=== PATIENT | male | born 1950 | race Caucasian/White ===

== ENCOUNTER 2024-03-09 16:54 | Emergency (ER) | payer MEDICARE, SELFPAY ==
[2024-03-09 17:02] VITALS: BP 141/79; PULSE 74; TEMP 36.6; O2SAT 100; BMI 23.6
--- NOTE | 2024-03-09 17:46 | CT_ITS ---
The [address] [address] Patient Name: MIMI MCBRIDE MRN: [id number] date: 1950 Sex: M Assigned Patient Location: ER Current Patient Location: Accession/Order Number: [id number] Exam Date: 03/09/2024 18:06 Report Date: 03/09/2024 20:15 At the request of: HORTENCIA RODRÍGUEZ Procedure: CT abdomen pelvis wo con EXAM: CT abdomen pelvis wo con , 03/09/2024 HISTORY: right flank pain, r/o stone COMPARISON: None. TECHNIQUE: CT scan of the abdomen and pelvis was performed without contrast, using kidney stone protocol. Coronal and sagittal reconstructions were performed. Dose reduction techniques were achieved by using automated exposure control and/or adjustment of mA and/or kV according to patient size and/or use of iterative reconstruction technique. FINDINGS: An obstructing calculus is seen in the distal right ureter measuring 9 mm, at the uretero-vesicle junction, with mild hydronephrosis and hydroureter. Mild right sided perinephric stranding. Punctate intrarenal calculi are seen in the right kidney measuring 1-2 mm. Probable subcentimeter cortical cyst mid right kidney. The left kidney shows subcentimeter hyperdense cyst. No stone or dilatation in the left kidney and ureter. Urinary bladder is partially filled. Moderate prostatic enlargement. The liver demonstrates a subcentimeter round hypodensity in the left lobe, likely representing a cyst or hemangioma. The spleen, pancreas, gallbladder, bile ducts and both adrenal glands are unremarkable. Moderate atherosclerotic calcification of the abdominal aorta. Unremarkable IVC. No enlarged lymph node in the abdomen, retroperitoneum or the pelvis. Colonic diverticulosis predominantly involving the sigmoid and left-sided colon. No bowel loop dilatation or bowel wall thickening. The appendix is unremarkable. No free fluid in the peritoneal cavity. The bone windows demonstrate mild degenerative changes lower thoracic and lumbar spine. Moderate disc disease at L5-S1 level. Scans through the lung bases are clear. CT/CT abdomen pelvis wo con IMPRESSION: 1. Obstructing calculus in the distal right ureter measuring 9 mm, with mild hydronephrosis and hydroureter. 2. Punctate right nephrolithiasis. 3. Colonic diverticulosis without diverticulitis. 4. Moderate prostatic enlargement. Electronically authenticated by: VANE PUENTES Date: 03/09/2024 20:15
--- NOTE | 2024-03-09 17:47 | ED_ITS ---
Documented by User: Domenic Mitchell MD 03/09/24 17:48 HPI HPI - General Adult General Chief complaint: Urogenital-Male Stated complaint: BACK PAIN Time Seen by Provider: 03/09/24 17:44 Source: patient Mode of arrival: walk-in Limitations: no limitations History of Present Illness HPI narrative: 73-year-old male presents for right flank pain. It started 3 days ago and was not precipitated by any injury. It feels like when he has had a kidney stone in the past. The pain seemed to get better but then came back again this afternoon. No dysuria or hematuria. No fever or vomiting or left-sided pain. The pain is moderate to severe. Related Data Home Medications ?Medication ?Instructions ?Recorded ?Confirmed gabapentin 100 mg capsule mg 03/09/24 glyburide 5 mg tablet mg 03/09/24 insulin glargine 100 unit/mL (3 unit subcut 03/09/24 mL) subcutaneous pen (Lantus Solostar U-100 Insulin) lisinopril 20 tab 03/09/24 mg-hydrochlorothiazide 25 mg tablet simvastatin 40 mg tablet mg 03/09/24 Allergies Allergy/AdvReac Type Severity Reaction Status Date / Time No Known Drug Allergies Allergy Verified 03/09/24 17:01 Opioid HPI Opioid Management Most Recent Opioid Data: Last JUN Pain Assessment 03/09/24 18:03 Review of Systems ROS Narrative A ten point review of systems is negative except as noted above. PFSH PFSH Social History Little interest or pleasure in doing things: not at all Feeling down, depressed, or hopeless: not at all Exam Narrative Exam Narrative: Nurses note and vital signs reviewed and patient is not hypoxic. General: The patient appears well and in no apparent distress. Patient is resting comfortably on cart. Skin: Warm, dry, no pallor noted. There is no rash noted. Head: Normocephalic, atraumatic Eye: Normal conjunctiva, no drainage Ears, Nose, Mouth, and Throat: oral mucosa is moist. Nares patent. Cardiovascular: Regular Rate and Rhythm Respiratory: Patient is in no distress, no accessory muscle use, lungs are clear to auscultation, no wheezing, rales or rhonchi Back: non-tender, no CVA tenderness bilaterally to percussion. GI: Soft and nontender Musculoskeletal: The patient has no evidence of calf tenderness, no pitting edema, symmetrical pulses noted bilaterally Neurological: A&O, normal speech Psychiatric: Cooperative Constitutional Vital Signs, click to edit/add: Last Vital Signs Temp 97.8 F 03/09/24 17:02 Pulse 74 03/09/24 17:02 Resp 16 03/09/24 17:02 BP 141/79 03/09/24 17:02 Pulse Ox 100 03/09/24 17:02 O2 Del Method Room Air 03/09/24 17:02 Course Vital Signs Vital signs: Vital Signs Temperature 97.8 F 03/09/24 17:02 Pulse Rate 74 03/09/24 17:02 Respiratory Rate 16 03/09/24 17:02 Blood Pressure 141/79 03/09/24 17:02 Pulse Oximetry 100 03/09/24 17:02 Oxygen Delivery Method Room Air 03/09/24 17:02 Temperature 97.8 F 03/09/24 17:02 Pulse Rate 74 03/09/24 17:02 Respiratory Rate 16 03/09/24 17:02 Blood Pressure 141/79 03/09/24 17:02 Pulse Oximetry 100 03/09/24 17:02 Oxygen Delivery Method Room Air 03/09/24 17:02 Medical Decision Making Lab Data Labs: Lab Results 03/09/24 03/09/24 Range/Units 17:50 17:55 WBC 11.9 H (4.0-11.0) 10^3/uL RBC 5.09 (4.70-6.10) 10^6/uL Hgb 15.2 (14.0-18.0) g/dL Hct 44.4 (42.0-54.0) % MCV 87.2 (80.0-94.0) fL MCH 29.9 (25.9-34.0) pg MCHC 34.2 (29.9-35.2) g/dL RDW 12.5 (11.0-15.0) % Plt Count 175 (150-450) 10^3/uL MPV 12.1 (9.5-13.5) fL Neut % (Auto) 75.5 H (43.0-75.0) % Lymph % (Auto) 11.1 L (20.5-60.0) % [place] % (Auto) 8.7 (1.7-12.0) % Eos % (Auto) 3.6 (0.9-7.0) % Baso % (Auto) 0.8 (0.2-2.0) % Neut # (Auto) 9.0 H (1.4-6.5) 10^3/uL Lymph # (Auto) 1.3 (1.2-3.8) 10^3/uL [place] # (Auto) 1.0 H (0.3-0.8) 10^3/uL Eos # (Auto) 0.4 (0.0-0.7) 10^3/uL Baso # (Auto) 0.1 (0.0-0.1) 10^3/uL Abs Immat Gran (auto) 0.03 (0.00-0.03) 10^3/uL Imm/Tot Granulo (auto) 0.3 (0.0-0.5) % Sodium 139 (136-145) mmol/L Potassium 4.2 (3.5-5.1) mmol/L Chloride 103 (98-107) mmol/L Carbon Dioxide 28.8 (21.0-32.0) mmol/L Anion Gap 11.4 BUN 27.0 H (7.0-18.0) mg/dL Creatinine 1.59 H (0.70-1.30) mg/dL Est GFR ( Amer) 52 L (>=60 mL/min/1.73m^2) Est GFR (Non-Af Amer) 43 L (>=60 mL/min/1.73m^2) BUN/Creatinine Ratio 17.0 Glucose 180 H (74-106) mg/dL Calcium 9.8 (8.5-10.1) mg/dL Urine Color Lt. yellow (YELLOW) Urine Clarity Clear (CLEAR) Urine pH 5.5 (5.0-9.0) Ur Specific [place] 1.025 (1.005-1.025) Urine Protein Negative (NEG/TRACE) mg/dL Urine Glucose (UA) Negative (NEGATIVE) mg/dL Urine Ketones Negative (NEGATIVE) mg/dL Urine Occult Blood Moderate A (NEGATIVE) Urine Nitrite Negative (NEGATIVE) Urine Bilirubin Negative (NEGATIVE) Urine Urobilinogen 0.2 (0.2-1.0) EU/dL Ur Leukocyte Esterase Negative (NEGATIVE) Urine RBC 5-10 A (0-2) #/HPF Urine WBC 0-2 A (NONE SEEN) #/HPF Ur Squamous Epith Cells None seen (NONE/RARE) #/LPF Urine Crystals None seen (None Seen) #/HPF Urine Bacteria Trace A (NONE SEEN) #/HPF Urine Casts None seen (NONE SEEN) #/LPF Urine Mucus None seen (NONE SEEN) Ur Culture Indicated? No Imaging Data CT scan - abdomen: Radiologist's impression: ITS Impressions Abdomen/Pelvis CT 03/09/24 17:46 IMPRESSION: 1. Obstructing calculus in the distal right ureter measuring 9 mm, with mild hydronephrosis and hydroureter. 2. Punctate right nephrolithiasis. 3. Colonic diverticulosis without diverticulitis. 4. Moderate prostatic enlargement. Electronically authenticated by: VANE PUENTES Date: 03/09/2024 20:15 Discharge Plan Discharge Chief Complaint: Urogenital-Male Clinical Impression: Kidney stone on right side Patient Disposition: Home, Self-Care Prescriptions / Home Meds: No Action gabapentin 100 mg capsule glyburide 5 mg tablet simvastatin 40 mg tablet lisinopril-hydrochlorothiazide 20-25 mg tablet insulin glargine [Lantus Solostar U-100 Insulin] 100 unit/mL (3 mL) insulin pen SUBCUT Print Language: Congolese Instructions: Kidney Stones (ED), Hydronephrosis (ED) Additional Instructions: Please do not hesitate to return for intractable pain, nausea, vomiting, muscle aches, back pain, fever, chills, or new or worsening symptoms. You will want to make certain that you follow-up with a urologist to soon as possible. Please let them know that you were seen in the emergency department and you have a 9 mm ureteral stone on the right side. All of the documentation is in order and they may call the hospital to get records to facilitate continuity of care. Referrals: Physician,Non-Staff, [Physician] - 1 week Kian Dan MD [Physician] - 1 week (9 mm right ureteral stone) Documented by User: Katlyn Busby, 03/09/24 20:40 HPI HPI - General Adult General Chief complaint: Urogenital-Male Stated complaint: BACK PAIN Time Seen by Provider: 03/09/24 17:44 Related Data Home Medications ?Medication ?Instructions ?Recorded ?Confirmed gabapentin 100 mg capsule mg 03/09/24 glyburide 5 mg tablet mg 03/09/24 insulin glargine 100 unit/mL (3 unit subcut 03/09/24 mL) subcutaneous pen (Lantus Solostar U-100 Insulin) lisinopril 20 tab 03/09/24 mg-hydrochlorothiazide 25 mg tablet simvastatin 40 mg tablet mg 03/09/24 Allergies Allergy/AdvReac Type Severity Reaction Status Date / Time No Known Drug Allergies Allergy Verified 03/09/24 17:01 Opioid HPI Opioid Management Most Recent Opioid Data: Last MAR Pain Assessment 03/09/24 18:03 PFSH PFSH Social History Little interest or pleasure in doing things: not at all Feeling down, depressed, or hopeless: not at all Exam Constitutional Vital Signs, click to edit/add: Last Vital Signs Temp 97.8 F 03/09/24 17:02 Pulse 74 03/09/24 17:02 Resp 16 03/09/24 17:02 BP 141/79 03/09/24 17:02 Pulse Ox 100 03/09/24 17:02 O2 Del Method Room Air 03/09/24 17:02 Course Vital Signs Vital signs: Vital Signs Temperature 97.8 F 03/09/24 17:02 Pulse Rate 74 03/09/24 17:02 Respiratory Rate 16 03/09/24 17:02 Blood Pressure 141/79 03/09/24 17:02 Pulse Oximetry 100 03/09/24 17:02 Oxygen Delivery Method Room Air 03/09/24 17:02 Temperature 97.8 F 03/09/24 17:02 Pulse Rate 74 03/09/24 17:02 Respiratory Rate 16 03/09/24 17:02 Blood Pressure 141/79 03/09/24 17:02 Pulse Oximetry 100 03/09/24 17:02 Oxygen Delivery Method Room Air 03/09/24 17:02 Medical Decision Making MDM Narrative Medical decision making narrative: 19:00 I assumed care from the patient from my colleague at 7 PM when I assumed care of the department. I was informed that this gentleman has a history of renal calculi and was presenting with: signs and symptoms of his stone. Preliminary assessment revealed that there was a stone on the right side and we wanted to have an official report returned before ultimate disposition of the patient. 20:32 CT scan returned. He had an opportunity to review the report and discussed the results with the patient and clarify a few more details. First of all, I explained to the patient that he had a 9 mm stone in his right UVJ. It explained to him that a stone of this size typically is going to require some surgical intervention. The patient does not know how big of stone he has passed in the past by himself. The patient does not currently have a urologist. He had a urologist but they had . The patient is familiar with Dr. Dan as his daughter does see that physician as well. Dr. Dan happens to also be on-call today. The pain is currently a 0 out of 10. In the past he has used Flomax, [place], and Zofran and has had good results. I did review the patient's blood work. He has a white blood cell count of 11.9. He did have some vomiting 3 days ago. And he is in pain so I think he has some stress demargination. His BUN is creatinine are 27/1.59. I did query his medical record documentation I do not see an old BUN or creatinine to compare it to. This should also be followed. The patient has mild hydronephrosis and hydroureter at this time and is no evidence of sepsis nor does he have evidence of an infection. Therefore, I think the patient is safe to be dispositioned home with expectant outpatient management and therapy. I specifically spoke to the patient and his about reasons to return to the emergency department. These included: Fever, chills, rigors, intractable nausea, vomiting, or pain. Patient should return if there is myalgias or inability to urinate. Patient expresses verbal understanding. Patient's is at bedside and they do ask about diabetes. The patient apparently was recently started on Lantus insulin and they are not sure how the current medications I am prescribing will affect his diabetes medications so I explained that to them that it will not affect the diabetic medications however his blood sugar can be an indicator of his illness as his blood sugar can go up with infections etc. All questions were answered to the patient and his satisfaction. I did review all of the scan with them as well. Medical Records Medical records reviewed: Yes I reviewed the patient's medical records (Patient has no laboratories for comparison.) Lab Data Lab results reviewed: Yes I reviewed the patient's lab results Labs: Lab Results 03/09/24 03/09/24 Range/Units 17:50 17:55 WBC 11.9 H (4.0-11.0) 10^3/uL RBC 5.09 (4.70-6.10) 10^6/uL Hgb 15.2 (14.0-18.0) g/dL Hct 44.4 (42.0-54.0) % MCV 87.2 (80.0-94.0) fL MCH 29.9 (25.9-34.0) pg MCHC 34.2 (29.9-35.2) g/dL RDW 12.5 (11.0-15.0) % Plt Count 175 (150-450) 10^3/uL MPV 12.1 (9.5-13.5) fL Neut % (Auto) 75.5 H (43.0-75.0) % Lymph % (Auto) 11.1 L (20.5-60.0) % [place] % (Auto) 8.7 (1.7-12.0) % Eos % (Auto) 3.6 (0.9-7.0) % Baso % (Auto) 0.8 (0.2-2.0) % Neut # (Auto) 9.0 H (1.4-6.5) 10^3/uL Lymph # (Auto) 1.3 (1.2-3.8) 10^3/uL [place] # (Auto) 1.0 H (0.3-0.8) 10^3/uL Eos # (Auto) 0.4 (0.0-0.7) 10^3/uL Baso # (Auto) 0.1 (0.0-0.1) 10^3/uL Abs Immat Gran (auto) 0.03 (0.00-0.03) 10^3/uL Imm/Tot Granulo (auto) 0.3 (0.0-0.5) % Sodium 139 (136-145) mmol/L Potassium 4.2 (3.5-5.1) mmol/L Chloride 103 (98-107) mmol/L Carbon Dioxide 28.8 (21.0-32.0) mmol/L Anion Gap 11.4 BUN 27.0 H (7.0-18.0) mg/dL Creatinine 1.59 H (0.70-1.30) mg/dL Est GFR ( Amer) 52 L (>=60 mL/min/1.73m^2) Est GFR (Non-Af Amer) 43 L (>=60 mL/min/1.73m^2) BUN/Creatinine Ratio 17.0 Glucose 180 H (74-106) mg/dL Calcium 9.8 (8.5-10.1) mg/dL Urine Color Lt. yellow (YELLOW) Urine Clarity Clear (CLEAR) Urine pH 5.5 (5.0-9.0) Ur Specific [place] 1.025 (1.005-1.025) Urine Protein Negative (NEG/TRACE) mg/dL Urine Glucose (UA) Negative (NEGATIVE) mg/dL Urine Ketones Negative (NEGATIVE) mg/dL Urine Occult Blood Moderate A (NEGATIVE) Urine Nitrite Negative (NEGATIVE) Urine Bilirubin Negative (NEGATIVE) Urine Urobilinogen 0.2 (0.2-1.0) EU/dL Ur Leukocyte Esterase Negative (NEGATIVE) Urine RBC 5-10 A (0-2) #/HPF Urine WBC 0-2 A (NONE SEEN) #/HPF Ur Squamous Epith Cells None seen (NONE/RARE) #/LPF Urine Crystals None seen (None Seen) #/HPF Urine Bacteria Trace A (NONE SEEN) #/HPF Urine Casts None seen (NONE SEEN) #/LPF Urine Mucus None seen (NONE SEEN) Ur Culture Indicated? No Imaging Data CT scan - abdomen: Radiologist's impression: ITS Impressions Abdomen/Pelvis CT 03/09/24 17:46
[2024-03-09] MEDS: MORPHINE SULFATE 4 MG/ML VIAL IV (18:03)
[2024-03-09] MEDS: ONDANSETRON PF 4 MG/2 ML VIAL IV (18:03)
[2024-03-09 18:07] LABS: Basophils Absolute Auto 0.1 10^3/uL (0.0-0.1); Basophils Percent Auto 0.8 % (0.2-2.0); Eosinophils Absolute Auto 0.4 10^3/uL (0.0-0.7); Eosinophils Percent Auto 3.6 % (0.9-7.0); Hematocrit 44.4 % (42.0-54.0); Hemoglobin 15.2 g/dL (14.0-18.0); Immature Granulocytes Abs Auto 0.03 10^3/uL (0.00-0.03); Immature Granulocytes Pct Auto 0.3 % (0.0-0.5); Lymphocytes Absolute Auto 1.3 10^3/uL (1.2-3.8); Lymphocytes Percent Auto 11.1 % (20.5-60.0); Mean Corpuscular HGB Conc 34.2 g/dL (29.9-35.2); Mean Corpuscular Hemoglobin 29.9 pg (25.9-34.0); Mean Corpuscular Volume 87.2 fL (80.0-94.0); Mean Platelet Volume 12.1 fL (9.5-13.5); Monocytes Percent Auto 8.7 % (1.7-12.0); Neutrophils Percent Auto 75.5 % (43.0-75.0); Platelet Count 175 10^3/uL (150-450); Red Blood Count 5.09 10^6/uL (4.70-6.10); Red Cell Distribution Width 12.5 % (11.0-15.0); White Blood Count 11.9 10^3/uL (4.0-11.0)
[2024-03-09 18:17] LABS: Bilirubin Urine NEGATIVE (NEGATIVE); Blood Urine MODERATE (NEGATIVE); Clarity Urine CLEAR (CLEAR); Color Urine LT. YELLOW (YELLOW); Glucose Urine UA NEGATIVE (NEGATIVE); Ketones Urine NEGATIVE (NEGATIVE); Leukocyte Esterase Urine NEGATIVE (NEGATIVE); Nitrite Urine NEGATIVE (NEGATIVE); Protein Urine NEGATIVE (NEG/TRACE); Specific Gravity Urine 1.025 (1.005-1.025); Urobilinogen Urine 0.2 EU/dL (0.2-1.0); pH Urine 5.5 (5.0-9.0)
[2024-03-09 18:19] LABS: Anion Gap 11.4; Calcium 9.8 mg/dL (8.5-10.1); Carbon Dioxide 28.8 mmol/L (21.0-32.0); Chloride 103 mmol/L (98-107); Estimated GFR (African America 52 (>=60 mL/min/1.73m^2); Estimated GFR (Non-African Ame 43 (>=60 mL/min/1.73m^2); Glucose 180 mg/dL (74-106); Potassium 4.2 mmol/L (3.5-5.1); Sodium 139 mmol/L (136-145)
[2024-03-09 18:25] LABS: Bacteria Urine TRACE #/HPF (NONE SEEN); Cast Seen? NONE SEEN #/LPF (NONE SEEN); Crystals Seen? None Seen #/HPF (None Seen); Mucus Urine NONE SEEN (NONE SEEN); Squamous Epithelial Cell Urine NONE SEEN #/LPF (NONE/RARE); Urine Culture Indicated NO; WBC Urine 0-2 #/HPF (NONE SEEN)
[2024-03-09] MEDS: HYDROCODONE/ACET 5-325 MG TABLET 2 TAB PO (21:07)
[2024-03-09 21:15] VITALS: BP 132/86; PULSE 66; O2SAT 100
== END 2024-03-09 21:16 | disposition home or self-care (01) ==
PROVIDERS: Emergency Provider Emergency Medicine; Family Provider Family Medicine; PCP Family Medicine
DX: N13.2 Hydronephrosis with renal and ureteral calculous obstruction (principal); Z87.442 Personal history of urinary calculi; K57.30 Diverticulosis of large intestine without perforation or abscess without bleeding
CPT/HCPCS: 36415; 74176; 80048; 81001; 85025; 96374; 96375; 99285; J2270; J2405

== ENCOUNTER 2024-03-11 21:40 | Emergency (ER) | payer MEDICARE, SELFPAY ==
[2024-03-11 21:45] VITALS: BP 153/92; PULSE 79; TEMP 36.4; O2SAT 100; BMI 23.6
--- NOTE | 2024-03-11 21:51 | ED_ITS ---
HPI - Abdominal Pain General Chief Complaint: Abdominal Pain Stated Complaint: BACK PAIN Time Seen by Provider: 03/11/24 21:46 Source: patient Mode of arrival: walk-in Limitations: no limitations History of Present Illness HPI narrative: This 73-year-old male with a history of kidney stones who was seen in this emergency department on 03 09, last Tuesday and found to have a 9 mm kidney stone at the right distal ureter at the UVJ junction with mild hydronephrosis and hydroureter with some mild right sided perinephric stranding presents for evaluation of right sided flank pain. The patient was discharged home with a prescription for Ringgold and Flomax. He has not had any pain until today. He states he took a Ringgold around 6 PM but it did not help his pain. He is not having any nausea or vomiting. He denies any dysuria or hematuria. He has not had a fever. Patient states he is calling Dr. Dan in the morning for a follow-up appointment from the ED visit. Related Data Home Medications ?Medication ?Instructions ?Recorded ?Confirmed gabapentin 100 mg capsule mg 03/09/24 glyburide 5 mg tablet mg 03/09/24 insulin glargine 100 unit/mL (3 unit subcut 03/09/24 mL) subcutaneous pen (Lantus Solostar U-100 Insulin) lisinopril 20 tab 03/09/24 mg-hydrochlorothiazide 25 mg tablet simvastatin 40 mg tablet mg 03/09/24 Previous Rx's ?Medication ?Instructions ?Recorded hydrocodone 5 mg-acetaminophen 325 1 tab PO Q4H PRN pain #14 tabs 03/09/24 mg tablet ondansetron 4 mg disintegrating 4 mg PO Q6H PRN nausea and 03/09/24 tablet vomiting 4 days #14 tabs tamsulosin 0.4 mg capsule (Flomax) 0.4 mg PO DAILY #14 caps 03/09/24 Allergies Allergy/AdvReac Type Severity Reaction Status Date / Time No Known Drug Allergies Allergy Verified 03/11/24 21:49 Review of Systems ROS0 Status of ROS 10 or more systems reviewed and unremark able except as noted in history and below PFSH PFSH Social History Little interest or pleasure in doing things: not at all Feeling down, depressed, or hopeless: not at all Exam Narrative Exam Narrative: Vital signs and Nursing Notes reviewed: Patient is afebrile with a normal pulse, blood pressure is elevated at 153/92, he is not hypoxic with pulse ox of 100% on room air General: Awake, alert, oriented, mildly uncomfortable appearing male, no respiratory distress, no active vomiting HEENT: Normocephalic atraumatic, mucous membranes are moist and pink, eyes are clear, normal conjunctiva, vision is grossly intact Chest: Lungs are clear to auscultation with good air entry, there is no wheezing rhonchi or rales appreciated no accessory muscle use, patient is speaking in complete sentences-no chest wall tenderness to palpation CVS: Regular rate and rhythm S1-S2, no murmurs rubs or gallops, pulses are brisk and equal bilaterally ABD: Soft, nondistended, mild right mid to low flank tenderness to palpation and tenderness along the distribution of the right ureter and right lower quadrant with no rebound guarding or rigidity Extremities: Moving all extremities, no lower extremity tenderness or swelling noted, negative Homans' sign, pulses are brisk and equal bilaterally Skin: Normal in appearance without rash,pallor, petechiae or purpura Neuro: No focal deficits Constitutional Vital Signs, click to edit/add: Last Vital Signs Temp 97.6 F 03/11/24 21:45 Pulse 79 03/11/24 21:45 Resp 18 03/11/24 21:45 BP 153/92 H 03/11/24 21:45 Pulse Ox 100 03/11/24 21:45 O2 Del Method Room Air 03/11/24 21:45 Course Vital Signs Vital signs: Vital Signs Temperature 97.6 F 03/11/24 21:45 Pulse Rate 79 03/11/24 21:45 Respiratory Rate 18 03/11/24 21:45 Blood Pressure 153/92 H 03/11/24 21:45 Pulse Oximetry 100 03/11/24 21:45 Oxygen Delivery Method Room Air 03/11/24 21:45 Temperature 97.6 F 03/11/24 21:45 Pulse Rate 79 03/11/24 21:45 Respiratory Rate 18 03/11/24 21:45 Blood Pressure 153/92 H 03/11/24 21:45 Pulse Oximetry 100 03/11/24 21:45 Oxygen Delivery Method Room Air 03/11/24 21:45 MDM - Abdominal Pain MDM Narrative Medical decision making narrative: This 73-year-old male who was diagnosed with a 9 mm kidney stone on Tuesday with mild hydronephrosis presents for reevaluation of pain in the right flank and right lower quadrant. He is not having any nausea or vomiting. He is also been constipated for the past several days. He has been taking his 's stool softeners but still having episodes of constipation. He is not having any nausea or vomiting. He does not typically take any narcotic analgesics. He was discharged home with a prescription for Ringgold and has only taken 1 since being discharged home. He has not had any fever. Due to the obstructive nature of the stone repeat labs were ordered and an x-ray was ordered of the abdomen. He has a normal white count and hemoglobin. His BUN and creatinine are stable. Urinalysis was ordered and is negative for infection. He was medicated with a liter of normal saline, Zofran and 1 mg of IV Dilaudid as he stated that the Ringgold he took earlier in the night did not help him. On reevaluation his pain is under control. Abdominal series x-ray shows a large amount of stool in the right side of the colon. This was discussed with the patient and his . He was given a dose of milk of magnesia in the emergency department and will be discharged home. He states that his pain is starting to come back. Will be given another 0.5 mg of IV Dilaudid prior to discharge home and was encouraged to use Metamucil after getting home and return to the emergency department for worsening symptoms, nausea, intractable vomiting or any concerns. Lab Data Labs: Lab Results 03/11/24 03/11/24 Range/Units 22:07 23:27 WBC 10.3 (4.0-11.0) 10^3/uL RBC 4.69 L (4.70-6.10) 10^6/uL Hgb 14.2 (14.0-18.0) g/dL Hct 40.8 L (42.0-54.0) % MCV 87.0 (80.0-94.0) fL MCH 30.3 (25.9-34.0) pg MCHC 34.8 (29.9-35.2) g/dL RDW 12.3 (11.0-15.0) % Plt Count 167 (150-450) 10^3/uL MPV 12.2 (9.5-13.5) fL Neut % (Auto) 75.3 H (43.0-75.0) % Lymph % (Auto) 12.6 L (20.5-60.0) % [place] % (Auto) 7.2 (1.7-12.0) % Eos % (Auto) 3.9 (0.9-7.0) % Baso % (Auto) 0.6 (0.2-2.0) % Neut # (Auto) 7.7 H (1.4-6.5) 10^3/uL Lymph # (Auto) 1.3 (1.2-3.8) 10^3/uL [place] # (Auto) 0.7 (0.3-0.8) 10^3/uL Eos # (Auto) 0.4 (0.0-0.7) 10^3/uL Baso # (Auto) 0.1 (0.0-0.1) 10^3/uL Abs Immat Gran (auto) 0.04 H (0.00-0.03) 10^3/uL Imm/Tot Granulo (auto) 0.4 (0.0-0.5) % Sodium 140 (136-145) mmol/L Potassium 3.7 (3.5-5.1) mmol/L Chloride 101 (98-107) mmol/L Carbon Dioxide 27.0 (21.0-32.0) mmol/L Anion Gap 15.7 BUN 34.0 H (7.0-18.0) mg/dL Creatinine 1.36 H (0.70-1.30) mg/dL Est GFR ( Amer) >60 (>=60 mL/min/1.73m^2) Est GFR (Non-Af Amer) 52 L (>=60 mL/min/1.73m^2) BUN/Creatinine Ratio 25.0 Glucose 237 H (74-106) mg/dL Calcium 9.1 (8.5-10.1) mg/dL Urine Color Lt. yellow (YELLOW) Urine Clarity Clear (CLEAR) Urine pH 5.5 (5.0-9.0) Ur Specific [place] >=1.030 A (1.005-1.025) Urine Protein Negative (NEG/TRACE) mg/dL Urine Glucose (UA) Negative (NEGATIVE) mg/dL Urine Ketones Negative (NEGATIVE) mg/dL Urine Occult Blood Negative (NEGATIVE) Urine Nitrite Negative (NEGATIVE) Urine Bilirubin Negative (NEGATIVE) Urine Urobilinogen 0.2 (0.2-1.0) EU/dL Ur Leukocyte Esterase Negative (NEGATIVE) Urine RBC 0-2 (0-2) #/HPF Urine WBC None seen (NONE SEEN) #/HPF Ur Squamous Epith Cells Rare (NONE/RARE) #/LPF Urine Crystals None seen (None Seen) #/HPF Urine Bacteria None seen (NONE SEEN) #/HPF Urine Casts Seen A (NONE SEEN) #/LPF Hyaline Casts Rare Urine Mucus Trace A (NONE SEEN) Ur Culture Indicated? No Discharge Plan Discharge Chief Complaint: Abdominal Pain Clinical Impression: Calculus of kidney, Constipation Patient Disposition: Home, Self-Care Time of Disposition Decision: 00:05 Condition: Good Prescriptions / Home Meds: No Action gabapentin 100 mg capsule glyburide 5 mg tablet simvastatin 40 mg tablet lisinopril-hydrochlorothiazide 20-25 mg tablet insulin glargine [Lantus Solostar U-100 Insulin] 100 unit/mL (3 mL) insulin pen SUBCUT hydrocodone-acetaminophen 5-325 mg tablet 1 tab PO Q4H MDD 6 tabs PRN (Reason: pain) Qty: 14 0RF ondansetron 4 mg tablet,disintegrating 4 mg PO Q6H PRN (Reason: nausea and vomiting) 4 Days Qty: 14 0RF tamsulosin [Flomax] 0.4 mg capsule 0.4 mg PO DAILY Qty: 14 0RF Print Language: Macedonian Instructions: Constipation (ED), Kidney Stones (ED), High Fiber Diet (ED) Referrals: SHANTAL RILEY [Primary Care Provider] - 1 week
--- NOTE | 2024-03-11 22:05 | XR_ITS ---
The [address] [address] Patient Name: MIMI MCBRIDE MRN: [id number] date: 1950 Sex: M Assigned Patient Location: ER Current Patient Location: ER Accession/Order Number: [id number] Exam Date: 03/11/2024 22:10 Report Date: 03/11/2024 23:32 At the request of: FEDE MARKER Procedure: XR abdomen min 2V EXAM: XR abdomen min 2V HISTORY: right sided kidney stone on CT 03/09 COMPARISON: CT abdomen pelvis wo con Date 03/09/2024 TECHNIQUE: Supine and upright views of the abdomen FINDINGS: Nonspecific bowel gas pattern is seen. No air-filled distended loops of bowel is seen to suggest bowel obstruction. Large volume of stool is seen in the colon. No gross pneumoperitoneum is seen. Approximately 6 mm calcific density is seen projecting over the right pelvic region, which may represent the right posterior urinary bladder is seen on recent prior CT examination. No obvious acute osseous abnormality is seen. XR/XR abdomen min 2V IMPRESSION: Approximately 6 mm calcific density is seen projecting over the right pelvic region, which may represent the right posterior urinary bladder is seen on recent prior CT examination. Electronically authenticated by: SIMONE TREVINO Date: 03/11/2024 23:32
[2024-03-11 22:25] LABS: Basophils Absolute Auto 0.1 10^3/uL (0.0-0.1); Basophils Percent Auto 0.6 % (0.2-2.0); Eosinophils Absolute Auto 0.4 10^3/uL (0.0-0.7); Eosinophils Percent Auto 3.9 % (0.9-7.0); Hematocrit 40.8 % (42.0-54.0); Hemoglobin 14.2 g/dL (14.0-18.0); Immature Granulocytes Abs Auto 0.04 10^3/uL (0.00-0.03); Immature Granulocytes Pct Auto 0.4 % (0.0-0.5); Lymphocytes Absolute Auto 1.3 10^3/uL (1.2-3.8); Lymphocytes Percent Auto 12.6 % (20.5-60.0); Mean Corpuscular HGB Conc 34.8 g/dL (29.9-35.2); Mean Corpuscular Hemoglobin 30.3 pg (25.9-34.0); Mean Platelet Volume 12.2 fL (9.5-13.5); Monocytes Absolute Auto 0.7 10^3/uL (0.3-0.8); Monocytes Percent Auto 7.2 % (1.7-12.0); Neutrophils Absolute Auto 7.7 10^3/uL (1.4-6.5); Neutrophils Percent Auto 75.3 % (43.0-75.0); Platelet Count 167 10^3/uL (150-450); Red Blood Count 4.69 10^6/uL (4.70-6.10); Red Cell Distribution Width 12.3 % (11.0-15.0); White Blood Count 10.3 10^3/uL (4.0-11.0)
[2024-03-11] MEDS: ONDANSETRON PF 4 MG/2 ML VIAL IV (22:30)
[2024-03-11] MEDS: HYDROMORPHONE HCL 1 MG/ML CARTRIDGE IV (22:30)
[2024-03-11 22:34] LABS: Anion Gap 15.7; Calcium 9.1 mg/dL (8.5-10.1); Chloride 101 mmol/L (98-107); Estimated GFR (African America >60 (>=60 mL/min/1.73m^2); Estimated GFR (Non-African Ame 52 (>=60 mL/min/1.73m^2); Glucose 237 mg/dL (74-106); Potassium 3.7 mmol/L (3.5-5.1); Sodium 140 mmol/L (136-145)
[2024-03-11] MEDS: 0.9 % SODIUM CHLORIDE 1,000 ML 1000 ML IV (23:01)
[2024-03-11 23:40] LABS: Bilirubin Urine NEGATIVE (NEGATIVE); Blood Urine NEGATIVE (NEGATIVE); Clarity Urine CLEAR (CLEAR); Color Urine LT. YELLOW (YELLOW); Glucose Urine UA NEGATIVE (NEGATIVE); Ketones Urine NEGATIVE (NEGATIVE); Leukocyte Esterase Urine NEGATIVE (NEGATIVE); Nitrite Urine NEGATIVE (NEGATIVE); Protein Urine NEGATIVE (NEG/TRACE); Specific Gravity Urine >=1.030 (1.005-1.025); Urobilinogen Urine 0.2 EU/dL (0.2-1.0); pH Urine 5.5 (5.0-9.0)
[2024-03-11 23:52] LABS: Bacteria Urine NONE SEEN #/HPF (NONE SEEN); Cast Seen? SEEN #/LPF (NONE SEEN); Crystals Seen? None Seen #/HPF (None Seen); Hyaline Casts Urine RARE; Mucus Urine TRACE (NONE SEEN); RBC Urine 0-2 #/HPF (0-2); Squamous Epithelial Cell Urine RARE #/LPF (NONE/RARE); WBC Urine NONE SEEN #/HPF (NONE SEEN)
[2024-03-11 23:53] LABS: Urine Culture Indicated NO
[2024-03-12] MEDS: MORPHINE SULFATE 4 MG/ML VIAL IV (00:39)
[2024-03-12] MEDS: MAGNESIUM CITRATE 296 ML SOLUTION PO (00:40)
== END 2024-03-12 00:56 | disposition home or self-care (01) ==
PROVIDERS: Emergency Provider Emergency Medicine; Family Provider Family Medicine; PCP Family Medicine
DX: K59.00 Constipation, unspecified (principal); N20.0 Calculus of kidney
CPT/HCPCS: 36415; 74019; 80048; 81001; 85025; 96374; 96375; 99285; J1171; J2270; J2405

== ENCOUNTER 2024-03-22 07:40 | Day surgery (SDC) | payer MEDICARE, SELFPAY ==
[2024-03-22] VITALS (10 sets, daily range): BP systolic 138–154; BP diastolic 63–90; PULSE 64–94; TEMP 36.6–36.7; O2SAT 96–99; BMI 23.3; BMI 26.2
--- NOTE | 2024-03-22 | FL_ITS ---
The [address] [address] Patient Name: MIMI MCBRIDE MRN: [id number] date: 1950 Sex: M Assigned Patient Location: [facility] Current Patient Location: Accession/Order Number: [id number] Exam Date: 03/22/2024 10:00 Report Date: 03/23/2024 07:46 At the request of: ANIKET DEMARCO Procedure: FL fluoroscopy <1hr NON-READ EXAM: FL fluoroscopy <1hr NON-READ HISTORY: TECHNIQUE: FINDINGS: Please see Operative Report. Electronically authenticated by: RADIOLOGIST NO Date: 03/23/2024 07:46
--- OUTSIDE RECORDS SUMMARY | 2024-03-22 07:44 | XMS_ITS | CCD ---
Author Organization [facility] Care Team Providers Care 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 Name Role Phone CRICKET GERMAIN Admitting Unavailable CRICKET GERMAIN Attending Unavailable CRICKET GERMAIN Consulting Unavailable SHANTAL KIM Consulting Unavailable MD Shantal Kim Primary Care Provider MD Shantal Kim Attending Provider [phone] Shantal Kim MD Unavailable MD Shantal Kim Primary Care Provider MD Shantal Kim Attending Provider SHANTAL KIM Referring UnavailNOÉ Vasques Attending Unavailable PARVEZ MARTÍNEZ Attending Unavailable SHANTAL KIM Referring UnavailCORIE Mast Attending Unavailable SHANTAL KIM Referring UnavailMD Shantal Cox Primary Care Provider MD Shantal Kim Attending Provider [phone] Unavailable Primary Care Provider UnavailShantal Cox Attending Unavailable Shantal Kim Admitting Unavailable Shantal Kim Primary Care Unavailable Dayo Olvera Admitting Unavailable Dayo Olvera Attending Unavailable Shantal Kim Primary Care Unavailable LEANDRA CASTRO Referring Unavailable PROVIDER, UNKNOWN Attending Unavailable MIKEL GUAJARDO Admitting Unavailable GABRIELE MORIN Attending Unavailable CONSULT, IP SURGERY UROLOGY Consulting Unav ailable MIKEL GUAJARDO Admitting Unavailable LEANDRA CASTRO Referring Unavailable Kian DAN Attending Unavailable Kian DAN Attending Unavailable Kian DAN Admitting Unavailable Kian DAN Attending Unavailable Medications Current Medications Medication Drug Class(es) Dates Sig (Normalized) Sig (Original) acetaminophen 325 mg / HYDROcodone bitartrate 5 mg oral tablet (3 sources) Opioid Agonist Start: 03-09-2020 take 1 tablet by mouth every four to six hours Hydrocodone-Acetam inophen ([place]) 5-325 mg tablet Active 1 TAB PO EVERY 4-6 HOURS 12 March 09, 2020 acetaminophen 325 mg / oxyCODONE hydrochloride 5 mg oral tablet (3 sources) Opioid Agonist Start: 11-26-2019 take 1 tablet by mouth every six hours Oxycodone-Acetamin ophen (Percocet) 5-325 mg tablet Active 1 - 2 TAB PO Q6H 20 November 26, 2019 cephalexin 500 mg oral capsule (3 sources) Cephalosporin Antibacterial Start: 11-26-2019 take 2 capsules by mouth twice daily Cephalexin (Keflex) 500 mg capsule Active 1000 MG PO Twice daily 29 10November 26, 2019 12:00am dextrose 10 % iv infusion (1 source) Start: 03-15-2024 dextrose 10 % iv infusion docusate sodium 50 mg / sennosides, fdc 8.6 mg oral tablet (3 sources) Start: 11-26-2019 take 2 tablets by mouth once daily at bedtime Sennosides-Docusat e Sodium (Senna Plus) 8.6-50 mg tablet Active 2 TAB PO Daily at bedtime November 26, 2019 12:00am ibuprofen 600 mg oral tablet (3 sources) Nonsteroidal Anti-inflammatory Drug Start: 11-26-2019 take 600 mg by mouth every eight hours Ibuprofen Active 600 MG PO Q8H November 26, 2019 12:00am insulin, regular, human 100 unt/ml injectable solution (1 source) Insulin Start: 03-15-2024 inject 2-12 [IU] by subcutaneous injection every six hours 2-12 Units, Subcutaneous, EVERY 6 HOURS, First dose on Tue03/15/24 at 0200, Until Discontinued Start: 03-15-2024 inject 2-12 [IU] by subcutaneous injection every six hours 2-12 Units, Subcutaneous, EVERY 6 HOURS, First dose on Tue03/15/24 at 0200, Until Discontinued ondansetron 4 mg oral tablet (6 sources) Serotonin-3 Receptor Antagonist Start: 03-09-2020 take 1 tablet by mouth every eight hours Ondansetron Hcl (Zofran) 4 mg tablet Active 4 MG PO Q8H 15 March 09, 2020 1:00am Start: 11-26-2019 take 4 mg by mouth e very eight hours Ondansetron Active 4 MG PO Q8H November 26, 2019 12:00am oxyCODONE hydrochloride 5 mg oral tablet (1 source) Opioid Agonist Start: 03-15-2024 End: 03-18-2024 take 1 tablet by mouth every six hours as needed for pain oxyCODONE 5 MG immediate release tablet Indications: Nephrolithiasis Take 1 Tablet by mouth every 6 hours as needed for Pain for up to 3 days. 12 Tablet 03/15/2024 10:13 AM EST 03/15/2024 03/18/2024 Active tamsulosin hydrochloride 0.4 mg oral capsule (8 sources) alpha-Adrenerg ic Cruz Start: 03-15-2024 take 1 capsule by mouth once daily tamsulosin (FLOMAX) 0.4 MG capsule Take 1 Capsule by mouth daily. 60 Capsule 03/15/2024 Active Start: 03-15-2024 take 0.4 mg by mouth once [place] y 0.4 mg, Oral, DAILY, First dose on Tue03/15/24 at 0900, Until Discontinued Start: 11-26-2019 take 1 capsule by mo [facility] once daily at bedtime Tamsulosin (Flomax) 0.4 mg capsule Active 0.4 MG PO Daily at bedtime 3 March 09, 2020 1:00am Completed/Discontinued Medications Medication Drug Class(es) Dates Sig (Normalized) Sig (Original) acetaminophen 325 mg oral tablet (1 source) Start: 03-14-2024 650 mg, Oral, EVERY 4 HOURS PRN, Starting on Tue03/14/24 at 2339, Until Discontinued, Moderate Pain (pain score 4,5,6), Mild Pain (pain score 1,2,3) 0.5 ml heparin sodium, porcine 33991 unt/ml cartridge (1 source) Unfractionated Heparin, Anti-coagulant Start: 03-15-2024 inject 5000 [IU] by subcutaneous injection twice daily 5,000 Units, Subcutaneous, 2 TIMES DAILY, First dose on Tue03/15/24 at 0000, Until Discontinued 100 ml magnesium sulfate 40 mg/ml injection (1 source) Start: 03-15-2024 End: 03-15-2024 4,000 mg, Intravenous, ONCE, 1 dose, On Tue03/15/24 at 0600 Problems Active Problems Problem Classification Problem Date Documented Date Episodic/Chronic Acute and unspecified renal failure (1 source) Acute kidney failure, unspecified; Translations: [Acute kidney failure, unspecified] Onset: 03-12-2024 Episodic Calculus of urinary tract (8 sources) Ureteric stone; Translations: [Calculus of ureter] Onset: 03-12-2024 03-09-2020 Episodic Diabetes mellitus without complication (3 sources) Type 2 diabetes mellitus without complications; Translations: [Type 2 diabetes mellitus without complication] Onset: 10-31-2018 03-15-2024 Chronic Disorders of lipid metabolism (1 source) Pure hypercholesterolemia , unspecified; Translations: [Pure hypercholesterolemia , unspecified] Onset: 01-18-2024 Chronic External cause codes: Cut/lopes (1 source) Other foreign body or object entering through skin, initial encounter; Translations: [OTH FB/OBJ ENTERING THRU SKIN INIT] Onset: 10-31-2018 Fluid and electrolyte disorders (3 sources) Hypokalemia; Translations: [Hypokalemia] 03-09-2020 Episodic Immunizations and screening for infectious disease (1 source) Encounter for immunization; Translations: [ENCOUNTER FOR IMMUNIZATION] Onset: 10-31-2018 Episodic Nausea and vomiting (1 source) Nausea with vomiting, unspecified; Translations: [Nausea with vomiting, unspecified] Onset: 03-12-2024 Episodic Open wounds of extremities (4 sources) Laceration without foreign body of right hand, initial encounter; Translations: [LACERATION W/O FB RT HAND INITIAL] Onset: 10-27-2018 Episodic Other aftercare (1 source) 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 care administrator (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) use of oral hypoglycemic drugs; Translations: [DISTANCE EDUCATION FACULTY LIAISON USE ORAL HYPOGLYCEMIC DX] Onset: 10-31-2018 Other ear and sense organ disorders (1 source) Hearing loss; Translations: [Other specified hearing loss, unspecified ear] 12-17-2022 Chronic Other ear and sense organ disorders (3 sources) Sensorineural hearing loss, bilateral; Translations: [Sensorineural hearing loss, bilateral] Onset: 02-21-2023 02-21-2023 Chronic Past or Other Problems Problem Classification Problem Date Documented Da te Episodic/Chronic Other ear and sense organ disorders (3 sources) Bilateral tinnitus; Translations: [Tinnitus, bilateral] Onset: 02-21-2023 02-21-2023 Episodic Results Test Name Value Interpretation Reference Range Facility Ambulatory Visit Summaryon 1 05-22-2023 Ambulatory Visit Summary Ambulatory Visit Summary MIMI MCBRIDE :1950 Visit Date:03/21/2024 Ambulatory Visit Instructions Your Diagnosis Ureteral stone with hydronephrosis History of kidney stones Your Care Team Attending Physician - Kian DAN MD Primary Care Physician - SHANTAL KIM MD This Is Your Medications List Contact prescribing physician if questions or concerns gabapentin (gabapentin 100 mg Cap) glyBURIDE (GlyBURIDE (Eqv-Micronase) 5 mg oral tablet) hydrochlorothiazide-l isinopril (hydrochlorothiazide- lisinopril 25 mg-20 mg Tab) insulin glargine (Lantus Solostar Pen 100 units/mL subcutaneous solution) oxycodone (oxyCODONE 5 mg Tab) sildenafil (sildenafil 50 mg Tab) simvastatin (simvastatin 40 mg Tab) tamsulosin (tamsulosin 0.4 mg Cap) Procedures Performed Colonoscopy, History of hernia repair. Discharge Vitals Temperature (Temporal Artery) 37 ???C Heart Rate (Peripheral) 89 Respiratory Rate 19 Blood Pressure 135/85 Height 175 cm Height 69 in Weight 73 kg Weight 160.937 lb BMI 23.84 What to do next You Need to Schedule the Following Appointments Follow Up with NILAM VÁSQUEZ, Kian Rai, URHerrera When: Where: [facility] [address] , [place] [address]- Medications What How Much When Instructions Unchanged gabapentin (gabapentin 100 mg Cap) 1 Capsules Contact prescribing physician if questions or concerns Unchanged glyBURIDE (GlyBURIDE (Eqv-Micronase) 5 mg oral tablet) 1 Tablets Contact prescribing physician if questions or concerns Unchanged hydrochlorothiazide-l isinopril (hydrochlorothiazide- lisinopril 25 mg-20 mg Tab) 1 Tablets Contact prescribing physician if questions or concerns Unchanged insulin glargine (Lantus Solostar Pen 100 units/ mL subcutaneous solution) 5 Units Contact prescribing physician if questions or concerns Unchanged oxycodone (oxyCODONE 5 mg Tab) 1 Tablets Contact prescribing physician if questions or concerns Unchanged sildenafil (sildenafil 50 mg Tab) 1 Tablets Contact prescribing physician if questions or concerns Unchanged simvastatin (simvastatin 40 mg Tab) 1 Tablets Contact prescribing physician if questions or concerns Unchanged tamsulosin (tamsulosin 0.4 mg Cap) 1 Capsules Contact prescribing physician if questions or concerns Allergies No Known Allergies Problems Ongoing - Any problem that you are currently receiving treatment for. Asymptomatic microscopic hematuria Bilateral renal cysts BPH without urinary obstruction Epididymo-orchitis Family history of kidney stones History of kidney stones LLQ pain Pain in left testicle Ureteral stone with hydronephrosis Urinary urgency Historical - Any problem that you are no longer receiving treatment for. Asthma Depression DM - Diabetes mellitus Hyperlipidemia Hypertension Kidney stone Patient Survey You may receive a survey via text or e-mail asking about your office visit. Please share your experience with us by completing your survey. We appreciate your feedback and thank you for choosing us for your care. Education Materials Laser Therapy for Kidney Stones, Care After After laser therapy for kidney stones, it is common to have: ??? Pain. ??? A burning feeling when you pee (urinate). ??? Small amounts of blood in your pee (urine). ??? A need to pee a lot. ??? Parts of the kidney stone in your pee. ??? Mild discomfort in your back when you pee. You may have this if you had a small mesh tube (stent) placed during the procedure. Follow these instructions at home: Medicines ??? Take qnme-huf-mojauht and prescription medicines only as told by your health care provider. ??? If you were prescribed antibiotics, take them as told by your provider. Do not stop using the antibiotic even if you start to feel better. ??? Ask your provider if the medicine prescribed to you: ? Requires you to avoid driving or using machinery. ? Can cause constipation. You may need to take these actions to prevent or treat constipation: ? Drink enough fluid to keep your pee pale yellow. ? Take lzhb-def-qqguriw or prescription medicines. ? Eat foods that are high in fiber, such as beans, whole grains, and fresh fruits and vegetables. ? Limit foods that are high in fat and processed sugars, such as fried or sweet foods. Activity ??? If you were given a sedative during the procedure, it can affect you for several hours. Do not drive or operate machinery until your provider says that it is safe. ??? Return to your normal activities as told by your provider. Ask your provider what activities are safe for you. General instructions ??? Your provider may recommend that you drink a lot of water for a few hours after your procedure. If you have heart or kidney disease, ask your provider how much you should drink. ??? You may be asked to strain your pee to collect any (more content not included)... Normal [facility] Urology Office/Clinic Noteon 03-21-2024 Urology Office/Clinic Note Urology Office/Clinic Note Chief Complaint 8mm UVJ calculus HPI Staff New pt f/u from [facility] ED visit 03/12/24 for right flank pain. Ct done at that time showed an 8mm stone at the right UVJ and right hydroureter. Pt was transferred from [facility] to [facility] where urology was consulted. Last seen in our office by MINE 02/15/20. Dx: bilateral renal cysts, BPH without urinary obstruction, asymptomatic microhematuria and hx of kidney stones Dysuria: denies Incomplete bladder emptying: denies Hematuria: possible small blood in strainer Frequency: almost always Urgency: almost always Nocturia: 2x Stream: good steady Leaking: denies Post void dripping: denies Wearing pads/ Depends: denies Urge incontinence: denies Stress incontinence: denies Incontinence without Sensory Awareness: denies Abdominal pain: left sided Flank pain: denies Sexual complaints: denies History of Present Illness Tests reviewed: UA, ER records, CT, KUB I have reviewed the previous health record information and history for this patient from [facility]. I have reviewed and verified the staff HPI to be accurate for this encounter. Review of Systems PHQ Score Initial Depression Screen Score: 0 SCORE ROS - Provider Constitutional: denies weight loss, denies hot flashes. Eyes: denies eye problems. Gastrointestinal: denies nausea, denies vomiting. Cardiovascular: denies chest pain or angina. Integumentary: no dryness Musculoskeletal: denies musculoskeletal symptoms. ENMT: denies otolaryngeal symptoms. Respiratory: no shortness of breath. Heme/Lymph: denies easy bleeding tendency, denies easy bruising tendency. Psychiatric: no confusion, no anxiety. Genitourinary: See HPI. Physical Exam Vitals & Measurements T: 37 ???C(Temporal Artery) HR: 89(Peripheral) RR: 19 BP: 135/85 HT: 69 in HT: 175 cm WT: 73 kg WT: 160.937 lb BMI: 23.84 General Appearance: alert, no distress, well nourished, well developed male. Assessment/Plan Mimi Moe is a 73 yo male new pt following up to [facility] ER visit on 03/12/24 due to R flank pain. Pt was transferred from [facility] to [facility] where urology was consulted (no uro urgent care nurse practitioner at [facility]). Pt is diabetic. No BTs. IPSS 12. 1. Ureteral stone with hydronephrosis (N13.2: Hydronephrosis with renal and ureteral calculous obstruction) CT AP wo con 03/12/24 [facility] - Interval resolution of L sided distal ureteral stone with L hydroureter. Interval development of R sided hydroureter with an 8 mm stone now at the R UVJ. KUB 03/20/24 [facility] [place] Neg. UA neg. Reviewed imaging with pt. Tenderness on exam, evidence that pt has not passed stone. Explained since pt is diabetic, he is at increased risk with obstructing stone. No fever at time of [facility] visit per ER note. Last had pain 3 days ago. Took oxycodone, had some pain during the night. No pain since. Has been voiding through strainer. Has not noticed any stone passage. Offered to add on to surgery schedule tomorrow for cysto, URS, laser litho, basket, stent placement. Pt agreeable. Will schedule cysto, R URS, laser litho, basket, stent placement. The procedural risks, benefits, details, and treatment alternatives have been discussed with the patient. These include bleeding, infection, inability to break or retrieve all of the stone, injury to the ureter (the tube which connects the kidney to the bladder), injury to the kidney scarring of the ureter, and need for repeat procedures, among others. Full informed consent has been obtained. Will order General anesthesia. 2. History of kidney stones (Z87.442: Personal history of urinary calculi) Typically passes stones quickly on his own. Discussed metabolic workup including 24 hour urine and blood work for stone prevention. Pt interested. Remote association with stone formation with Lantus. Has only been on Lantus for 2 wks. Suspected metabolic disorder and not medication issue. Do not stop Lantus. -Complete metabolic workup once #1 resolved. Follow-up With When Contact Information NILAM VÁSQUEZ, Kian Rai, URL [facility] [address], [place] [address]- Additional Instructions: schedule cysto, R URS, laser litho, basket, stent placement Patient Education Laser Therapy for Kidney Stones, Care After Laser Therapy for Kidney Stones I, Mariah Osei, personally scribed for Dr. Dan on 03/21/2024 15:05:47. . Documentation recorded by the scribe, Mariah Osei, accurately reflects the services(s) I performed and decisions made by me. Authenticated by Dr. Dan on 03/21/2024 15:08:13. Problem List/Past Medical History Ongoing Asymptomatic microscopic hematuria Bilateral renal cysts BPH without urinary obstruction Epididymo-orchitis Family history of kidney stones History of kidney stones LLQ pain Pain in left testicle Ureteral stone with hydronephrosis Urinary urgency Historical Asthma Depression DM - Diabetes (more content not included)... Normal [facility] Comment on above: Result Comment: Elec tronically Signed By: Kian DAN MD R\.br\Date and Time Signed: 03/21/24 15:08 EST\.br\Electronically Co-Signed By: Mariah Osei P\.br\Date and Time Co-Signed: 03/21/24 15:06 EST XR Abdomen 1 Viewon 03-21-20 XR Abdomen 1 View Exam Date/Time: 03/20/2024 14:36 EST Reason for Exam: N20.0 Report IMPRESSION: NONSPECIFIC ABDOMEN. CLINICAL HISTORY: N20.0 COMPARISON: NONE. FINDINGS: Gas and stool in colon. No focal or diffuse small bowel dilatation. No mass effect. Phleboliths identified in right paramedian pelvic inlet. Osseous structures intact. Ordering Provider: Kian DAN FINAL REPORT Dictated: 03/21/2024 12:25 pm Leon Claros MD Signed (Electronic Signature): 03/21/2024 12:25 pm Signed by: Leon Claros MD Transcribed by: TRVAIS Technologist: SRF Technical Comments Radiation Dose: Ka,r in mGy = na DAP = na Normal [facility] Assessment AND Plan Noteon 1 05-16-2023 [employer] Authentication Interface Message Text Mar 2024 A1C 8.5 Metformin at home 24h gluc range 132-199 - Normal [facility] [employer] Authentication Interface Message Text 8-9 mm R renal stone per [facility] notes - history of kidney stones, he has always successfully passed them without intervention - no hydronephrosis or obstruction - getting images uploaded from count [email or web address] with [address] - no concern for uti at this time Plan: - urology consulted, fu recs - Pain control: tylenol - flomax 04mg daily Normal [facility] BASIC METABOLIC PANELon 12-1 Anion gap [Moles/Vol] 11 mmol/L Normal 10-20 [facility] Comment on above: Performed By: #### C H8, MG #### [facility] [address] [place] [address], Calcium [Mass/Vol] 8.9 mg/dL Normal 8.6-10.3 [facility] Comment on above: Performed By: #### C H8, MG #### [facility] [address] [place] [address], Chloride [Moles/Vol] 107 mmol/L Normal 98-107 [facility] Comment on above: Performed By: #### C H8, MG #### [facility] [address] [place] [address], CO2 [Moles/Vol] 27 mmol/L Normal 21-31 [facility] Comment on above: Performed By: #### C H8, MG #### [facility] [address] [place] [address], Creatinine [Mass/Vol] 0.86 mg/dL Normal 0.70-1.30 [facility] Comment on above: Performed By: #### C H8, MG #### [facility] [address] [place] [address], ESTIMATED GFR (CKD-EPI) 93 mL/min/1.73sqm Normal >=60 [facility] Comment on above: Result Comment: 2020 CKD EPI Equation using Creatinine without Race Comment: Estimated glomerular filtration rate (eGFR) is calculated without a race coefficient. Values should be interpreted in the context of the patient's full clinical presentation. Reference: 1. William Mccall, Valeriano M, Elina DC, et al.. A Unifying Approach for GFR Estimation: Recommendations of the NKF-ASN Task Force on Reassessing the Inclusion of Race in Diagnosing Kidney Disease. [place] Journal of Kidney Diseases 2021;79(2):268-88.e1. 2. N Engl J Med 2020 Vol. 385 Issue 19 Pages 7899-2952 Performed By: #### C H8, MG #### [facility] [address], [place], Glucose [Mass/Vol] 137 mg/dL High 74-109 [facility] Comment on above: Performed By: #### Cal H8, MG #### [facility] [address], [place], Potassium [Moles/Vol] 3.9 mmol/L Normal 3.5-5.0 [facility] Comment on above: Performed By: #### Cal H8, MG #### [facility] [address], [place], Sodium [Moles/Vol] 141 mmol/L Normal 136-145 [facility] Comment on above: Performed By: #### Cal H8, MG #### [facility] [address], [place], Urea nitrogen [Mass/Vol] 17 mg/dL Normal 7-25 [facility] Comment on above: Performed By: #### C H8, MG #### [facility] [address], [place], Basic metabolic 2000 panelon 03-15-2024 Anion gap [Moles/Vol] 11 mmol/L 10 - 20 [facility] Calcium [Mass/Vol] 8.9 mg/dL 8.6 - 10. 3 mg/dL [facility] Chloride [Moles/Vol] 107 mmol/L 98 - 10 7 mmol/L [facility] CO2 [Moles/Vol] 27 mmol/L 21 - 31 mmol/L [facility] Creatinine [Mass/Vol] 0.86 mg/dL 0.70 - 1.30 mg/dL [facility] GFR/1.73 sq M.predicted CKD-EPI (S/P/Bld) [Vol rate/Area] 93 - PINF [facility] Comment on above: 2020 CKD EPI Equatio n using Creatinine without Race Comment: Estimated glomerular filtration rate (eGFR) is calculated without a race coefficient. Values should be interpreted in the context of the patient's full clinical presentation. Reference: 1. William C, Valeriano M, Elina DC, et al.. A Unifying Approach for GFR Estimation: Recommendations of the NKF-ASN Task Force on Reassessing the Inclusion of Race in Diagnosing Kidney Disease. [place] Journal of Kidney Diseases 2021;79(2):268-88.e1. 2. N Engl J Med 1 Vol. 385 Issue 19 Pages 5560-4488 Glucose [Mass/Vol] 137 mg/dL High 74 - 109 mg/dL [facility] Potassium [Moles/Vol] 3.9 mmol/L 3.5 - 5.0 mmol/L [facility] Sodium [Moles/Vol] 141 mmol/L 136 - 145 mmol/L [facility] Urea nitrogen [Mass/Vol] 17 mg/dL 7 - 25 mg/dL [facility] CBC WITH DIFFERENTIALon 03-04 Basophils (Bld) [#/Vol] 0.07 10*3/uL 0.00 - 0.20 K/uL [facility] Basophils/100 WBC (Bld) 1.2 % NINF - 1.9 % [facility] Eosinophils (Bld) [#/Vol] 0.24 10*3/uL 0.00 - 0.70 K/uL [facility] Eosinophils/100 WBC (Bld) 4.3 % High 0.1 - 4.0 % [facility] Erythrocyte distribution width (RBC) [Ratio] 13.3 % 11.5 - 14.5 % [facility] Hematocrit (Bld) [Volume fraction] 35.9 % Low 41.0 - 53.0 % [facility] Hemoglobin (Bld) [Mass/Vol] 12.3 g/dL Low 13.9 - 16.3 g/dL [facility] Interpretation and review of laboratory results Abnormal [facility] Lymphocytes (Bld) [#/Vol] 1.43 10*3/uL 1.00 - 4.80 K/uL [facility] Lymphocytes/100 WBC (Bld) 25 % 24.0 - 44.0 % [facility] MCH (RBC) [Entitic mass] 29.6 pg 26.0 - 34.0 pg [facility] MCHC (RBC) [Mass/Vol] 34.3 g/dL 32.0 - 35.9 g/dL [facility] MCV (RBC) [Entitic vol] 86 fL 80 - 100 fL [facility] Monocytes (Bld) [#/Vol] 0.46 10*3/uL 0.20 - 1.00 K/uL [facility] Monocytes/100 WBC (Bld) 8.1 % 2.0 - 11.0 % [facility] Neutrophils (Bld) [#/Vol] 3.5 10*3/uL 1.50 - 8.00 K/uL [facility] Neutrophils/100 WBC (Bld) 61.4 % 31.0 - 76.0 % [facility] Platelet mean volume (Bld) [Entitic vol] 9.8 fL 7.5 - 11.2 fL [facility] Platelets (Bld) [#/Vol] 144 10*3/uL Low 150 - 400 K/uL [facility] RBC (Bld) [#/Vol] 4.17 10*6/uL Low [facility] WBC (Bld) [#/Vol] 5.7 10*3/uL 4.5 - 11.5 K/uL [facility] Basophils (Bld) [#/Vol] 0.07 10*3/uL Normal 0.00-0.20 [facility] Comment on above: Performed By: #### C BCDSAT ####[facility] PATHOLOGY [id number] [place] [address], Basophils/100 WBC (Bld) 1.2 % Normal <=1.9 T [facility] Comment on above: Performed By: #### C BCDSAT ####S PATHOLOGY [id number] [place], [place], Eosinophils (Bld) [#/Vol] 0.24 10*3/uL Normal 0.00-0.70 [facility] Comment on above: Performed By: #### C BCDSAT ####S PATHOLOGY [id number] [place] [address], Eosinophils/100 WBC (Bld) 4.3 % High 0.1-4.[address] Comment on above: Performed By: #### C BCDSAT ####S PATHOLOGY [id number] [place] [address], Erythrocyte distribution width (RBC) [Ratio] 13.3 % Normal 11.5-14.5 [facility] Comment on above: Performed By: #### C BRIDSAT ####[facility] PATHOLOGY [id number] [place], [place], Hematocrit (Bld) [Volume fraction] 35.9 % Low 41.0-53.0 [facility] Comment on above: Performed By: #### C TISHAT ####[facility] PATHOLOGY [id number] [place] [address], Hemoglobin (Bld) [Mass/Vol] 12.3 g/dL Low 13.9-16.3 [facility] Comment on above: Performed By: #### C TISHAT ####[facility] PATHOLOGY [id number] [place] [address], Lymphocytes (Bld) [#/Vol] 1.43 10*3/uL Normal 1.00-4.[address] [facility] Comment on above: Performed By: #### C TISHAT ####[facility] PATHOLOGY [id number] [place] [address], Lymphocytes/100 WBC (Bld) 25.0 % Normal 24.0-44.0 [facility] Comment on above: Performed By: #### C TISHAT ####[facility] PATHOLOGY [id number] [place], [place], MCH (RBC) [Entitic mass] 29.6 pg Normal 26.0-34.[address] [facility] Comment on above: Performed By: #### C BCHERMILOAT ####[facility] PATHOLOGY [id number] [place] [address], MCHC (RBC) [Mass/Vol] 34.3 g/dL Normal 32.0-35.[address] [facility] Comment on above: Performed By: #### C BCDSAT ####[facility] PATHOLOGY [id number] [place], [place], MCV (RBC) [Entitic vol] 86 fL Normal 80-100 T [facility] Comment on above: Performed By: #### C BRIDSAT ####S PATHOLOGY [id number] [place], [place], Monocytes (Bld) [#/Vol] 0.46 10*3/uL Normal 0.20-1.00 [facility] Comment on above: Performed By: #### C BCDSAT ####[facility] PATHOLOGY [id number] [place], [place], Monocytes/100 WBC (Bld) 8.1 % Normal 2.0-11.0 [facility] Comment on above: Performed By: #### C BCDSAT ####[facility] PATHOLOGY [id number] [place], [place], Neutrophils (Bld) [#/Vol] 3.50 10*3/uL Normal 1.50-8.[address] [facility] Comment on above: Performed By: #### C BCDSAT ####[facility] PATHOLOGY [id number] [place], [place], Neutrophils/100 WBC (Bld) 61.4 % Normal 31.0-76.[address] [facility] Comment on above: Performed By: #### C BCDSAT ####[facility] PATHOLOGY [id number] [place], [place], Platelet mean volume (Bld) [Entitic vol] 9.8 fL Normal 7.5-11.[address] [facility] Comment on above: Performed By: #### C BCDSAT ####[facility] PATHOLOGY [id number] [place], [place], Platelets (Bld) [#/Vol] 144 10*3/uL Low 150-400 The [facility] Comment on above: Performed By: #### C BCDSAT ####[facility] PATHOLOGY [id number] [place], [place], RBC (Bld) [#/Vol] 4.17 10*6/uL Low 4.50-5.[address] [facility] Comment on above: Performed By: #### C BCDSAT ####[facility] PATHOLOGY [id number] [place], [place], WBC (Bld) [#/Vol] 5.7 10*3/uL Normal 4.5-11.5 [facility] Comment on above: Performed By: #### C BCDSAT ####[facility] [id number] [place], [id number] [employer] 03-15-2024 [employer] Authentication Interface Message Text Department of Urology CONSULT NOTE Referring Physician: Gabriele Morin MD Chief Complaint/Reason for Consultation R distal ureteral stone HPI Mimi Mcbride is a 73 year old male with history of nephrolithiasis, DM, HTN, presenting as a transfer from [facility] with R distal ureteral stone. Patient states that he has had intermittent R flank pain since Tuesday. Seen at [facility], discharged with pain medications. On my review, CT shows a 8-9 mm stone at the R UVJ with mild upstream hydronephrosis. Denies hematuria, urgency, frequency. Urinating without issue. Afebrile and HDS. No leukocytosis and no DARREN (WBC 5.6, Cr 0.86). UA at [facility] negative for infection. The patient currently feels well. Denies N/V. He is not in any pain. The patient states that he passed a 7 mm stone on the LEFT 3-4 years ago. Has never had to have a stone treated. Admits that he does not typically drink much water. No past medical history on file. No past surgical history on file. Social History Socioeconomic History Marital status: Social Drivers of Health Food Insecurity: Unknown (03/14/2024) Hunger Vital Sign Worried About Running Out of Food in the Last Year: Never true Transportation Needs: Unknown (03/14/2024) PRAPARE - Transportation Lack of Transportation (Medical): No Intimate Partner Violence: Unknown (03/14/2024) Humiliation, Afraid, Rape, and Kick questionnaire Emotionally Abused: No No family history on file. Allergies: Patient has no known allergies. Review of Systems: Denies N/V, fever, chills Denies hematuria, dysuria, urgency, frequency Denies abdominal pain PHYSICAL EXAMINATION BP 167/90 (BP Location: right arm) Pulse 61 Temp 97.3 ???F (36.3 ???C) (Temporal) Resp 18 Ht 5' 9 (1.753 m) Wt 162 lb 4.8 oz (73.6 kg) SpO2 98% BMI 23.97 kg/m??? Vital sign ranges over the past 24 hours (retrieved 03/15/2024 at 9:15 AM): Tmax (24 hours): 97.7 ???F (36.5 ???C) Pulse Av.8 Min: 61 Max: 73 Systolic (24hrs), Av , Min:143 , Max:170 Diastolic (24hrs), Av, Min:75, Max:93 MAP (mmHg) Av.3 mmHg Min: 91 mmHg Max: 113 mmHg Resp Av Min: 18 Max: 18 SpO2 Av.5 % Min: 97 % Max: 100 % General Appearance: Alert, NAD, well developed Skin: No rashes, warm and dry HEENT: Atraumatic, EOMI, no oral lesions, MM moist Neck: No lesions, supple Cardiovascular: RRR Lungs: nonlabored, no audible wheezing Breast/Chest: No chest wall deformities or tenderness Abdomen: Soft, nondistended, no guarding, nontender. No CVA tenderness. Genitourinary: Voids spontaneously MSK: Normal tone, moves all extremities Neurologic: Ox3, appropriate, follows commands Labs CBC (last 3 years, up to 8 values) 03/15/2024 3:22 AM WBC 5.7 RBC 4.17 Hgb 12.3 Hct 35.9 MCV 86 RDW 13.3 Plt 144 BMP (last 3 years, up to 8 values) 03/15/2024 3:22 AM Na 141 K 3.9 Cl 107 CO2 27 Gap 11 Glu 137 BUN 17 Cr 0.86 Ca 8.9 eGFR 93 Imaging CTAP from [facility] 03/12/24 (read only) IMPRESSION: There has been interval development of right-sided hydroureter with an 8 mm stone now at the right ureterovesical junction. There is interval resolution of the left-sided distal ureteral stone with left-sided hydroureter. Impression: Mimi Mcbride is a 73 year old male with history of nephrolithiasis, DM, HTN, presenting as a transfer from [facility] with 8 mm R distal ureteral stone. Afebrile and HDS. No leukocytosis and no DARREN (WBC 5.6, Cr 0.86). UA negative for infection. The patient currently feels well, pain is well controlled. Denies N/V. He is not in any pain. Recommendations: - No acute urologic intervention - ok for diet - Patient can be discharged if pain is controlled - We will arrange follow up here at [facility] to discuss stone treatment. Alternatively, the patient can elect to follow up in [place], in which case, he should call to cancel the appointment at [facility]. Please page if the patient's clinical status changes. If the patient's pain cannot be adequately controlled with medications, he may require interval stent placement. Coretta Marcos MD PhD Urologic Surgery PGY-5 Service Pager: [phone] Normal [facility] GLUCOSE, FINGERSTICK-IN OFFI CEon 03-15-2024 Glucose [Mass/Vol] 199 mg/dL High 74 - 109 mg/dL [facility] Comment on above: Notified CORINA KATHLEEN MD Interpretation and review of laboratory results Abnormal [facility] Glucose [Mass/Vol] 132 mg/dL High 74 - 109 mg/dL [facility] Interpretation and review of laboratory results Abnormal [facility] Glucose [Mass/Vol] 132 mg/dL High 74-109 [facility] Comment on above: Performed By: #### 8 [id number] ####[facility] GLUCOSE [id number] [place], [address] H AND [facility] 03-15-2024 [employer] Authentication Interface Message Text Attestation signed by Gabriele Morin MD at 03/15/2024 12:28 PM Teaching Physician Note: I saw and evaluated the patient. I personally obtained the jacinto and critical portions of the history and physical exam. I reviewed the resident's documentation and discussed the patient with the resident. I agree with the resident's medical decision making as documented in the resident's note. Patient admitted from [facility] for nephrolithiasis and urology consult. He has hx of kidney stones in the past but has been able to pass them. This time he was admitted with 9mm stone and was treated for UTI with 5 days of ceftriaxone. He has no renal dysfunction Hospital Problems as of 03/15/2024 * (Principal) Nephrolithiasis Type 2 diabetes mellitus without complication, without long-term current use of insulin (HCC) Sensorineural hearing loss, bilateral Additional Impression, Assessment and Plan Patient evaluated at bedside. Doing well Seen by Urology who recommended OP follow up as they think stone passed to bladder due to resolution of pain Patient's family frustrated as they had to drive all the way from [place] Patient will be discharged with flomax and as needed pain control He is to follow up with Urology here Rest of the plan per residents note I spent greater than 75 minutes with more than 50% of time in direct patient care. Gabriele Story MD [facility] Internal Medicine: H AND P Note Patient: Mimi Mcbride : 1950 Sex: male Room: [place] [id number] Admit Date: 03/14/2024 Today's Date: 03/15/2024 Length of stay: 1 day(s) HISTORY OF PRESENT ILLNESS: CHIEF COMPLAINT: No chief complaint on file. Mimi Mcbride is a 73 year old male admitted on 03/14/2024 with a PMH of diabetes, HTN, HLD, hx of kidney stones presenting with concern of nephrolithiasis. At bedside, he says since last Tuesday he has had intermittent right flank pain. First went to [facility] for this pain, informed he had 9mm kidney stone got discharged with meds but was tolerating pain ok and then a few days later the right sided flank pain worsened. Represented to [facility] for this pain. Urinating fine. No hematuria. Tolerating PO fine. No nausea, vomiting. No fevers, chills. Active at home, runs 1 mile everyday when not sick. Has had kidney stones before but always able to pass them in 1 day or so. Transferred from [facility] after starting on ceftriaxone to see urology. Per paper chart, patient was actively vomiting during exam. No alcohol, tobacco or other drug use. - VS: Vitals: 03/14/24 2256 BP: 170/78 Pulse: 64 Resp: 18 Temp: 97.6 ???F (36.4 ???C) SpO2: 100% - Labs: *pending* - Imaging: no access [facility] paper chart: Right sided hydroureter with 8mm stone at right ureterovercal junction - Interventions: keflex, flomax, percocet, zofran, transferred here for urology, started on ceftriaxone ROS: As noted in HPI MEDICAL HISTORY: PMH: see hpi PSH: non contributory Outpatient meds: insulin, glyburide, statin, lisinopril-hydrochlor othiazide Social: see above Objective OBJECTIVE: Temperature: [97.6 ???F (36.4 ???C)-97.7 ???F (36.5 ???C)] 97.6 ???F (36.4 ???C) Heart Rate: [64-73] 64 Respiratory Rate: [18] 18 BP: (163-170)/(78-93) 170/78 I/Os: No intake or output data in the 24 hours ending 03/15/24 0207 LABS: CBC: (None found w/in last 24 hrs) WBC N/A Hgb N/A / Plt N/A / Hct N/A BMP: (None found w/in last 24 hrs) N/A N/A N/A Gluc N/A N/A N/A N/A Mg PO4 Ca N/A N/A N/A (1.6-2.8) (2.5-4.8) (8.4-10) PHYSICAL EXAM: General: NAD. Comfortable appearing in bed. Hard of hearing. Appears younger than stated age. Heart: RRR. No murmurs or rub. Lungs: CTAB. Abdomen: Soft. Non-tender. Slightly distended. No CVA tenderness on either side. Extremities: No LE edema. Neuro: No focal deficits. A AND Ox3 Skin: Warm AND dry. Active Meds: tamsulosin 0.4 mg Daily insulin regular 2-12 Units Every 6 hours Heparin Sodium (Porcine) PF 5,000 Units 2x Daily --- IMAGING ---- No Chest x-ray found Echocardiogram date: Not Found CONSULTS: None ASSESSMENT AND PLAN: SUMMARY: Mimi Mcbride is a 73 year old male presenting with concern of nephrolithiasis. PROBLEM LIST: #Nephrolithiasis - 8-9 mm R renal stone per [facility] notes - history of kidney stones, he has always successfully passed them without intervention - no hydronephrosis - getting images uploaded from [facility] with Pro[facility] - no concern for uti at this time, will stop antibiotics and await urology input Plan - urology consulted, fu recs. They need images - Pain control: tylenol for now - NPO for now (more content not included)... Normal [facility] MAGNESIUMon 03-15-2024 Magnesium [Mass/Vol] 1.6 mg/dL Low 1.9 - 2 .7 mg/dL [facility] Magnesium [Mass/Vol] 1.6 mg/dL Low 1.9-2.7 [facility] Comment on above: Performed By: #### C H8, MG #### [facility] [address] [place] [address], [id number] No Panel Informationon 03-15 Interpretation and review of laboratory results [facility]normal [facility] Noteson 03-15-2024 [employer] Authentication Interface Message Text SW/CM has reviewed patient's chart and assessed that there are no discharge planning needs at this time. The following was reviewed to determine no SW/CM needs warranted. 1). PT/OT evaluations indicate pt can DC home with no needs or PT/OT evaluations are not warranted. 2). No wound care or IV Antibiotics indicated at this time. 3). No SW/CM consults placed through nursing admission screen 4). Pt does not meet the criteria of being a Medicare recipient that has a high or rising readmission rate. Patient will continue to be discussed in multi-disciplinary rounds and monitored daily. If any of the the above changes, SW/CM will complete appropriate assessments and interventions. Delfin JASSO, RN, CM Care Coordination department secure epic chat Normal [facility] Basic Metabolic Panelon 12- Anion gap [Moles/Vol] 8.7 mmol/L Normal 6.0-15.0 The [facility] Comment on above: Performed By: #### A DDONUAPLUS #### [place] [address] [place] Calcium [Mass/Vol] 8.5 mg/dL Low 8.6-10.3 The [facility] Comment on above: Performed By: #### A DDONUAPLUS #### [place] [address] [place] Chloride [Moles/Vol] 108 mmol/L High 98-107 The [facility] Comment on above: Performed By: #### A DDONUAPLUS #### [place] [address] [place] CO2 [Moles/Vol] 27.1 mmol/L Normal 21.0-31.0 The [facility] Comment on above: Performed By: #### A DDONUAPLUS #### [place] [address] [place] Creatinine [Mass/Vol] 0.83 mg/dL Normal 0.70-1.30 The [facility] Comment on above: Performed By: #### A DDONUAPLUS #### [place] [address] [place] Creatinine Clr Calc Pharmacy 81.63 Normal The [facility] Comment on above: Result Comment: PERF ORMED BY: [place] [address] PATHOLOGIST COLORER MACHINE MELISSA NUGENT M.D. Performed By: #### A DDONUAPLUS #### [place] [address] [place] GFR/1.73 sq M.predicted MDRD (S/P/Bld) [Vol rate/Area] mL/min/{1.73_m2} Normal The [facility] Comment on above: Performed By: #### A DDONUAPLUS #### [address] Glucose [Mass/Vol] 139 mg/dL High 70-100 The [facility] Comment on above: Result Comment: [facility] Glucose Reference Range is dependent on time and content of last meal. Glucose of more than 200 mg/dL in a nonstressed, ambulatory subject supports the diagnosis of Diabetes Mellitus. ADA recommended reference range Performed By: #### A DDONUAPLUS #### [address] Potassium [Moles/Vol] 3.8 mmol/L Normal 3.5-5.1 The [facility] Comment on above: Performed By: #### A DDONUAPLUS #### [address] Sodium [Moles/Vol] 140 mmol/L Normal 136-145 The [facility] Comment on above: Performed By: #### A DDONUAPLUS #### [address] Urea nitrogen [Mass/Vol] 16 mg/dL Normal 7-25 The [facility] Comment on above: Performed By: #### A DDONUAPLUS #### [address] Care Plan Noteon 03-14-2024 [employer] Authentication Interface Message Text [facility] Internal Medicine: Intermediate Plan Note Patient: Mimi Mcbride : 1950 Sex: male Admit Date: 03/14/2024 Length of stay: 1 day(s) No chief complaint on file. SUBJECTIVE: Mimi Mcbride is a 73 year old male admitted on 03/14/2024 for non-obstructing kidney stone with a PMH of HTN, HLD. Patient notes has history of kidney stones. Seen at hospital for pain related to kidney stone, however pain resolved and did not take medication he was prescribed out on. Pain began sudden and intense, re-presented to another outside hospital. OBJECTIVE: BP 170/78 (BP Location: right arm) Pulse 64 Temp 97.6 ???F (36.4 ???C) (Temporal) Resp 18 Ht 5' 9 (1.753 m) Wt 162 lb 4.8 oz (73.6 kg) SpO2 100% BMI 23.97 kg/m??? Pertinent Physical Exam Findings: Gen: Alert and oriented, in no apparent distress HEENT: Conjunctivae noninjected, neck supple, head NCAT Lungs: Comfortably oxygenating on RA Abd: Soft, NT, ND Ext: warm, no edema Skin: No rashes, no lesions Neuro: A/OX3, no focal deficits Pertinent Lab Findings: Cr 0.86 ASSESSMENT AND PLAN: #Nephrolithiasis - 9 mm stone, transferred from OSH for urology -pain managed with morphine at outside hospital -patient without pain on exam, producing urine Plan: -urology consult -monitor urine output -NPO -start pain management with oxy and tylenol, advance as needed Code Status: Full Code Remainder of plan per medical intern note. Hollie Dyer, DO Internal Medicine PGY-2 Normal [facility] GLUCOSE, FINGERSTICK-IN OFFI CEon 03-14-2024 Glucose [Mass/Vol] 199 mg/dL High 74-109 [facility] Comment on above: Result Comment: Alan frost RN, APN, MD Performed By: #### 8 2948 #### NURSING GLUCOSE PROGRAM [address] [place] [address], [id number] Glucose Poct Glucometerson 1 05-15-2023 Commemt1 Glu2: Cleaned Meter Normal The [facility] Comment on above: Result Comment: PERF ORMED BY: [place] [address] PATHOLOGIST COLORER MACHINE MELISSA NUGENT M.D. Performed By: #### B MP, CBC, LIPASE, HEPATIC #### [address] Glucose [Mass/Vol] 184 mg/dL Normal The [facility] Comment on above: Result Comment: [place] Glucose Reference Range is dependent on time and content of last meal. Glucose of more than 200 mg/dL in a nonstressed, ambulatory subject supports the diagnosis of Diabetes Mellitus. Performed By: #### B MP, CBC, LIPASE, HEPATIC #### [facility] [address] Commemt1 Glu2: Cleaned Meter Normal [facility] Comment on above: Result Comment: PERF ORMED BY: [place] [address] PATHOLOGIST COLORER MACHINE MELISSA NUGENT M.D. Performed By: #### B MP, CBC, LIPASE, HEPATIC #### [facility] [address] Glucose [Mass/Vol] 175 mg/dL Normal The [facility] Comment on above: Result Comment: [place] om Glucose Reference Range is dependent on time and content of last meal. Glucose of more than 200 mg/dL in a nonstressed, ambulatory subject supports the diagnosis of Diabetes Mellitus. Performed By: #### B MP, CBC, LIPASE, HEPATIC #### [address] Glucose [Mass/Vol] 131 mg/dL Normal The [facility] Comment on above: Result Comment: [place] [facility] Glucose Reference Range is dependent on time and content of last meal. Glucose of more than 200 mg/dL in a nonstressed, ambulatory subject supports the diagnosis of Diabetes Mellitus. PERFORMED BY: [place] [address] PATHOLOGIST COLORER MACHINE MELISSA NUGENT M.D. Performed By: #### B MP, CBC, LIPASE, HEPATIC #### [place] [id number] [facility] Basic Metabolic Panelon 12-1 0-2023 Anion gap [Moles/Vol] 8.5 mmol/L Normal 6.0-15.0 The [facility] Comment on above: Performed By: #### B MP, CBC, LIPASE, HEPATIC #### [facility] [address] [place] [id number] [facility] Calcium [Mass/Vol] 8.4 mg/dL Low 8.6-10.3 The [facility] Comment on above: Performed By: #### B MP, CBC, LIPASE, HEPATIC #### [facility] [address] Chloride [Moles/Vol] 110 mmol/L High 98-107 The [facility] Comment on above: Performed By: #### B MP, CBC, LIPASE, HEPATIC #### [facility] [address] CO2 [Moles/Vol] 27.4 mmol/L Normal 21.0-31.0 The [facility] Comment on above: Performed By: #### B MP, CBC, LIPASE, HEPATIC #### [facility] [address] Creatinine [Mass/Vol] 0.92 mg/dL Significan t change down 0.70-1.30 The [facility] Comment on above: Performed By: #### B MP, CBC, LIPASE, HEPATIC #### [facility] [address] Creatinine Clr Calc Pharmacy 73.65 Normal The [facility] Comment on above: Result Comment: PERF ORMED BY: [place] [address] PATHOLOGIST COLORER MACHINE MELISSA NUGENT M.D. Performed By: #### B MP, CBC, LIPASE, HEPATIC #### [facility] [address] GFR/1.73 sq M.predicted MDRD (S/P/Bld) [Vol rate/Area] mL/min/{1.73_m2} Normal The [facility] Comment on above: Performed By: #### B MP, CBC, LIPASE, HEPATIC #### [facility] [address] Glucose [Mass/Vol] 155 mg/dL High 70-100 The [facility] Comment on above: Result Comment: [place] Glucose Reference Range is dependent on time and content of last meal. Glucose of more than 200 mg/dL in a nonstressed, ambulatory subject supports the diagnosis of Diabetes Mellitus. ADA recommended reference range Performed By: #### B MP, CBC, LIPASE, HEPATIC #### [address] Potassium [Moles/Vol] 3.9 mmol/L Normal 3.5-5.1 [facility] Comment on above: Performed By: #### B MP, CBC, LIPASE, HEPATIC #### [address] Sodium [Moles/Vol] 142 mmol/L Normal 136-145 The [facility] Comment on above: Performed By: #### B MP, CBC, LIPASE, HEPATIC #### [address] Urea nitrogen [Mass/Vol] 18 mg/dL Normal 7-25 [facility] Comment on above: Performed By: #### B MP, CBC, LIPASE, HEPATIC #### [address] Complete Blood Count Auto Di ffon 03-13-2024 Basophils (Bld) [#/Vol] 0.1 10*3/uL Normal 0.0-0.2 The [facility] Comment on above: Result Comment: PERF ORMED BY: [place] [address] PATHOLOGIST COLORER MACHINE MELISSA NUGENT M.D. Performed By: #### B MP, CBC, LIPASE, HEPATIC #### [address] Basophils/100 WBC (Bld) 0.8 % Normal . T eileen [facility] Comment on above: Performed By: #### B MP, CBC, LIPASE, HEPATIC #### [address] Eosinophils (Bld) [#/Vol] 0.2 10*3/uL Normal 0.0-0.45 The [facility] Comment on above: Performed By: #### B MP, CBC, LIPASE, HEPATIC #### [address] Eosinophils/100 WBC (Bld) 2.9 % Normal . [facility] Comment on above: Performed By: #### B MP, CBC, LIPASE, HEPATIC #### [address] Erythrocyte distribution width (RBC) [Ratio] 13.4 % Normal 12.0-14.8 The [facility] Comment on above: Performed By: #### B MP, CBC, LIPASE, HEPATIC #### [address] Hematocrit (Bld) [Volume fraction] 35.2 % Low 38.8-50.0 The [facility] Comment on above: Performed By: #### B MP, CBC, LIPASE, HEPATIC #### [address] Hemoglobin (Bld) [Mass/Vol] 12.1 g/dL Low 13.0-17.0 The [facility] Comment on above: Performed By: #### B MP, CBC, LIPASE, HEPATIC #### [address] Lymphocytes (Bld) [#/Vol] 1.1 10*3/uL Normal 1.00-4.8 The [facility] Comment on above: Performed By: #### B MP, CBC, LIPASE, HEPATIC #### [address] Lymphocytes/100 WBC (Bld) 15.0 % Normal . [facility] Comment on above: Performed By: #### B MP, CBC, LIPASE, HEPATIC #### [address] MCH (RBC) [Entitic mass] 29.5 pg Normal 27.5-35.2 The [facility] Comment on above: Performed By: #### B MP, CBC, LIPASE, HEPATIC #### [address] MCV (RBC) [Entitic vol] 86.1 fL Normal 83.5-101 T he [facility] Comment on above: Performed By: #### B MP, CBC, LIPASE, HEPATIC #### [address] Mean Corpuscular HGB Conc 34.3 g/dL Normal 32.5-35.6 The [facility] Comment on above: Performed By: #### B MP, CBC, LIPASE, HEPATIC #### [address] Monocytes (Bld) [#/Vol] 0.5 10*3/uL Normal 0.0-0.8 The [facility] Comment on above: Performed By: #### B MP, CBC, LIPASE, HEPATIC #### [address] Monocytes/100 WBC (Bld) 7.5 % Normal . T he [facility] Comment on above: Performed By: #### B MP, CBC, LIPASE, HEPATIC #### [address] Neutrophils (Bld) [#/Vol] 5.2 10*3/uL Normal 1.8-7.7 The [facility] Comment on above: Performed By: #### B MP, CBC, LIPASE, HEPATIC #### [address] Neutrophils/100 WBC (Bld) 73.8 % Normal . The [facility] Comment on above: Performed By: #### B MP, CBC, LIPASE, HEPATIC #### [address] NRBC% 0.2 /100{WBC} Normal 0-0.5 The [facility] Comment on above: Performed By: #### B MP, CBC, LIPASE, HEPATIC #### [address] Platelet mean volume (Bld) [Entitic vol] 10.7 fL High 6.6-10.1 The [facility] Comment on above: Performed By: #### B MP, CBC, LIPASE, HEPATIC #### [address] Platelets (Bld) [#/Vol] 125 10*3/uL Signific ant change down 150-450 The [facility] Comment on above: Performed By: #### B MP, CBC, LIPASE, HEPATIC #### [facility] [address] RBC (Bld) [#/Vol] 4.09 10*6/uL Normal 3.90-5.60 The [facility] Comment on above: Performed By: #### B MP, CBC, LIPASE, HEPATIC #### [facility] [address] WBC (Bld) [#/Vol] 7.0 10*3/uL Normal 4.1-10.5 The [facility] Comment on above: Performed By: #### B MP, CBC, LIPASE, HEPATIC #### [address] Glucose Poct Glucometerson 1 05-14-2023 Glucose [Mass/Vol] 155 mg/dL Normal The [facility] Comment on above: Result Comment: [place] Glucose Reference Range is dependent on time and content of last meal. Glucose of more than 200 mg/dL in a nonstressed, ambulatory subject supports the diagnosis of Diabetes Mellitus. PERFORMED BY: [place] [address] PATHOLOGIST COLORER MACHINE MELISSA NUGENT M.D. Performed By: #### A DDONUAPLUS #### [address] Commemt1 Glu2: Cleaned Meter Normal The [facility] Comment on above: Result Comment: PERF ORMED BY: [place] [address] PATHOLOGIST COLORER MACHINE MELISSA NUGENT M.D. Performed By: #### B MP, CBC, LIPASE, HEPATIC #### [address] Glucose [Mass/Vol] 110 mg/dL Normal The [facility] Comment on above: Result Comment: [place] [facility] Glucose Reference Range is dependent on time and content of last meal. Glucose of more than 200 mg/dL in a nonstressed, ambulatory subject supports the diagnosis of Diabetes Mellitus. Performed By: #### B MP, CBC, LIPASE, HEPATIC #### [address] Glucose [Mass/Vol] 130 mg/dL Normal The [facility] Comment on above: Result Comment: [place] [facility] Glucose Reference Range is dependent on time and content of last meal. Glucose of more than 200 mg/dL in a nonstressed, ambulatory subject supports the diagnosis of Diabetes Mellitus. PERFORMED BY: [place] [address] PATHOLOGIST COLORER MACHINE MELISSA NUGENT M.D. Performed By: #### B MP, CBC, LIPASE, HEPATIC #### [address] Glucose [Mass/Vol] 169 mg/dL Normal The [facility] Comment on above: Result Comment: [place] [facility] Glucose Reference Range is dependent on time and content of last meal. Glucose of more than 200 mg/dL in a nonstressed, ambulatory subject supports the diagnosis of Diabetes Mellitus. PERFORMED BY: [place] [address] PATHOLOGIST COLORER MACHINE MELISSA NUGENT M.D. Performed By: #### B MP, CBC, LIPASE, HEPATIC #### [address] Commemt1 Glu2: Cleaned Meter Normal The [facility] Comment on above: Result Comment: PERF ORMED BY: [place] [address] PATHOLOGIST COLORER MACHINE MELISSA NUGENT M.D. Performed By: #### B MP, CBC, LIPASE, HEPATIC #### [address] Glucose [Mass/Vol] 238 mg/dL Normal The [facility] Comment on above: Result Comment: [place] [facility] Glucose Reference Range is dependent on time and content of last meal. Glucose of more than 200 mg/dL in a nonstressed, ambulatory subject supports the diagnosis of Diabetes Mellitus. Performed By: #### B MP, CBC, LIPASE, HEPATIC #### [address] Commemt1 Glu2: Cleaned Meter Normal The [facility] Comment on above: Result Comment: PERF ORMED BY: [place] [address] PATHOLOGIST COLORER MACHINE MELISSA NUGENT M.D. Performed By: #### B MP, CBC, LIPASE, HEPATIC #### [address] Glucose [Mass/Vol] 154 mg/dL Normal [facility] Comment on above: Result Comment: [facility] Glucose Reference Range is dependent on time and content of last meal. Glucose of more than 200 mg/dL in a nonstressed, ambulatory subject supports the diagnosis of Diabetes Mellitus. Performed By: #### B MP, CBC, LIPASE, HEPATIC #### [address] Basic Metabolic Panelon 12-0 Anion gap [Moles/Vol] 14.6 mmol/L Normal 6.0-15.0 [facility] Comment on above: Performed By: #### B MP, CBC, LIPASE, HEPATIC #### [address] Calcium [Mass/Vol] 9.7 mg/dL Normal 8.6-10.3 The [facility] Comment on above: Performed By: #### B MP, CBC, LIPASE, HEPATIC #### [address] Chloride [Moles/Vol] 102 mmol/L Normal 98-107 The [facility] Comment on above: Performed By: #### B MP, CBC, LIPASE, HEPATIC #### [address] CO2 [Moles/Vol] 26.0 mmol/L Normal 21.0-31.0 The [facility] Comment on above: Performed By: #### B MP, CBC, LIPASE, HEPATIC #### [address] Creatinine [Mass/Vol] 1.62 mg/dL High 0.70-1.30 The [facility] Comment on above: Performed By: #### B MP, CBC, LIPASE, HEPATIC #### [address] Creatinine Clr Calc Pharmacy 41.82 Normal The [facility] Comment on above: Performed By: #### B MP, CBC, LIPASE, HEPATIC #### [address] Estimated GFR 45.102 mL/Min Normal The [facility] Comment on above: Performed By: #### B MP, CBC, LIPASE, HEPATIC #### [address] Glucose [Mass/Vol] 246 mg/dL High 70-100 The [facility] Comment on above: Result Comment: [facility] Glucose Reference Range is dependent on time and content of last meal. Glucose of more than 200 mg/dL in a nonstressed, ambulatory subject supports the diagnosis of Diabetes Mellitus. ADA recommended reference range Performed By: #### B MP, CBC, LIPASE, HEPATIC #### [address] Potassium [Moles/Vol] 3.6 mmol/L Normal 3.5-5.1 The [facility] Comment on above: Performed By: #### B MP, CBC, LIPASE, HEPATIC #### [address] Sodium [Moles/Vol] 139 mmol/L Normal 136-145 The [facility] Comment on above: Performed By: #### B MP, CBC, LIPASE, HEPATIC #### [address] Urea nitrogen [Mass/Vol] 32 mg/dL High 7-25 [facility] Comment on above: Performed By: #### B MP, CBC, LIPASE, HEPATIC #### [address] Blood Cultureon 03-12-2024 Bacteria identified Cx Nom (Bld) NO GROWTH 5 DAYS PERFORMED BY: [place] [address] PATHOLOGIST COLORER MACHINE MELISSA NUGENT M.D. Normal The [facility] Comment on above: Performed By: #### A DDONUAPLUS #### [address] Bacteria identified Cx Nom (Bld) NO GROWTH 5 DAYS PERFORMED BY: [place] [address] PATHOLOGIST COLORER MACHINE MELISSA NUGENT M.D. Normal The [facility] Comment on above: Performed By: #### A DDONUAPLUS #### [address] abdomen pelvis w conon CT abdomen pelvis w con [facility] [place] [address] [place] [address] CT Scan Report Signed Patient: Mimi Mcbride JR MR#: [id number] : 1950 Acct:[id number] Age/Sex: 73 / M ADM Date: 03/12/24 Loc: ER Room: Type: [facility] ER Attending Dr: Copies to: Leandra Castro MD Ordering Provider: Leandra Castro MD Date of Service: 03/12/24 CT/CT abdomen pelvis w con: constipated, r/o sbo, hx recent stone 9mm on R CT abdomen pelvis w con 03/12/2024 9:18 AM SIGNS AND SYMPTOMS: Worsening right flank pain, renal stones TECHNIQUE: Multidetector ct axial images of the abdomen and pelvis were obtained with IV contrast. Multiplanar reformats were performed and reviewed to further define anatomy and possible pathology. CT was performed with one or more of the following dose reduction techniques: Automated exposure control, adjustment of the mA and/or kV according to patient size, or use of iterative reconstruction technique. COMPARISON: 03/09/2020 FINDINGS: Lower Chest: Atherosclerotic changes are noted in the thoracic aorta and coronary arteries. Dependent atelectasis is noted in the lung bases. ABDOMEN: Liver: There is a 1.9 cm hypoattenuating focus in the right hepatic lobe. Additional smaller foci of hypoattenuation are noted in the right and left hepatic lobes. These are unchanged when compared to the prior exam and may represent small cysts or hemangiomas. Bile Ducts: Normal caliber. Gallbladder: No calcified gallstones. Normal caliber wall. Pancreas: Within normal limits. Spleen: Within normal limits. Adrenals: Within normal limits. Kidneys: There is right-sided hydronephrosis. There is right-sided perinephric fat stranding. There has been interval resolution of the larger stone at the inferior pole of the right renal collecting system. Simple cysts are noted in the left renal cortex requiring no further follow-up. Pelvis: Reproductive Organs: No pelvic masses. Ureters: There is interval resolution of the left-sided distal ureteral stone with left-sided hydroureter. There has been interval development of right-sided hydroureter with an 8 mm stone now at the right ureterovesical junction. Bladder: Within normal limits. Bowel: Normal caliber. There are uncomplicated colonic diverticula. Mesenteric Lymph Nodes: No enlarged mesenteric lymph nodes. Peritoneum: There is a small amount of free fluid pelvis which reactive. Vessels: Atherosclerotic changes are noted in the abdominal aorta and its branches. Retroperitoneum: Within normal limits. Abdominal Wall: Within normal limits. Bones: Degenerative changes are noted in the thoracolumbar spine and sacroiliac joints. CT/CT abdomen pelvis w con IMPRESSION: There has been interval development of right-sided hydroureter with an 8 mm stone now at the right ureterovesical junction. There is interval resolution of the left-sided distal ureteral stone with left-sided hydroureter. Additional chronic findings are noted as above. Impression dictated by: Cricket Gallardo M.D.03/12/2024 9:39 AM Dictation Location: [place] [address] Transcribed By: [facility] 03/12/24938 Dictated By: Cricket Gallardo II, MD 03/12/24926 Signed By: 03/12/24938 Normal [facility] Complete Blood Count Auto Di ffon 03-12-2024 Basophils (Bld) [#/Vol] 0.0 10*3/uL Normal 0.0-0.2 The [facility] Comment on above: Result Comment: PERF ORMED BY: [address] [place] [address] PATHOLOGIST COLORER MACHINE MELISSA NUGENT M.D. Performed By: #### B MP, CBC, LIPASE, HEPATIC #### [address] Basophils/100 WBC (Bld) 0.3 % Normal . T he [facility] Comment on above: Performed By: #### B MP, CBC, LIPASE, HEPATIC #### [address] Eosinophils (Bld) [#/Vol] 0.1 10*3/uL Normal 0.0-0.45 The [facility] Comment on above: Performed By: #### B MP, CBC, LIPASE, HEPATIC #### [address] Eosinophils/100 WBC (Bld) 0.9 % Normal . [facility] Comment on above: Performed By: #### B MP, CBC, LIPASE, HEPATIC #### [address] Erythrocyte distribution width (RBC) [Ratio] 13.7 % Normal 12.0-14.8 The [facility] Comment on above: Performed By: #### B MP, CBC, LIPASE, HEPATIC #### [address] Hematocrit (Bld) [Volume fraction] 41.4 % Normal 38.8-50.0 [facility] Comment on above: Performed By: #### B MP, CBC, LIPASE, HEPATIC #### [address] Hemoglobin (Bld) [Mass/Vol] 14.3 g/dL Normal 13.0-17.0 [facility] Comment on above: Performed By: #### B MP, CBC, LIPASE, HEPATIC #### [address] Lymphocytes (Bld) [#/Vol] 0.8 10*3/uL Low 1.00-4.8 [facility] Comment on above: Performed By: #### B MP, CBC, LIPASE, HEPATIC #### [address] Lymphocytes/100 WBC (Bld) 6.7 % Normal . [facility] Comment on above: Performed By: #### B MP, CBC, LIPASE, HEPATIC #### [address] MCH (RBC) [Entitic mass] 29.5 pg Normal 27.5-35.2 [facility] Comment on above: Performed By: #### B MP, CBC, LIPASE, HEPATIC #### [address] MCV (RBC) [Entitic vol] 85.1 fL Normal 83.5-101 [facility] Comment on above: Performed By: #### B MP, CBC, LIPASE, HEPATIC #### [address] Mean Corpuscular HGB Conc 34.6 g/dL Normal 32.5-35.6 [facility] Comment on above: Performed By: #### B MP, CBC, LIPASE, HEPATIC #### [address] Monocytes (Bld) [#/Vol] 1.1 10*3/uL High 0.0-0.8 [facility] Comment on above: Performed By: #### B MP, CBC, LIPASE, HEPATIC #### [address] Monocytes/100 WBC (Bld) 18.53 % Normal 0.00-20.00 [facility] Comment on above: Performed By: #### B MP, CBC, LIPASE, HEPATIC #### [address] Monocytes/100 WBC (Bld) 8.6 % Normal . [facility] Comment on above: Performed By: #### B MP, CBC, LIPASE, HEPATIC #### [address] Neutrophils (Bld) [#/Vol] 10.4 10*3/uL High 1.8-7.7 [facility] Comment on above: Performed By: #### B MP, CBC, LIPASE, HEPATIC #### [address] Neutrophils/100 WBC (Bld) 83.5 % Normal . [facility] Comment on above: Performed By: #### B MP, CBC, LIPASE, HEPATIC #### [address] NRBC% 0.1 /100{WBC} Normal 0-0.5 The [facility] Comment on above: Performed By: #### B MP, CBC, LIPASE, HEPATIC #### [address] Platelet mean volume (Bld) [Entitic vol] 10.8 fL High 6.6-10.1 The [facility] Comment on above: Performed By: #### B MP, CBC, LIPASE, HEPATIC #### [address] Platelets (Bld) [#/Vol] 170 10*3/uL Normal 150-450 [facility] Comment on above: Performed By: #### B MP, CBC, LIPASE, HEPATIC #### [address] RBC (Bld) [#/Vol] 4.87 10*6/uL Normal 3.90-5.60 The [facility] Comment on above: Performed By: #### B MP, CBC, LIPASE, HEPATIC #### [address] WBC (Bld) [#/Vol] 12.4 10*3/uL High 4.1-10.5 The [facility] Comment on above: Performed By: #### B MP, CBC, LIPASE, HEPATIC #### [address] Dipstick and Microscopicon 1 05-13-2023 Appearance (U) Clear Normal Clear The [facility] Comment on above: Order Comment: Name Collection Type:: Voided Performed By: #### A DDONUAPLUS #### [place] [address] [place] Bacteria,Urine None Seen Normal None Seen [facility] Comment on above: Order Comment: Name Collection Type:: Voided Result Comment: PERF ORMED BY: [place] [address] PATHOLOGIST COLORER MACHINE MELISSA NUGENT M.D. Performed By: #### A DDONUAPLUS #### [place] [address] [place] Bilirubin,Urine Negative Normal Negative The [facility] Comment on above: Order Comment: Name Collection Type:: Voided Performed By: #### A DDONUAPLUS #### [place] [address] [place] Color (U) Yellow Normal Yellow [facility] Comment on above: Order Comment: Name Collection Type:: Voided Performed By: #### A DDONUAPLUS #### [place] [address] [place] Glucose Ql (U) 500 mg/dL High Normal [facility] Comment on above: Order Comment: Name Collection Type:: Voided Performed By: #### A DDONUAPLUS #### [place] [address] [place] Ketones Ql (U) 1+ High Negative [facility] Comment on above: Order Comment: Name Collection Type:: Voided Performed By: #### A DDONUAPLUS #### [place] [address] [place] Leukocyte esterase Test strip Ql (U) Negative Normal Negative [facility] Comment on above: Order Comment: Name Collection Type:: Voided Performed By: #### A DDONUAPLUS #### [place] [address] [place] Nitrite,Urine Negative Normal Negative The [facility] Comment on above: Order Comment: Name Collection Type:: Voided Performed By: #### A DDONUAPLUS #### [place] [address] [place] Occult Blood,Urine 2+ High Negative [facility] Comment on above: Order Comment: Name Collection Type:: Voided Result Comment: PERF ORMED BY: [place] [address] PATHOLOGIST COLORER MACHINE MELISSA NUGENT M.D. Performed By: #### A DDONUAPLUS #### [address] pH (U) 5.0 [pH] Normal 5.0-9.0 [facility] Comment on above: Order Comment: Name Collection Type:: Voided Performed By: #### A DDONUAPLUS #### [address] Protein,Urine Negative Normal Negative The [facility] Comment on above: Order Comment: Name Collection Type:: Voided Performed By: #### A DDONUAPLUS #### [address] RBC,Urine 3 [HPF] Normal 0-4 [facility] Comment on above: Order Comment: Name Collection Type:: Voided Performed By: #### A DDONUAPLUS #### [address] Specificy [place],Urine >1.050 High 1.001-1.030 [facility] Comment on above: Order Comment: Name Collection Type:: Voided Performed By: #### A DDONUAPLUS #### [place] [address] [place] Squamous Epithelial Cell,Urine 0 [HPF] Normal 0-2 [facility] Comment on above: Order Comment: Name Collection Type:: Voided Performed By: #### A DDONUAPLUS #### [address] Urobilinogen,Urine Normal Normal Normal The [facility] Comment on above: Order Comment: Name Collection Type:: Voided Performed By: #### A DDONUAPLUS #### [place] [address] [place] WBC,Urine 5 [HPF] High 0-4 [facility] Comment on above: Order Comment: Name Collection Type:: Voided Performed By: #### A DDONUAPLUS #### [facility] [address] [place] [address] ECG 12 lead ECGon 03-12-2024 ECG 12 lead ECG [facility] [place] [address] [place] [address] Electrocardiograph Report Signed Patient: Mimi Mcbride JR MR#: [id number] : 1950 Acct:[id number] Age/Sex: 73 / M ADM Date: 03/12/24 Loc: Room: [address] [place] [address] Type: ADM IN Attending Dr: Dayo Olvera MD Ordering Provider: Leandra Castro MD Date of Service: 03/12/2412/26/756 ECG/ECG 12 lead ECG: n/v Copies to: Test Reason : Blood Pressure : 181/94 mmHG Vent. Rate : 74 BPM Atrial Rate : 74 BPM P-R Int : 140 ms QRS Dur : 76 ms QT Int : 380 ms P-R-T Axes : 69 9 62 degrees QTcB Int : 421 ms Normal sinus rhythm When compared with ECG of 15-Feb-2007 06:30, No significant change was found Confirmed by Leandra Castro MD ([id number]) on 03/13/2024 2:11:36 PM Referred By: Electronically Signed By: Leandra Castro MD Transcribed By: MUS Signed By Leandra Castro MD 03/04 1411 Normal [facility] Glucose Poct Glucometerson 1 05-13-2023 Commemt1 Glu2: Cleaned Meter Normal [facility] Comment on above: Result Comment: PERF ORMED BY: [place] [address] PATHOLOGIST COLORER MACHINE MELISSA NUGENT M.D. Performed By: #### B MP, CBC, LIPASE, HEPATIC #### [address] Glucose [Mass/Vol] 172 mg/dL Normal [facility] Comment on above: Result Comment: [place] Glucose Reference Range is dependent on time and content of last meal. Glucose of more than 200 mg/dL in a nonstressed, ambulatory subject supports the diagnosis of Diabetes Mellitus. Performed By: #### B MP, CBC, LIPASE, HEPATIC #### [address] Glucose [Mass/Vol] 157 mg/dL Normal [facility] Comment on above: Result Comment: [place] Glucose Reference Range is dependent on time and content of last meal. Glucose of more than 200 mg/dL in a nonstressed, ambulatory subject supports the diagnosis of Diabetes Mellitus. PERFORMED BY: [place] [address] PATHOLOGIST COLORER MACHINE MELISSA NUGENT M.D. Performed By: #### G LULS #### Point of Care testing , Glucose [Mass/Vol] 174 mg/dL Normal [facility] Comment on above: Result Comment: [facility] Glucose Reference Range is dependent on time and content of last meal. Glucose of more than 200 mg/dL in a nonstressed, ambulatory subject supports the diagnosis of Diabetes Mellitus. PERFORMED BY: [place] [address] PATHOLOGIST COLORER MACHINE MELISSA NUGENT M.D. Performed By: #### B MP, CBC, LIPASE, HEPATIC #### [address] Hepatic Panelon 03-12-2024 Albumin [Mass/Vol] 4.5 g/dL Normal 3.5-5.7 [facility] Comment on above: Performed By: #### B MP, CBC, LIPASE, HEPATIC #### [address] Albumin/Globulin [Mass ratio] 1.6 {ratio} Normal [facility] Comment on above: Performed By: #### B MP, CBC, LIPASE, HEPATIC #### [address] ALP [Catalytic activity/Vol] 83 U/L Normal 34-104 [facility] Comment on above: Performed By: #### B MP, CBC, LIPASE, HEPATIC #### [facility] [address] ALT [Catalytic activity/Vol] 17 U/L Normal 7-52 [facility] Comment on above: Performed By: #### B MP, CBC, LIPASE, HEPATIC #### [facility] [address] AST [Catalytic activity/Vol] 15 U/L Normal 13-39 [facility] Comment on above: Performed By: #### B MP, CBC, LIPASE, HEPATIC #### [facility] [address] Bilirubin [Mass/Vol] 0.7 mg/dL Normal 0.3-1.0 [facility] Comment on above: Performed By: #### B MP, CBC, LIPASE, HEPATIC #### [address] Bilirubin,Indirect 0.6 mg/dL Normal [facility] Comment on above: Performed By: #### B MP, CBC, LIPASE, HEPATIC #### [facility] [address] Bilirubin.indirect [Mass/Vol] 0.10 mg/dL Normal 0.03-0.18 [facility] Comment on above: Performed By: #### B MP, CBC, LIPASE, HEPATIC #### [address] Globulin (S) [Mass/Vol] 2.9 g/dL Normal [facility] Comment on above: Performed By: #### B MP, CBC, LIPASE, HEPATIC #### [facility] [address] Protein [Mass/Vol] 7.4 g/dL Normal 6.4-8.9 [facility] Comment on above: Performed By: #### B MP, CBC, LIPASE, HEPATIC #### [facility] [address] Lactic Acidon 03-12-2024 Lactate [Moles/Vol] 1.0 mmol/L Normal 0.5-2.2 [facility] Comment on above: Result Comment: PERF ORMED BY: [place] [address] PATHOLOGIST COLORER MACHINE MELISSA NUGENT M.D. Performed By: #### A DDONUAPLUS #### [address] Lipaseon 03-12-2024 Lipase [Catalytic activity/Vol] 49.0 U/L Normal 11.0-82.0 [facility] Comment on above: Result Comment: PERF ORMED BY: [place] [address] PATHOLOGIST COLORER MACHINE MELISSA NUGENT M.D. Performed By: #### B MP, CBC, LIPASE, HEPATIC #### [address] Troponin I High Sensitivityo n 03-12-2024 Troponin I High Sensitivity 4.3 pg/mL Normal 0.0-20.0 [facility] Comment on above: Result Comment: PERF ORMED BY: [place] [address] PATHOLOGIST COLORER MACHINE MELISSA NUGENT M.D. Performed By: #### A DDONUAPLUS #### [address] XR chest 2V*on 03-12-2024 XR chest 2V* [facility] [place] [address] [place] [address] XRay Report Signed Patient: Mimi Mcbride JR MR#: [id number] : 1950 Acct:[id number] Age/Sex: 73 / M ADM Date: 03/12/24 Loc: ER Room: Type: [facility] ER Attending Dr: Copies to: Leandra Castro MD Ordering Provider: Leandra Castro MD Date of Service: 03/12/24 XR/XR chest 2V*: n/v Plain film chest 2 view HISTORY: Worsening right flank pain. History of renal stone. COMPARISON: None FINDINGS: SUPPORT DEVICES: None POSTSURGICAL CHANGES: None HEART: Within normal limits PULMONARY NEREIDA: Within normal limits MEDIASTINUM: Unremarkable LUNGS AND PLEURA: No acute lung process, pleural effusion or pneumothorax identified. BONY STRUCTURES: Intact ADDITIONAL FINDINGS , mild right hemidiaphragm elevation XR/XR chest 2V* IMPRESSION: No acute process. Impression dictated by: Mike Hadley M.D.03/12/2024 9:45 AM Dictation Location: [place] [address] Transcribed By: [facility] 03/12/24944 Dictated By: Mike Hadley DO 03/12/24943 Signed By: 03/12/24944 Normal [facility] A1C with Estimated Average Cabrera oconnor 01-18-2024 Glucose [Mass/Vol] 197 mg/dL Normal [facility] Comment on above: Order Comment: Name Collection Type:: Voided Result Comment: PERF ORMED BY: [place] [address] PATHOLOGIST COLORER MACHINE VON SWEENEY M.D. Performed By: #### A DDONUAPLUS #### [address] HbA1c (Bld) [Mass fraction] 8.5 % High 4.3-5.6 [facility] Comment on above: Order Comment: Name Collection Type:: Voided Result Comment: Incr eased risk for diabetes: 5.7 - 6.4 diabetes: >6.4 glycemic control for adults with diabetes: <7.0 Performed By: #### A DDONUAPLUS #### [address] Alanine aminotransferase [En zymatic activity/volume] in Serum or PlasmaOrdered By: Shantal Kim on 01-18-2024 ALT [Catalytic activity/Vol] 37 U/L Normal [facility] Comment on above: Order Comment: ISAIAS HOLBROOK Performed By: #### T 4F, PSAS, A1C WTH eA, CBC, TSH3, CMP, URMACRERAT, LIPID #### [facility] [address] [place], [place] [id number] [place] Albumin [Mass/volume] in Ser um or Plasma by Bromocresol green (BCG) dye binding methoOrdered By: Shantal Kim on 01-18-2024 Albumin BCG dye [Mass/Vol] 4.0 g/dL 3.5-5.7 [facility] Alkaline phosphatase [Enzyma tic activity/volume] in Serum or PlasmaOrdered By: Shantal Kim on 01-18-2024 ALP [Catalytic activity/Vol] 80 U/L Normal 34-104 [facility] Comment on above: Order Comment: [email or web address] Performed By: #### T 4F, PSAS, A1C WTH eA, CBC, TSH3, CMP, URMACRERAT, LIPID #### [facility] [address] [place] [address] [place] Aspartate aminotransferase [ Enzymatic activity/volume] in Serum or PlasmaOrdered By: Shantal Kim on 01-18-2024 AST [Catalytic activity/Vol] 20 U/L Normal 13-39 [facility] Comment on above: Order Comment: [email or web address] Performed By: #### T 4F, PSAS, A1C WTH eA, CBC, TSH3, CMP, URMACRERAT, LIPID #### [facility] [address] Automated basophil %Ordered By: Shantal Kim on 01-18-2024 Basophils/100 WBC (Bld) 0.5 % Normal . [facility] Comment on above: Order Comment: [email or web address] Performed By: #### T 4F, PSAS, A1C WTH eA, CBC, TSH3, CMP, URMACRERAT, LIPID #### [facility] [address] Automated basophil countOrde red By: Shantal Kim on 01-18-2024 Basophils (Bld) [#/Vol] 0.0 10*3/uL Normal 0.0-0.2 [facility] Comment on above: Order Comment: [email or web address] Result Comment: PERF ORMED BY: [place] [address] PATHOLOGIST COLORER MACHINE JIANLAN SUN M.D. Performed By: #### T 4F, PSAS, A1C WTH eA, CBC, TSH3, CMP, URMACRERAT, LIPID #### [facility] [address] Automated blood monocyte cou ntOrdered By: Shantal Kim on 01-18-2024 Monocytes (Bld) [#/Vol] 0.4 10*3/uL Normal 0.0-0.8 [facility] Comment on above: Order Comment: [email or web address] Performed By: #### T 4F, PSAS, A1C WTH eA, CBC, TSH3, CMP, URMACRERAT, LIPID #### [facility] [address] Automated eosinophil %Ordere d By: Shantal Kim on 01-18-2024 Eosinophils/100 WBC (Bld) 2.6 % Normal . [facility] Comment on above: Order Comment: [email or web address] Performed By: #### T 4F, PSAS, A1C WTH eA, CBC, TSH3, CMP, URMACRERAT, LIPID #### [facility] [address] [place] [address] Automated eosinophil countOr dered By: Shantal Kim on 01-18-2024 Eosinophils (Bld) [#/Vol] 0.1 10*3/uL Normal 0.0-0.45 [facility] Comment on above: Order Comment: [email or web address] Performed By: #### T 4F, PSAS, A1C WTH eA, CBC, TSH3, CMP, URMACRERAT, LIPID #### [facility] [address] Automated monocyte %Ordered By: Shantal Kim on 01-18-2024 Monocytes/100 WBC (Bld) 7.8 % Normal . [facility] Comment on above: Order Comment: [email or web address] Performed By: #### T 4F, PSAS, A1C WTH eA, CBC, TSH3, CMP, URMACRERAT, LIPID #### [facility] [address] Automated neutrophil %Ordere d By: Shantal Kim on 01-18-2024 Neutrophils/100 WBC (Bld) 67.2 % Normal . [facility] Comment on above: Order Comment: ISAIAS [email or web address] Performed By: #### T 4F, PSAS, A1C WTH eA, CBC, TSH3, CMP, URMACRERAT, LIPID #### [facility] [address] [place] [id number] [place] Bilirubin.total [Mass/volume ] in Serum or PlasmaOrdered By: Shantal Kim on 01-18-2024 Bilirubin [Mass/Vol] 0.7 mg/dL Normal 0.3-1.0 [facility] Comment on above: Order Comment: [email or web address] Performed By: #### T 4F, PSAS, A1C WTH eA, CBC, TSH3, CMP, URMACRERAT, LIPID #### [facility] [address] [place] [id number] [place] Calcium [Mass/volume] in Ser um or PlasmaOrdered By: Shantal Kim on 01-18-2024 Calcium [Mass/Vol] 9.5 mg/dL Normal 8.6-10.3 [facility] Comment on above: Order Comment: [email or web address] Performed By: #### T 4F, PSAS, A1C WTH eA, CBC, TSH3, CMP, URMACRERAT, LIPID #### [facility] [address] [place] [id number] [place] Carbon dioxide, total [Moles /volume] in Serum or PlasmaOrdered By: Shantal Kim on 01-18-2024 CO2 [Moles/Vol] 32.9 mmol/L High 21.0-31.0 [facility] Comment on above: Order Comment: [email or web address] Performed By: #### T 4F, PSAS, A1C WTH eA, CBC, TSH3, CMP, URMACRERAT, LIPID #### [facility] [address] [place] [id number] [place] Chloride [Moles/volume] in S rosa m or PlasmaOrdered By: Shantal Kim on 01-18-2024 Chloride [Moles/Vol] 101 mmol/L Normal 98-107 [facility] Comment on above: Order Comment: [email or web address] Performed By: #### T 4F, PSAS, A1C WTH eA, CBC, TSH3, CMP, URMACRERAT, LIPID #### [facility] [address] Cholesterol [Mass/volume] in Serum or PlasmaOrdered By: Shantal Kim on 01-18-2024 Cholesterol [Mass/Vol] 132 mg/dL Low 140-200 [facility] Comment on above: Chol less than 200 m g/dl low riskChol 201-239 mg/dl borderline riskChol 240 mg/dl and greater high risk Order Comment: Name Collection Type:: Voided Result Comment: Chol less than 200 mg/dl low risk Chol 201-239 mg/dl borderline risk Chol 240 mg/dl and greater high risk Performed By: #### A DDONUAPLUS #### [facility] [address] Cholesterol in LDL Calc [Mas s/Vol]Ordered By: Shantal Kim on 01-18-2024 Cholesterol in LDL [Mass/Vol] 82 mg/dL 0-100 [facility] Comment on above: LDL ATP III CLASSIFI CATIONLDL less than 100 mg/dL OptimalLDL 100-129 mg/dL Near or above optimalLDL 130-159 mg/dL Borderline highLDL 160-189 mg/dL HighLDL greater than 189 mg/dL Very high Cholesterol in VLDL Calc [Ma ss/Vol]Ordered By: Shantal Kim on 01-18-2024 Cholesterol in VLDL [Mass/Vol] 23 mg/dL [facility] Complete Blood Count Auto Di ffon 01-18-2024 Mean Corpuscular HGB Conc 35.1 g/dL Normal 32.5-35.6 [facility] Comment on above: Order Comment: [email or web address] Performed By: #### T 4F, PSAS, A1C WTH eA, CBC, TSH3, CMP, URMACRERAT, LIPID #### [facility] [address] NRBC% 0.1 /100{WBC} Normal 0-0.5 [facility] Comment on above: Order Comment: [email or web address] Performed By: #### T 4F, PSAS, A1C WTH eA, CBC, TSH3, CMP, URMACRERAT, LIPID #### [facility] [address] [place] [id number] [facility] Comprehensive Metabolic Pane zita 01-18-2024 Albumin [Mass/Vol] 4.0 g/dL Normal 3.5-5.7 [facility] Comment on above: Order Comment: [email or web address] Performed By: #### T 4F, PSAS, A1C WTH eA, CBC, TSH3, CMP, URMACRERAT, LIPID #### [facility] [address] GFR/1.73 sq M.predicted MDRD (S/P/Bld) [Vol rate/Area] mL/min/{1.73_m2} Normal [facility] Comment on above: Order Comment: [email or web address] Performed By: #### T 4F, PSAS, A1C WTH eA, CBC, TSH3, CMP, URMACRERAT, LIPID #### [facility] [address] Creatinine [Mass/volume] in Serum or PlasmaOrdered By: Shantal Kim on 01-18-2024 Creatinine [Mass/Vol] 1.01 mg/dL Normal 0.70-1.30 [facility] Comment on above: Order Comment: [email or web address] Performed By: #### T 4F, PSAS, A1C WTH eA, CBC, TSH3, CMP, URMACRERAT, LIPID #### [facility] [address] [place] [id number] [facility] Creatinine [Mass/volume] in UrineOrdered By: Shantal Kim on 01-18-2024 Creatinine (U) [Mass/Vol] 131.00 mg/dL [facility] Comment on above: No reference range e stablished Erythrocyte distribution wid th [Ratio] by Automated countOrdered By: Shantal Kim on 01-18-2024 Erythrocyte distribution width (RBC) [Ratio] 13.0 % Normal 12.0-14.8 [facility] Comment on above: Order Comment: [email or web address] Performed By: #### T 4F, PSAS, A1C WTH eA, CBC, TSH3, CMP, URMACRERAT, LIPID #### [facility] [address] Erythrocytes [#/volume] in B lood by Automated countOrdered By: Shantal Kim on 01-18-2024 RBC (Bld) [#/Vol] 4.87 10*6/uL Normal 3.90-5.[address] [facility] Comment on above: Order Comment: [email or web address] Performed By: #### T 4F, PSAS, A1C WTH eA, CBC, TSH3, CMP, URMACRERAT, LIPID #### [facility] [address] Glucose [Mass/volume] in Ser um or PlasmaOrdered By: Shantal Kim on 01-18-2024 Glucose [Mass/Vol] 175 mg/dL High 70-100 [facility] Comment on above: ADA recommended refe rence rangeRandom Glucose Reference Range is dependent on time and content of last meal. Glucose of more than 200 mg/dL in a nonstressed, ambulatory subject supports the diagnosis of Diabetes Mellitus. Order Comment: [email or web address] Result Comment: [place] om Glucose Reference Range is dependent on time and content of last meal. Glucose of more than 200 mg/dL in a nonstressed, ambulatory subject supports the diagnosis of Diabetes Mellitus. ADA recommended reference range Performed By: #### T 4F, PSAS, A1C WTH eA, CBC, TSH3, CMP, URMACRERAT, LIPID #### [facility] [address] [place] [address] [place] Hematocrit [Volume Fraction] of Blood by Automated countOrdered By: Shantal Kim on 01-18-2024 Hematocrit (Bld) [Volume fraction] 41.0 % Normal 38.8-50.0 [facility] Comment on above: Order Comment: [email or web address] Performed By: #### T 4F, PSAS, A1C WTH eA, CBC, TSH3, CMP, URMACRERAT, LIPID #### [facility] [address] [place] [address] [place] Hemoglobin [Mass/volume] in BloodOrdered By: Shantal Kim on 01-18-2024 Hemoglobin (Bld) [Mass/Vol] 14.4 g/dL Normal 13.0-17.0 [facility] Comment on above: Order Comment: [email or web address] Performed By: #### T 4F, PSAS, A1C WTH eA, CBC, TSH3, CMP, URMACRERAT, LIPID #### [facility] [address] Leukocytes [#/volume] correc wendy for nucleated erythrocytes in Blood by Automated counOrdered By: Shantal Kim on 01-18-2024 WBC corrected for nucl RBC Auto (Bld) [#/Vol] 5.2 10*3/uL 4.1-10.5 [facility] Leukocytes [#/volume] in Blo od by Automated countOrdered By: Shantal Kim on 01-18-2024 WBC (Bld) [#/Vol] 5.2 10*3/uL Normal 4.1-10.5 [facility] Comment on above: Order Comment: [email or web address] Performed By: #### T 4F, PSAS, A1C WTH eA, CBC, TSH3, CMP, URMACRERAT, LIPID #### [facility] [address] Lipid Panelon 01-18-2024 LDL Cholesterol,Calculated 82 mg/dL Normal 0-100 [facility] Comment on above: Order Comment: Name Collection Type:: Voided Result Comment: LDL ATP III CLASSIFICATION LDL less than 100 mg/dL Optimal LDL 100-129 mg/dL Near or above optimal LDL 130-159 mg/dL Borderline high LDL 160-189 mg/dL High LDL greater than 189 mg/dL Very high Performed By: #### A DDONUAPLUS #### [address] Triglyceride w/Reflex 118 mg/dL Normal 0-149 [facility] Comment on above: Order Comment: Name Collection Type:: Voided Result Comment: TRIG ATP III CLASSIFICATION TRIG less than 150 mg/dL Normal TRIG 150-199 mg/dL Borderline high TRIG 200-500 mg/dL High TRIG greater than 500 mg/dL Very high Standard traceable to the Center for Disease Conrtrol and Prevention (CDC) test method. Performed By: #### A DDONUAPLUS #### [address] VLDL CHOLESTEROL 23 mg/dL Normal The [facility] Comment on above: Order Comment: Name Collection Type:: Voided Performed By: #### A DDONUAPLUS #### [address] Lymphocytes [#/volume] in Bl ood by Automated countOrdered By: Shantal Kim on 01-18-2024 Lymphocytes (Bld) [#/Vol] 1.1 10*3/uL Normal 1.00-4.8 [facility] Comment on above: Order Comment: [email or web address] Performed By: #### T 4F, PSAS, A1C WTH eA, CBC, TSH3, CMP, URMACRERAT, LIPID #### [address] Lymphocytes/100 leukocytes i n Blood by Automated countOrdered By: Shantal Kim on 01-18-2024 Lymphocytes/100 WBC (Bld) 21.9 % Normal . [facility] Comment on above: Order Comment: [email or web address] Performed By: #### T 4F, PSAS, A1C WTH eA, CBC, TSH3, CMP, URMACRERAT, LIPID #### [address] MCH [Entitic mass] by Automa wendy countOrdered By: Shantal Kim on 01-18-2024 MCH (RBC) [Entitic mass] 29.5 pg Normal 27.5-35.2 [facility] Comment on above: Order Comment: [email or web address] Performed By: #### T 4F, PSAS, A1C WTH eA, CBC, TSH3, CMP, URMACRERAT, LIPID #### [address] MCHC Auto (RBC) [Mass/Vol]Or dered By: Shantal Kim on 01-18-2024 MCHC (RBC) [Mass/Vol] 35.1 g/dL 32.5-35.6 [facility] MCV [Entitic volume] by Auto mated countOrdered By: Shantal Kim on 01-18-2024 MCV (RBC) [Entitic vol] 84.1 fL Normal 83.5-101 [facility] Comment on above: Order Comment: [email or web address] Performed By: #### T 4F, PSAS, A1C WTH eA, CBC, TSH3, CMP, URMACRERAT, LIPID #### [facility] [address] [place] [address] [place] MicroAlb Creat Ratio,Uon Creatinine, Urine (Random) 131.00 mg/dL Normal [facility] Comment on above: Order Comment: [email or web address] Result Comment: No r eference range established Performed By: #### T 4F, PSAS, A1C WTH eA, CBC, TSH3, CMP, URMACRERAT, LIPID #### [place] [id number] [facility] Microalbumin/Creatinine Ratio 11.5 mg/g Normal 0.0-30.0 [facility] Comment on above: Order Comment: [email or web address] Result Comment: 30-3 00 mg/g indicates an increased risk for diabetic nephropathy. Greater than 300 mg/g is consistent with clinical nephropathy. (Am. J. Kidney Disease 1995, 25:107) PERFORMED BY: [place] [address] PATHOLOGIST COLORER MACHINE VON SWEENEY M.D. Performed By: #### T 4F, PSAS, A1C WTH eA, CBC, TSH3, CMP, URMACRERAT, LIPID #### [place] [address] [place] Microalbumin [Mass/volume] i n UrineOrdered By: Shantal Kim on 01-18-2024 Albumin DL <= 20 mg/L (U) [Mass/Vol] 1.5 mg/dL Normal 0.0-1.8 [facility] Comment on above: Order Comment: [email or web address] Performed By: #### T 4F, PSAS, A1C WTH eA, CBC, TSH3, CMP, URMACRERAT, LIPID #### [facility] [address] Neutrophils [#/volume] in Bl ood by Automated countOrdered By: Shantal Kim on 01-18-2024 Neutrophils (Bld) [#/Vol] 3.5 10*3/uL Normal 1.8-7.7 [facility] Comment on above: Order Comment: [email or web address] Performed By: #### T 4F, PSAS, A1C WTH eA, CBC, TSH3, CMP, URMACRERAT, LIPID #### [facility] [address] No Panel InformationOrdered By: Shantal Kim on 01-18-2024 Estimated GFR (CKD-EPI) > 60.0 mL/Min [facility] Creatinine Clearance (Chem N/A [facility] Nucleated erythrocytes [Pres ence] in Blood by Automated countOrdered By: Shantal Kim on 01-18-2024 Nucleated RBC Auto Ql (Bld) 0.1 /100{WBC} 0-0.5 [facility] PSA Screen (Yearly Only)on PSA Screen (Yearly Only) 3.690 ng/mL Normal 0.000-4.000 [facility] Comment on above: Order Comment: [email or web address] Is patient <50 yrs? Medicare does not pay <50.: N What is the date of the last PSA Screen?: 12/14/21 Is Medicare the insurance?: Y Did you verify eligibility (Dx Time) check TestViewGp: YES TO ALL Result Comment: Hernandez al tumor marker results determined by assays using different manufacturers or methods may not be comparable. [facility] market research assistant and method: Yohobuy DXI, CHEMILUMINESCENT IMMUNOASSAY. PERFORMED BY: [facility] [address] [place] [address] PATHOLOGIST COLORER MACHINE VON SWEENEY M.D. Performed By: #### T 4F, PSAS, A1C WTH eA, CBC, TSH3, CMP, URMACRERAT, LIPID #### [facility] [address] [place] [id number] [place] Platelet mean volume [Entiti c volume] in Blood by Automated countOrdered By: Shantal Kim on 01-18-2024 Platelet mean volume (Bld) [Entitic vol] 9.9 fL Normal 6.6-10.1 [facility] Comment on above: Order Comment: [email or web address] Performed By: #### T 4F, PSAS, A1C WTH eA, CBC, TSH3, CMP, URMACRERAT, LIPID #### [facility] [address] [place] [address] [place] Platelets [#/volume] in Bloo d by Automated countOrdered By: Shantal Kim on 01-18-2024 Platelets (Bld) [#/Vol] 154 10*3/uL Normal 150-450 [facility] Comment on above: Order Comment: [email or web address] Performed By: #### T 4F, PSAS, A1C WTH eA, CBC, TSH3, CMP, URMACRERAT, LIPID #### [facility] [id number] [facility] Potassium [Moles/volume] in Serum or PlasmaOrdered By: Shantal Kim on 01-18-2024 Potassium [Moles/Vol] 3.9 mmol/L Normal 3.5-5.1 [facility] Comment on above: Order Comment: [email or web address] Performed By: #### T 4F, PSAS, A1C WTH eA, CBC, TSH3, CMP, URMACRERAT, LIPID #### [facility] [id number] [facility] Prostate specific Ag [Mass/v olume] in Serum or PlasmaOrdered By: Shantal Kim on 01-18-2024 Prostate specific Ag [Mass/Vol] 3.690 ng/mL 0.000-4.000 [facility] Comment on above: Serial tumor marker results determined by assays using different manufacturers or methods may not be comparable.Formerly [facility], Later [facility] market research assistant and method:HEATHER UNICEL DXI, CHEMILUMINESCENT IMMUNOASSAY. Protein [Mass/volume] in Ser um or PlasmaOrdered By: Shantal Kim on 01-18-2024 Protein [Mass/Vol] 6.6 g/dL Normal 6.4-8.9 [facility] Comment on above: Order Comment: [email or web address] Performed By: #### T 4F, PSAS, A1C WTH eA, CBC, TSH3, CMP, URMACRERAT, LIPID #### [facility] [address] Serum globulin measurement b y calculation (mass/volume)Ordered By: Shantal Kim on 01-18-2024 Globulin (S) [Mass/Vol] 2.6 g/dL Normal [facility] Comment on above: Order Comment: [email or web address] Performed By: #### T 4F, PSAS, A1C WTH eA, CBC, TSH3, CMP, URMACRERAT, LIPID #### [address] Serum or plasma albumin/glob ulin mass ratioOrdered By: Shantal Kim on 01-18-2024 Albumin/Globulin [Mass ratio] 1.5 {ratio} Normal [facility] Comment on above: Order Comment: [email or web address] Performed By: #### T 4F, PSAS, A1C WTH eA, CBC, TSH3, CMP, URMACRERAT, LIPID #### [address] Serum or plasma anion gap de terminationOrdered By: Shantal Kim on 01-18-2024 Anion gap [Moles/Vol] 10.0 mmol/L Normal 6.0-15.0 [facility] Comment on above: Order Comment: [email or web address] Performed By: #### T 4F, PSAS, A1C WTH eA, CBC, TSH3, CMP, URMACRERAT, LIPID #### [facility] [address] [place] [address] Serum or plasma high density lipoprotein (HDL) cholesterol measurementOrdered By: Shantal Kim on 01-18-2024 Cholesterol in HDL [Mass/Vol] 26 mg/dL Normal 23-92 [facility] Comment on above: HDL CHOL ATP-III CLA SSIFICATION Cardiovascular RiskHDL > or equal to 60 mg/dL LOWHDL < 40 mg/dL HIGH Order Comment: Name Collection Type:: Voided Result Comment: HDL CHOL ATP-III CLASSIFICATION Cardiovascular Risk HDL > or equal to 60 mg/dL LOW HDL < 40 mg/dL HIGH Performed By: #### A DDONUAPLUS #### [address] Serum or plasma total choles terol/high density lipoprotein (HDL) cholesterol mass ratOrdered By: Shantal Kim on 01-18-2024 Cholesterol.total/Aimee sterol in HDL [Mass ratio] 5.1 {ratio} Normal <5.0 [facility] Comment on above: Order Comment: Name Collection Type:: Voided Performed By: #### A DDONUAPLUS #### [address] Sodium [Moles/volume] in Ser um or PlasmaOrdered By: Shantal Kim on 01-18-2024 Sodium [Moles/Vol] 140 mmol/L Normal 136-145 [facility] Comment on above: Order Comment: [email or web address] [email or web address] Performed By: #### T 4F, PSAS, A1C WTH eA, CBC, TSH3, CMP, URMACRERAT, LIPID #### [address] Thyrotropin [Units/volume] i n Serum or PlasmaOrdered By: Shantal Kim on 01-18-2024 TSH Qn 3.02 m[IU]/L Normal 0.45-5.33 [facility] Comment on above: Order Comment: Name Collection Type:: Voided Result Comment: PERF ORMED BY: [place] [address] PATHOLOGIST COLORER MACHINE VON SWEENEY M.D. Performed By: #### A DDONUAPLUS #### [address] Thyroxine (T4) free [Mass/vo lume] in Serum or PlasmaOrdered By: Shantal Kim on 01-18-2024 Free T4 [Mass/Vol] 0.75 ng/dL Normal 0.61-1.12 [facility] Comment on above: Order Comment: Name Collection Type:: Voided Performed By: #### A DDONUAPLUS #### [facility] [id number] [facility] Triglyceride [Mass/volume] i n Serum or PlasmaOrdered By: Shantal Kim on 01-18-2024 Triglyceride [Mass/Vol] 118 mg/dL 0-149 [facility] Comment on above: TRIG ATP III CLASSIF ICATIONTRIG less than 150 mg/dL NormalTRIG 150-199 mg/dL Borderline highTRIG 200-500 mg/dL High TRIG greater than 500 mg/dL Very highStandard traceable to the Center for Disease Conrtrol and Prevention (CDC) test method. Urea nitrogen [Mass/volume] in Serum or PlasmaOrdered By: hSantal Kim on 01-18-2024 Urea nitrogen [Mass/Vol] 15 mg/dL Normal 7-25 [facility] Comment on above: Order Comment: [email or web address] Performed By: #### T 4F, PSAS, A1C WTH eA, CBC, TSH3, CMP, URMACRERAT, LIPID #### [facility] [id number] [facility] Urine microalbumin/creatinin e mass ratioOrdered By: Shantal Kim on 01-18-2024 Albumin/Creatinine DL <= 20 mg/L (U) [Mass ratio] 11.5 mg/g 0.0-30.0 [facility] Comment on above: 30-300 mg/g indicate s an increased risk for diabetic nephropathy. Greater than 300 mg/g is consistent with clinical nephropathy. (Am. J. Kidney Disease 1995, 25:107) CNOVon 02-28-2023 CNOV Office Visit (OTAUCR ) MIMI MCBRIDE ([id number]) 1950 Date Time Provider Department 02/28/23 10:30 AM NOÉ CERVANTES During your visit today, we recorded the following information about you: Noé Cervantes AUD 03/30/2023 4:53 PM Signed [facility] [place] [facility] ADULT COCHLEAR IMPLANT CANDIDACY EVALUATION Audiometric Testing Name: Mimi Mcbride [facility]#: [id number] Date of Service: February 28, 2023 Date of : 1950 Age: [age] year old Referred by: Parvez Martínez III, MD This patient was referred for an evaluation to determine cochlear implant candidacy. Relevant case history includes the following: HISTORY: Audiologic Audiometric testing was completed at the [facility] on 02/21/2023. See results below. 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; feels left ear is better ear Tinnitus: Constant Dizziness: Denied Otalgia: Denied Otorrhea: Denied Aural Fullness: Denied Family History of Hearing loss: siblings with hearing loss and wear hearing aids History of noise exposure: Significant history (37 years) without use of hearing protection devices Otologic/medical Previous Otologic Surgeries: Denied Medical Conditions: Type 2 Diabetes History of chemotherapy/radiatio n: Denied Head trauma: Denied Amplification Current Make/Model: None History of amplification: Fit with binaural hearing aids at [employer] in 2018, but never wore devices consistently. He returned 3-4 times for adjustments, but never found they were beneficial. Communication limitations/participa tion restrictions Social: Withdrawing from social situations; often embarrassed due to hearing incorrectly; fakes it through conversations - Difficulty hearing 's voice (soft spoken) Occupational: Retired Phone: Limited phone use; uses Speaker Phone and holds phone against his ear Television: Uses Closed Captions QUESTIONNAIRE RESULTS The patient completed the following questionnaires based on their current experience and scored as follows: Hearing Handicap Inventory 02/27/2023 HHIE Total Score 92 Dizziness Handicap Inventory 02/27/2023 Dizziness or imbalance No Tinnitus Handicap Inventory 02/27/2023 Tinnitus Yes Total Score 68 Speech Spatial Qualities Questionaire 02/27/2023 Total Score 2.35 Speech Hearing Subscore 0.5 Spatial Hearing Subscore 5 Qualities of Hearing Subscore 1.28 PROMIS Global Health Scale 02/27/2023 02/27/2023 Physical Health Percentile 41 41 Mental Health Percentile 26* 26* AUDIOMETRIC TESTING HEARING AID TEST RESULTS Clinic Phonak Geeta L90-UP BTE hearing aids were programmed to the patient?s most recent audiogram. Devices were verified utilizing the Audioscan verifit equipment to NAL-NL 1 fitting methods. AIDED SII Meeting Target NAL-NL1 Gain RIGHT Ear CLINIC Device 54 Yes LEFT Ear CLINIC Device 60 Yes Testing proceeded using Clinic hearing aids. AIDED SPEECH TESTING The contralateral ear was Plugged and Muffed and Masked during testing. Speech perception testing was completed using recorded stimuli in quiet in the sound field at conversational level (60 social contact worker); results were: Vfkwwdqtx-Zhfwaff-Szp sonant Words (CNC) Test Condition List # Phonemes Words Right Ear (Clinic WARNER) 7 80% 52% Left Ear (Clinic WARNER) 4 72% 56% Bilateral 10 87% 68% AZ BIO (quiet, -10 dB HL) Test Condition List # Score Right Ear 4 61% Left Ear 7 69% Bilateral 6 86% AZ BIO (+5 SNR) Test Condition List # Score Right Ear 8 20% Left Ear 2 33% Bilateral 3 63% INTERPRETATION OF RESULTS Speech perception testing suggests limited benefit in the right and left only conditions for CNC words. Patient performs best in the bilateral condition in quiet and in background noise. SUMMARY AND RECOMMENDATIONS Based on the audiometric testing: Not a Candidate Based on the audiometric testing, this patient does not meet Medicare criteria for cochlear implantation at this time. While the above speech perception measures identify areas of difficulty in everyday listening situations, there are additional technologies that could provide benefit to this patient. These include updated hearing aid technology, as well as remote microphone/Duane technology. Recommendations: 1) Schedule Hearing Aid Evaluation to discuss new amplification options. 2) Recommend re-evaluation of cochlear implantation annually, or sooner if changes arise. 3) Patient opted to cancel Otology appointment with Parvez Martínez MD as he is not yet a candidate for cochlear implantation. This case will be discussed at the next scheduled Hearing Implant Program (HIP) team meeting. The patient understands that determination of candidacy is an interdisciplinary process and final determination of candidacy will be communicated v (more content not included)... Normal [facility] CNOVon 02-21-2023 CNOV Office Visit (OTAUCR ) MIMI MCBRIDE ([id number]) 1950 M Date Time Provider Department 02/21/23 1:00 PM CORIE CLARK During your visit today, we recorded the following information about you: Corie Clark, DILCIA 02/21/2023 1:47 PM Signed [facility] [place] AUDIOLOGIC EVALUATION REPORT Name: Mimi Mcbride [facility]#: [id number] Date of Service: 02/21/2023 Date of : 1950 Age: [age] year old Referred by: Shantal Kim ([facility]) [address] [place] [phone] Referred for: Evaluation of suspected change in hearing, tinnitus, or balance. Referral documented: In an order in Epic Patient's major complaints: Mimi Mcbride was seen for an initial audiologic evaluation. 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 Risk of Falls Documentation for over 65 years old: No history of falls reported so minimal to no risk IMPRESSIONS RIGHT EAR: Sensorineural hearing loss LEFT EAR: Sensorineural hearing loss AUDIOLOGIC EVALUATION Following is a brief interpretation of the obtained findings from the audiologic evaluation. Refer to the Auditory Test Record for complete audiometric results. The patient was counseled about the test findings and appropriate audiologic recommendations were made. SUMMARY: Audiogram can be viewed under Forms/Audiology/Smart Form. OTOSCOPY RIGHT EAR: Otoscopic inspection revealed ear canal was clear with an identifiable cone of light. LEFT EAR: Otoscopic inspection revealed ear canal was clear with an identifiable cone of light. TYMPANOMETRY Description of procedure: This test is an objective evaluation of middle ear function. CPT code: 51117 RIGHT EAR: Normal ME pressure with reduced TM compliance (mobility). LEFT EAR: Normal ME pressure with reduced TM compliance (mobility). PURE TONE AUDIOMETRY AND SPEECH TESTING Description of procedure: This test is an objective evaluation hearing sensitivity via air and bone conduction and speech recognition testing. CPT code: 53196 RIGHT EAR: Hearing Sensitivity: Normal hearing sensitivity through 750 Hz with mild sensorineural hearing loss at 1 kHz precipitously sloping to profound 4-8 kHz. Word Recognition Score: Very Poor (26%). WRS is poorer than expected given hearing sensitivity. Words were presented at 100 dB HL is above (greater than or equal to 60 dB HL) intensity level for average conversational speech. The NU-6 Ordered by Difficulty Word List (50 words) was used for testing. LEFT EAR: Hearing Sensitivity: Normal hearing sensitivity through 1 kHz with moderate sensorineural hearing loss at 1.5 kHz precipitously sloping to profound at 6 and 8 kHz. Word Recognition Score: Very Poor (52%). WRS is poorer than expected given hearing sensitivity. Words were presented at 95 dB HL which is above (greater than or equal to 60 dB HL) intensity level for average conversational speech. The NU-6 Ordered by Difficulty Word List (50 words) was used for testing. RECOMMENDATIONS * Continue medical follow-up with Parvez Martínez MD. *Continue with scheduled Cochlear Implant Evaluation 02/28/23. Corie Clark, Dilcia, CCC/A copied to: Shantal Kim ([facility]) [address] [facility] [phone] [place] Abbrev- iation Definition Degree of hearing sensitivity dB range WNL within normal limits WNL 0 - 20 SNHL sensorineural hearing loss Mild 20-40 CHL conductive hearing loss Moderate 40-55 MHL mixed hearing loss Moderately-Severe 55-70 WRS word recognition score Severe 70-90 ME middle ear Profound 90 + TM tympanic membrane Referring Provider: SHANTAL KIM [[id number]] Allergies As of Date: 02/21/2023 (Not on File) Date Reviewed: Never Reviewed Primary Visit Diagnosis:Sensorineur al hearing loss, bilateral [H90.3] Other Visit Diagnosis:Tinnitus, bilateral [H93.13] Order(s):HEARING TEST/AUDIOGRAM [[id number]] Order #: [id number]: 1 Problem List As Of Date 02/21/2023 Noted Resolved Sensorineural hearing loss, bilateral [H90.3] 02/21/2023 Tinnitus, bilateral [H93.13] 02/21/2023 Encounter Status:Closed by CORIE CLARK on 02/21/23 Normal [facility] Alanine aminotransferase [En zymatic activity/volume] in Serum or PlasmaOrdered By: Shantal Kim on 01-03-2023 ALT [Catalytic activity/Vol] 13 U/L 7-52 [facility] Albumin [Mass/volume] in Ser um or Plasma by Bromocresol green (BCG) dye binding methoOrdered By: Shantal Kim on 01-03-2023 Albumin BCG dye [Mass/Vol] 4.3 g/dL 3.5-5.7 [facility] Alkaline phosphatase [Enzyma tic activity/volume] in Serum or PlasmaOrdered By: Shantal Kim on 01-03-2023 ALP [Catalytic activity/Vol] 66 U/L 34-104 [facility] Aspartate aminotransferase [ Enzymatic activity/volume] in Serum or PlasmaOrdered By: Shantal Kim on 01-03-2023 AST [Catalytic activity/Vol] 13 U/L 13-39 [facility] Basophils Auto (Bld) [#/Vol] Ordered By: Shantal Kim on 01-03-2023 Basophils (Bld) [#/Vol] 0.1 10*3/uL 0.0-0.2 [facility] Basophils/100 WBC Auto (Bld) Ordered By: Shantal Kim on 01-03-2023 Basophils/100 WBC (Bld) 1.0 % . [facility] Bilirubin.total [Mass/volume ] in Serum or PlasmaOrdered By: Shantal Kim on 01-03-2023 Bilirubin [Mass/Vol] 0.8 mg/dL 0.3-1.0 [facility] Calcium [Mass/volume] in Ser um or PlasmaOrdered By: Shantal Kim on 01-03-2023 Calcium [Mass/Vol] 9.4 mg/dL 8.6-10.3 [facility] Carbon dioxide, total [Moles /volume] in Serum or PlasmaOrdered By: Shantal Kim on 01-03-2023 CO2 [Moles/Vol] 31.9 mmol/L 21.0-31.0 [facility] Chloride [Moles/volume] in S rosa m or PlasmaOrdered By: Shantal Kim on 01-03-2023 Chloride [Moles/Vol] 104 mmol/L 98-107 [facility] Cholesterol [Mass/volume] in Serum or PlasmaOrdered By: Shantal Kim on 01-03-2023 Cholesterol [Mass/Vol] 130 mg/dL 140-200 [facility] Comment on above: Chol less than 200 m g/dl low riskChol 201-239 mg/dl borderline riskChol 240 mg/dl and greater high risk Cholesterol in LDL Calc [Mas s/Vol]Ordered By: Shantal Kim on 01-03-2023 Cholesterol in LDL [Mass/Vol] 76 mg/dL 0-100 [facility] Comment on above: LDL ATP III CLASSIFI CATIONLDL less than 100 mg/dL OptimalLDL 100-129 mg/dL Near or above optimalLDL 130-159 mg/dL Borderline highLDL 160-189 mg/dL HighLDL greater than 189 mg/dL Very high Cholesterol in VLDL Calc [Ma ss/Vol]Ordered By: Shantal Kim on 01-03-2023 Cholesterol in VLDL [Mass/Vol] 16 mg/dL [facility] Creatinine [Mass/volume] in Serum or PlasmaOrdered By: Shantal Kim on 01-03-2023 Creatinine [Mass/Vol] 0.91 mg/dL 0.70-1.30 [facility] Creatinine [Mass/volume] in UrineOrdered By: Shantal Kim on 01-03-2023 Creatinine (U) [Mass/Vol] 223.0 mg/dL 14.0-26.0 [facility] Eosinophils Auto (Bld) [#/Vo l]Ordered By: Shantal Kim on 01-03-2023 Eosinophils (Bld) [#/Vol] 0.2 10*3/uL 0.0-0.45 [facility] Eosinophils/100 WBC Auto (Bl d)Ordered By: Shantal Kim on 01-03-2023 Eosinophils/100 WBC (Bld) 3.3 % . [facility] Erythrocyte distribution wid th Auto (RBC) [Ratio]Ordered By: Shantal Kim on 01-03-2023 Erythrocyte distribution width (RBC) [Ratio] 13.3 % 12.0-14.8 [facility] Globulin Calc (S) [Mass/Vol] Ordered By: Shantal Kim on 01-03-2023 Globulin (S) [Mass/Vol] 2.2 g/dL [facility] Glucose [Mass/volume] in Ser um or PlasmaOrdered By: Shantal Kim on 01-03-2023 Glucose [Mass/Vol] 99 mg/dL 70-100 [facility] Comment on above: ADA recommended refe rence rangeRandom Glucose Reference Range is dependent on time and content of last meal. Glucose of more than 200 mg/dL in a nonstressed, ambulatory subject supports the diagnosis of Diabetes Mellitus. Glucose mean value [Mass/vol ume] in Blood Estimated from glycated hemoglobinOrdered By: Shantal Kim on 01-03-2023 Average glucose Estimated from glycated hemoglobin (Bld) [Mass/Vol] 131 mg/dL [facility] Hematocrit Auto (Bld) [Volum e fraction]Ordered By: Shantal Kim on 01-03-2023 Hematocrit (Bld) [Volume fraction] 41.9 % 38.8-50.0 [facility] Hemoglobin A1c percentageOrd ered By: Shantal Kim on 01-03-2023 HbA1c (Bld) [Mass fraction] 6.2 % 4.3-5.6 [facility] Comment on above: Increased risk for d iabetes: 5.7 - 6.4diabetes: >6.4glycemic control for adults with diabetes: <7.0 Hemoglobin [Mass/volume] in BloodOrdered By: Shantal Kim on 01-03-2023 Hemoglobin (Bld) [Mass/Vol] 14.2 g/dL 13.0-17.0 [facility] Leukocytes [#/volume] correc wendy for nucleated erythrocytes in Blood by Automated counOrdered By: Shantal Kim on 01-03-2023 WBC corrected for nucl RBC Auto (Bld) [#/Vol] 7.2 10*3/uL 4.1-10.5 [facility] Lymphocytes Auto (Bld) [#/Vo l]Ordered By: Shantal Kim on 01-03-2023 Lymphocytes (Bld) [#/Vol] 1.4 10*3/uL 1.00-4.8 [facility] Lymphocytes/100 WBC Auto (Bl d)Ordered By: Shantal Kim on 01-03-2023 Lymphocytes/100 WBC (Bld) 19.7 % . [facility] MCH Auto (RBC) [Entitic mass ]Ordered By: Shantal Kim on 01-03-2023 MCH (RBC) [Entitic mass] 29.6 pg 27.5-35.2 [facility] MCHC Auto (RBC) [Mass/Vol]Or dered By: Shantal Kim on 01-03-2023 MCHC (RBC) [Mass/Vol] 34.0 g/dL 32.5-35.6 [facility] MCV Auto (RBC) [Entitic vol] Ordered By: Shantal Kim on 01-03-2023 MCV (RBC) [Entitic vol] 87.0 fL 83.5-101 [facility] Microalbumin [Mass/volume] i n UrineOrdered By: Shantal Kim on 01-03-2023 Albumin DL <= 20 mg/L (U) [Mass/Vol] 1.4 mg/dL 0.0-1.8 [facility] Monocytes Auto (Bld) [#/Vol] Ordered By: Shantal Kim on 01-03-2023 Monocytes (Bld) [#/Vol] 0.6 10*3/uL 0.0-0.8 [facility] Monocytes/100 WBC Auto (Bld) Ordered By: Shantal Kim on 01-03-2023 Monocytes/100 WBC (Bld) 8.2 % . [facility] Neutrophils Auto (Bld) [#/Vo l]Ordered By: Shantal Kim on 01-03-2023 Neutrophils (Bld) [#/Vol] 4.9 10*3/uL 1.8-7.7 [facility] Neutrophils/100 WBC Auto (Bl d)Ordered By: Shantal Kim on 01-03-2023 Neutrophils/100 WBC (Bld) 67.8 % . [facility] No Panel InformationOrdered By: Shantal Kim on 01-03-2023 Estimated GFR (CKD-EPI) > 60.0 mL/Min [facility] Creatinine Clearance (Chem N/A [facility] Nucleated erythrocytes [Pres ence] in Blood by Automated countOrdered By: Shantal Kim on 01-03-2023 Nucleated RBC Auto Ql (Bld) 0.1 /100{WBC} 0-0.5 [facility] Platelet mean volume Auto (B ld) [Entitic vol]Ordered By: Shantal Kim on 01-03-2023 Platelet mean volume (Bld) [Entitic vol] 10.5 fL 6.6-10.1 [facility] Platelets Auto (Bld) [#/Vol] Ordered By: Shantal Kim on 01-03-2023 Platelets (Bld) [#/Vol] 145 10*3/uL 150-450 [facility] Potassium [Moles/volume] in Serum or PlasmaOrdered By: Shantal Kim on 01-03-2023 Potassium [Moles/Vol] 3.6 mmol/L 3.5-5.1 [facility] Prostate specific Ag [Mass/v olume] in Serum or PlasmaOrdered By: Shantal Kim on 01-03-2023 Prostate specific Ag [Mass/Vol] 3.650 ng/mL 0.000-4.000 [facility] Protein [Mass/volume] in Ser um or PlasmaOrdered By: Shantal Kim on 01-03-2023 Protein [Mass/Vol] 6.5 g/dL 6.4-8.9 [facility] RBC Auto (Bld) [#/Vol]Ordere d By: Shantal Kim on 01-03-2023 RBC (Bld) [#/Vol] 4.81 10*6/uL 3.90-5.[address] [facility] Serum or plasma albumin/glob ulin mass ratioOrdered By: Shantal Kim on 01-03-2023 Albumin/Globulin [Mass ratio] 2.0 {ratio} [facility] Serum or plasma anion gap de terminationOrdered By: Shantal Kim on 01-03-2023 Anion gap [Moles/Vol] 10.7 mmol/L 6.0-15.0 [facility] Serum or plasma high density lipoprotein (HDL) cholesterol measurementOrdered By: Shantal Kim on 01-03-2023 Cholesterol in HDL [Mass/Vol] 37 mg/dL 23-92 [facility] Comment on above: HDL CHOL ATP-III CLA SSIFICATION Cardiovascular RiskHDL > or equal to 60 mg/dL LOWHDL < 40 mg/dL HIGH Serum or plasma total choles terol/high density lipoprotein (HDL) cholesterol mass ratOrdered By: Shantal Kim on 01-03-2023 Cholesterol.total/Aimee sterol in HDL [Mass ratio] 3.5 {ratio} <5.0 [facility] Sodium [Moles/volume] in Ser um or PlasmaOrdered By: Shantal Kim on 01-03-2023 Sodium [Moles/Vol] 143 mmol/L 136-145 [facility] Thyrotropin [Units/volume] i n Serum or PlasmaOrdered By: Shantal Kim on 01-03-2023 TSH Qn 2.45 m[IU]/L 0.45-5.33 [facility] Thyroxine (T4) free [Mass/vo lume] in Serum or PlasmaOrdered By: Shantal Kim on 01-03-2023 Free T4 [Mass/Vol] 0.65 ng/dL 0.61-1.12 [facility] Triglyceride [Mass/volume] i n Serum or PlasmaOrdered By: Shantal Kim on 01-03-2023 Triglyceride [Mass/Vol] 84 mg/dL 0-149 [facility] Comment on above: TRIG ATP III CLASSIF ICATIONTRIG less than 150 mg/dL NormalTRIG 150-199 mg/dL Borderline highTRIG 200-500 mg/dL High TRIG greater than 500 mg/dL Very highStandard traceable to the Center for Disease Conrtrol and Prevention (CDC) test method. Urea nitrogen [Mass/volume] in Serum or PlasmaOrdered By: Shantal Kim on 01-03-2023 Urea nitrogen [Mass/Vol] 16 mg/dL 7-25 [facility] Urine microalbumin/creatinin e mass ratioOrdered By: Shantal Kim on 01-03-2023 Albumin/Creatinine DL <= 20 mg/L (U) [Mass ratio] 6.0 mg/g 0.0-30.0 [facility] Comment on above: 30-300 mg/g indicate s an increased risk for diabetic nephropathy. Greater than 300 mg/g is consistent with clinical nephropathy. (Am. J. Kidney Disease 1995, 25:107) WBC Auto (Bld) [#/Vol]Ordere d By: Shantal Kim on 01-03-2023 WBC (Bld) [#/Vol] 7.2 10*3/uL 4.1-10.5 [facility] Basophils Auto (Bld) [#/Vol] Ordered By: Shantal Kim on 12-14-2021 Basophils (Bld) [#/Vol] 0.1 10*3/uL 0.0-0.2 [facility] Basophils/100 WBC Auto (Bld) Ordered By: Shantal Kim on 12-14-2021 Basophils/100 WBC (Bld) 1.2 % . [facility] Blood hemoglobin measurement (mass/volume)Ordered By: Shantal Kim on 12-14-2021 Hemoglobin (Bld) [Mass/Vol] 14.7 g/dL 13.0-17.0 [facility] Blood leukocytes automated c ount (number/volume)Ordered By: Shantal Kim on 12-14-2021 WBC (Bld) [#/Vol] 7.4 10*3/uL 4.5-11.0 [facility] Body fluid albumin measureme nt (mass/volume)Ordered By: Shantal Kim on 12-14-2021 Albumin (Body fld) [Mass/Vol] 3.9 g/dL 3.2-5.5 [facility] Cholesterol [Mass/volume] in Serum or PlasmaOrdered By: Shantal Kim on 12-14-2021 Cholesterol [Mass/Vol] 146 mg/dL 140-200 [facility] Comment on above: Chol less than 200 m g/dl low risk Chol 201-239 mg/dl borderline risk Chol 240 mg/dl and greater high risk Cholesterol in LDL Calc [Mas s/Vol]Ordered By: Shantal Kim on 12-14-2021 Cholesterol in LDL [Mass/Vol] 90 mg/dL 0-100 [facility] Comment on above: LDL ATP III CLASSIFI CATION LDL less than 100 mg/dL Optimal LDL 100-129 mg/dL Near or above optimal LDL 130-159 mg/dL Borderline high LDL 160-189 mg/dL High LDL greater than 189 mg/dL Very high Cholesterol in VLDL Calc [Ma ss/Vol]Ordered By: Shantal Kim on 12-14-2021 Cholesterol in VLDL [Mass/Vol] 23 mg/dL [facility] Creatinine [Mass/volume] in UrineOrdered By: Shantal Kim on 12-14-2021 Creatinine (U) [Mass/Vol] 308.9 mg/dL [facility] Comment on above: No reference range e stablished Creatinine and Glomerular fi ltration rate.predicted panel (S/P/Bld)Ordered By: Shantal Kim on 12-14-2021 Creatinine [Mass/Vol] 1.01 mg/dL 0.64-1.27 [facility] Eosinophils Auto (Bld) [#/Vo l]Ordered By: Shantal Kim on 12-14-2021 Eosinophils (Bld) [#/Vol] 0.5 10*3/uL 0.0-0.45 [facility] Eosinophils/100 WBC Auto (Bl d)Ordered By: Shantal Kim on 12-14-2021 Eosinophils/100 WBC (Bld) 6.1 % . [facility] Erythrocyte distribution wid th Auto (RBC) [Ratio]Ordered By: Shantal Kim on 12-14-2021 Erythrocyte distribution width (RBC) [Ratio] 13.3 % 12.0-14.8 [facility] Estimated glomerular filtrat ion rate (GFR) non- AmericanOrdered By: Shantal Kim on 12-14-2021 GFR/1.73 sq M.predicted among non-blacks MDRD (S/P/Bld) [Vol rate/Area] > 60 mL/Min [facility] Globulin Calc (S) [Mass/Vol] Ordered By: Shantal Kim on 12-14-2021 Globulin (S) [Mass/Vol] 2.3 g/dL [facility] Glucose mean value [Mass/vol ume] in Blood Estimated from glycated hemoglobinOrdered By: Shantal Kim on 12-14-2021 Average glucose Estimated from glycated hemoglobin (Bld) [Mass/Vol] 166 mg/dL [facility] Hematocrit Auto (Bld) [Volum e fraction]Ordered By: Shantal Kim on 12-14-2021 Hematocrit (Bld) [Volume fraction] 43.0 % 38.8-50.0 [facility] Hemoglobin A1c percentageOrd ered By: Shantal Kim on 12-14-2021 HbA1c (Bld) [Mass fraction] 7.4 % 4.3-5.6 [facility] Comment on above: Increased risk for d iabetes: 5.7 - 6.4 diabetes: >6.4 glycemic control for adults with diabetes: <7.0 Laboratory - Hematology and Cell countsOrdered By: Shantal Kim on 12-14-2021 Nucleated RBC/100 WBC (Bld) [Ratio] 0.1 % 0-0.5 [facility] Lymphocytes Auto (Bld) [#/Vo l]Ordered By: Shantal Kim on 12-14-2021 Lymphocytes (Bld) [#/Vol] 1.3 10*3/uL 1.00-4.8 [facility] Lymphocytes/100 WBC Auto (Bl d)Ordered By: Shantal Kim on 12-14-2021 Lymphocytes/100 WBC (Bld) 18.2 % . [facility] MCH Auto (RBC) [Entitic mass ]Ordered By: Shantal Kim on 12-14-2021 MCH (RBC) [Entitic mass] 29.5 pg 27.5-35.2 [facility] MCHC Auto (RBC) [Mass/Vol]Or dered By: Shantal Kim on 12-14-2021 MCHC (RBC) [Mass/Vol] 34.1 g/dL 32.5-35.6 [facility] MCV Auto (RBC) [Entitic vol] Ordered By: Shantal Kim on 12-14-2021 MCV (RBC) [Entitic vol] 86.6 fL 83.5-101 [facility] Monocytes Auto (Bld) [#/Vol] Ordered By: Shantal Kim on 12-14-2021 Monocytes (Bld) [#/Vol] 0.5 10*3/uL 0.0-0.8 [facility] Monocytes/100 WBC Auto (Bld) Ordered By: Shantal Kim on 12-14-2021 Monocytes/100 WBC (Bld) 7.3 % . [facility] Neutrophils Auto (Bld) [#/Vo l]Ordered By: Shantal Kim on 12-14-2021 Neutrophils (Bld) [#/Vol] 5.0 10*3/uL 1.8-7.7 [facility] Neutrophils/100 WBC Auto (Bl d)Ordered By: Shantal Kim on 12-14-2021 Neutrophils/100 WBC (Bld) 67.2 % . [facility] No Panel InformationOrdered By: Shantal Kim on 12-14-2021 Estimated GFR () > 60 mL/Min [facility] Comment on above: GFR estimated refere nce range: According to KDOQI guidelines, <60 ml/min/1.73m2 is sufficient to diagnose a patient with chronic kidney disease. Pharmacy Creatinine Clearance (Chem N/A [facility] Prostate Specific Antigen Screen 2.940 ng/mL 0.000-4.000 [facility] Platelet mean volume Auto (B ld) [Entitic vol]Ordered By: Shantal Kim on 12-14-2021 Platelet mean volume (Bld) [Entitic vol] 10.0 fL 6.6-10.1 [facility] Platelets Auto (Bld) [#/Vol] Ordered By: Shantal Kim on 12-14-2021 Platelets (Bld) [#/Vol] 170 10*3/uL 150-450 [facility] Protein [Mass/volume] in Ser um or PlasmaOrdered By: Shantal Kim on 12-14-2021 Protein [Mass/Vol] 6.2 g/dL 6.1-7.9 [facility] RBC Auto (Bld) [#/Vol]Ordere d By: Shantal Kim on 12-14-2021 RBC (Bld) [#/Vol] 4.97 10*6/uL 3.90-5.[address] [facility] Serum or plasma alanine peña otransferase measurement without P-5'-P (enzymatic activiOrdered By: Shantal Kim on 12-14-2021 ALT No additional P-5'-P [Catalytic activity/Vol] 17 U/L 10-60 [facility] Serum or plasma albumin/glob ulin mass ratioOrdered By: Shantal Kim on 12-14-2021 Albumin/Globulin [Mass ratio] 1.7 {ratio} [facility] Serum or plasma alkaline rita sphatase measurement (enzymatic activity/volume)Ordered By: Shantal Kim on 12-14-2021 ALP [Catalytic activity/Vol] 72 U/L 32-92 [facility] Serum or plasma anion gap de terminationOrdered By: Shantal Kim on 12-14-2021 Anion gap [Moles/Vol] 12.0 mmol/L 6.0-15.0 [facility] Serum or plasma aspartate am inotransferase measurement (enzymatic activity/volume)Ordered By: Shantal Kim on 12-14-2021 AST [Catalytic activity/Vol] 18 U/L 10-42 [facility] Serum or plasma calcium antionette urement (mass/volume)Ordered By: Shantal Kim on 12-14-2021 Calcium [Mass/Vol] 9.7 mg/dL 8.2-10.2 [facility] Serum or plasma chloride dolores surement (moles/volume)Ordered By: Shantal Kim on 12-14-2021 Chloride [Moles/Vol] 102 mmol/L 95-114 [facility] Serum or plasma glucose antionette urement (mass/volume)Ordered By: Shantal Kim on 12-14-2021 Glucose [Mass/Vol] 152 mg/dL 70-100 [facility] Comment on above: ADA recommended refe rence range Random Glucose Reference Range is dependent on time and content of last meal. Glucose of more than 200 mg/dL in a nonstressed, ambulatory subject supports the diagnosis of Diabetes Mellitus. Serum or plasma high density lipoprotein (HDL) cholesterol measurementOrdered By: Shantal Kim on 12-14-2021 Cholesterol in HDL [Mass/Vol] 33 mg/dL 29-71 [facility] Comment on above: HDL CHOL ATP-III CLA SSIFICATION Cardiovascular Risk HDL > or equal to 60 mg/dL LOW HDL < 40 mg/dL HIGH Serum or plasma potassium me asurement (moles/volume)Ordered By: Shantal Kim on 12-14-2021 Potassium [Moles/Vol] 3.7 mmol/L 3.5-5.1 [facility] Serum or plasma sodium measu rement (moles/volume)Ordered By: Shantal Kim on 12-14-2021 Sodium [Moles/Vol] 138 mmol/L 136-146 [facility] Serum or plasma total biliru bin measurement (mass/volume)Ordered By: Shantal Kim on 12-14-2021 Bilirubin [Mass/Vol] 1.0 mg/dL 0.3-1.2 [facility] Serum or plasma total carbon dioxide measurement (moles/volume)Ordered By: Shantal Kim on 12-14-2021 CO2 [Moles/Vol] 27.7 mmol/L 22.0-30.0 [facility] Serum or plasma total choles terol/high density lipoprotein (HDL) cholesterol mass ratOrdered By: Shantal Kim on 12-14-2021 Cholesterol.total/Aimee sterol in HDL [Mass ratio] 4.4 {ratio} <5.0 [facility] Serum or plasma urea nitroge n measurement (mass/volume)Ordered By: Shantal Kim on 12-14-2021 Urea nitrogen [Mass/Vol] 15 mg/dL 9-23 [facility] TSH DL <= 0.005 mIU/L QnOrde red By: Shantal Kim on 12-14-2021 TSH Qn 2.88 m[IU]/L 0.45-5.33 [facility] Thyroxine (T4) free [Mass/vo lume] in Serum or PlasmaOrdered By: Shantal Kim on 12-14-2021 Free T4 [Mass/Vol] 0.75 ng/dL 0.61-1.12 [facility] Triglyceride [Mass/volume] i n Serum or PlasmaOrdered By: Shantal Kim on 12-14-2021 Triglyceride [Mass/Vol] 117 mg/dL 35-149 [facility] Comment on above: TRIG ATP III CLASSIF ICATION TRIG less than 150 mg/dL Normal TRIG 150-199 mg/dL Borderline high TRIG 200-500 mg/dL High TRIG greater than 500 mg/dL Very high Standard traceable to the Center for Disease Conrtrol and Prevention (CDC) test method. Urine microalbumin measureme nt with detection limit of 20 mg/L or less (mass/volume)Ordered By: Shantal Kim on 12-14-2021 Albumin DL <= 20 mg/L (U) [Mass/Vol] 4.1 mg/dL 0.0-1.8 [facility] Urine microalbumin/creatinin e mass ratioOrdered By: Shantal Kim on 12-14-2021 Albumin/Creatinine DL <= 20 mg/L (U) [Mass ratio] 13.0 mg/g 0.0-30.0 [facility] Comment on above: 30-300 mg/g indicate s an increased risk for diabetic nephropathy. Greater than 300 mg/g is consistent with clinical nephropathy. (Am. J. Kidney Disease 1995, 25:107) Vital Signs Date Time Vital Sign Value Performing Clinician Faci lity 03-15-2024 06:48-0500 Body temperature 97.3 [degF] [facility] 03-15-2024 06:48-0500 Diastolic blood pressure 90 mm[Hg] [facility] 03-15-2024 06:48-0500 Heart rate 61 /min [facility]el [facility] 03-15-2024 06:48-0500 Respiratory rate 18 /min [facility] 03-15-2024 06:48-0500 SaO2% (BldA) [Mass fraction] 98 % [facility] 03-15-2024 06:48-0500 Systolic blood pressure 167 mm[Hg] [facility] 03-14-2024 22:56-0500 Body height 175.3 cm [facility] 03-14-2024 22:56-0500 Body mass index (BMI) [Ratio] 23.97 kg/m2 Mikel Guajardo MD Work Phone: [facility] 03-14-2024 22:56-0500 Body weight 73.62 kg Mikel Guajardo MD Work Phone: [facility] Encounters Encounter Date Encounter Type Care Provider Facility Start: 03-21-2024 End: 03-21-2024 ambulatory Kian DAN Facility:CD:[id number] Start: 03-20-2024 End: 03-20-2024 ambulatory Kian DAN [place] [place]: 03-15-2024 End: 03-15-2024 ambulatory Kaylah Davis RN NURSE VICE CHAIRMAN Start: 03-15-2024 End: 03-15-2024 Patient encounter procedure Kaylah Davis RN NURSE VICE CHAIRMAN Comment on above: Referral Request Start: 03-14-2024 End: 03-15-2024 Evaluation and management of inpatient Mikel Guajardo MD Work Phone: [facility] GC 9 [facility] Comment on above: Nephrolithiasis (Xochilt graciela Dx) Start: 03-12-2024 End: 03-14-2024 Evaluation and management of inpatient Dayo Olvera Facility:[facility] Start: 01-18-2024 End: 01-18-2024 Patient encounter procedure MD Shantal Kim Work Phone: [facility] Start: 01-18-2024 End: 01-18-2024 ambulatory MD Shantal Kim Work Phone: [facility] Work Phone: Start: 02-28-2023 End: 02-28-2023 ambulatory SHANTAL KIM Facility:[facility] Start: 02-21-2023 End: 02-21-2023 ambulatory CORIE CLARK Facility:[facility] Start: 02-21-2023 End: 02-21-2023 Patient encounter procedure Corie Clark [facility] Work Phone: Audiology Comment on above: Sensorineural hearin g loss, bilateral (Primary Dx); Tinnitus, bilateral Start: 01-03-2023 End: 01-03-2023 ambulatory MD Shantal Kim Work Phone: [facility] Work Phone: Start: 01-03-2023 End: 01-03-2023 Patient encounter procedure MD Shantal Kim Work Phone: [facility] Start: 12-17-2022 Orders Only Parvez Sullivan Work Phone: Referring Physician Comment on above: Other specified hear ing loss, unspecified ear (Primary Dx) Start: 12-14-2021 End: 12-14-2021 Patient encounter procedure MD Shantal Kim Work Phone: [facility] Start: 10-27-2018 End: 10-28-2018 Patient encounter procedure CRICKET GERMAIN Facility: Procedures Date Procedure Procedure Detail Performing Clinician Start: 03-15-2024 Radiology Comparison study - date and time Graciela Kearney MD Work Phone: Start: 03-15-2024 End: 03-15-2024 Assay of magnesium Graciela Kearney MD Work Phone: Start: 03-14-2024 Glucose blood reagen t strip Jerilyn Dow MD Work Phone: Start: 02-21-2023 HEARING TEST/AUDIOGRAM Corie HA Work Phone: Plan of Treatment Date Care Activity Detail Author Start: 01-17-2029 Lipid panel Cholesterol [facility] Start: 12-11-2027 RSV Vaccine (1 - 1-d ose 75+ series) RSV Vaccine (1 - 1-dose 75+ series) [facility] Start: 12-11-2027 RSV vaccine (adult) (1 - 1-dose 75+ series) RSV vaccine (adult) (1 - 1-dose 75+ series) [facility] Start: 05-02-2024 End: 05-02-2024 Patient encounter procedure 05/02/2024 3:20 PM EST Office Visit [facility] Urologic Surgery [id number] [place] [address] [place] [address] Christina Howell MD [address] [place] [address] [facility] Start: 03-04-2024 Welcome to Medicare Visit (G0402) Welcome to Medicare Visit (G0402) [facility] Start: 01-18-2024 [facility] Start: 12-04-2023 COVID-19 Vaccine ( season) COVID-19 Vaccine ( season) [facility] Start: 12-04-2023 Influenza vaccination Influenza Vacc ine (#1) [facility] Start: 04-04-2023 Advance Directive Discussion Advance Directive Discussion [facility] Start: 12-03-2022 Covid-19 Vaccine () Covid-19 Vaccine ( season) [facility] Start: 12-03-2022 Influenza vaccination Influenza Vacc ine (#1) [facility] Start: 04-04-2022 Advance Directive Discussion Advance Directive Discussion [facility] Start: 04-04-2022 Depression Assessment Depression Ass essment [facility] Start: 03-04-2022 Pneumococcal vaccination Pneumococcal Vaccine(s) (65+ yrs) (2 of 2 - PPSV23 or PCV20) [facility] Start: 03-04-2022 Pneumococcal Vaccine : 65+ (2 - PPSV23 or PCV20) Pneumococcal Vaccine: 65+ (2 - PPSV23 or PCV20) [facility] Start: 03-04-2022 Pneumococcal Vaccine : 65+ (2 of 2 - PPSV23 or PCV20) Pneumococcal Vaccine: 65+ (2 of 2 - PPSV23 or PCV20) [facility] Start: 2017 Pneumococcal Vaccine : 65+ (1 - PCV) Pneumococcal Vaccine: 65+ (1 - PCV) [facility] Start: 2012 Hepatitis B (HBV) Vaccine (optional start 60+ years) Hepatitis B (HBV) Vaccine (optional start 60+ years) [facility] Start: 2012 RSV Vaccine (1 - 1-d ose 60+ series) RSV Vaccine (1 - 1-dose 60+ series) [facility] Start: 2002 Shingrix Vaccine (1 of 2) Shingrix Vaccine (1 of 2) [facility] Start: 1997 Cologuard (FIT-DNA) Cologuard (FIT-D NA) [facility] Start: 1997 Colonoscopy Colonoscopy [facility] Start: 1997 Colorectal Cancer Screening Colorectal Cancer Screening [facility] Start: [address] COLONOGRAPHY [facility] Start: 1997 Diabetes Screening Diabetes Screenin g [facility] Start: 1997 Fecal Occult Blood Fecal Occult Bloo d [facility] Start: 1997 [facility] Start: 1997 SIGMOIDOSCOPY SIGMOIDOSCOPY [facility] Start: 12-11-1987 Lipid 1996 panel - Serum or Plasma Lipid Screening [facility] Start: 12-11-1987 Lipid panel Lipid Screening [facility] Start: 12-11-1971 Hepatitis A (HAV) Vaccine (optional start 19+ years) Hepatitis A (HAV) Vaccine (optional start 19+ years) [facility] Start: 12-11-1971 Urine microalbumin profile DTaP,Tdap,Td Vaccine (1 - Tdap) [facility] Start: 1970 Anxiety Screening Anxiety Screening [facility] Start: 1970 Depression Screening Depression Scre ening [facility] Start: 1970 Hepatitis C Screening Hepatitis C Sc reening [facility] Start: 1970 [facility] Start: 1970 T[facility] Booster [facility] Start: 06-09-1953 Covid-19 Vaccine (#1) Covid-19 Vacci ne (#1) [facility] Start: 1952 Screening for malign ant neoplasm of colon Colonoscopy [facility] End: 03-15-2024 DOWNLOAD [employer] IMAGES TO [facility] DOWNLOAD [employer] IMAGES TO [facility] Routine Today for 1 Occurrences starting 03/15/2024 until 03/15/2024 [facility] Work Phone: Comment on above: Today for 1 Occurren shagufta starting 03/15/2024 until 03/15/2024 Glucose measurement estimated from glycated hemoglobin [facility] End: 12-18-2023 HEARING TEST/AUDIOGRAM HEARING TEST/AUDIOGRAM Audiology Routine Other specified hearing loss, unspecified ear 1 Occurrences starting 12/17/2022 until 12/18/2023 [facility] Work Phone: Comment on above: 1 Occurrences starti ng 12/17/2022 until 12/18/2023 [facility] Immunizations Immunization Date Immunization Notes Care Provider Bianca walsh 01-21-2023 Influenza, injectabl e, adjuvanted, quadrivalent, preservative free (EJC=030) Mikel Guajardo MD Work Phone: [facility] 01-21-2023 influenza virus vacc ine, unspecified formulation Mikel Guajardo MD Work Phone: [facility] 02-18-2022 Influenza, injectabl e, high-dose seasonal, quadrivalent, preservative free (SQK=513) Mikel Guajardo MD Work Phone: [facility] 03-04-2021 Influenza, injectabl e, high-dose seasonal, quadrivalent, preservative free (GJA=064) Mikel Guajardo MD Work Phone: [facility] 03-04-2021 pneumococcal conjuga te vaccine, 13 valent Mikel Guajardo MD Work Phone: [facility] 03-18-2020 zoster vaccine recombinant Sreedhar Guajardo MD Work Phone: [facility] 01-09-2020 Influenza, injectabl e, high-dose seasonal, quadrivalent, preservative free (VCW=453) Mikel Guajardo MD Work Phone: [facility] 01-09-2020 zoster vaccine recombinant Sreedhar Guajardo MD Work Phone: [facility] 01-13-2019 influenza, injectabl e, quadrivalent, preservative free Mikel Guajardo MD Work Phone: [facility] 2017 influenza, high dose seasonal, preservative-free Mikel Guajardo MD Work Phone: [facility] 11-24-2016 Influenza, injectabl e, Madin [place] Canine Kidney, preservative free, quadrivalent Mikel Guajardo MD Work Phone: [facility] Payers Date Payer Category Payer [facility] - MEDICARE [id number] 2024 Self-pay [id number] 2024 Unknown [id number] 2023 Unknown [facility] MEDICARE ADVANTAGE [id number] 2023-Present [phone] [address] [place] [address] [facility] [id number] 2020 Private Health Insurance [employer] A ETNA MEDICARE SUPPLEMENT [id number] 2020-Present [phone] [address] [address] [place] [address] Indemnity [id number] 2020 Private Health Insurance CLI [id number] 2017 Medicare MEDICARE MEDICAR E A AND B [id number] 2017-Present [phone] [address] [address] [place] [address] Medicare [id number] 2017 Medicare [id number] 1959 Unknown [id number] 1952 Unknown [id number] 1952 Unknown [id number] 1952 Unknown [id number] 1952 Unknown [id number] 1952 Unknown [id number] Unknown [id number] Unknown [id number] Social History Date Type Detail Facility Start: 03-09-2020 Tobacco smoking status WVIS Never smoked tobacco (finding) [facility] Start: 1950 Sex Assigned At Male [facility] Tobacco smoking stat us [facility] Tobacco smoking consumption unknown [facility] Start: 1950 Sex Assigned At Not on file [facility] Start: 02-21-2023 End: 03-14-2024 Gender identity Not on file [facility] Start: 02-21-2023 End: 03-14-2024 History of Social function [facility] National Score (1-10 0), lower number is lower risk 61 [facility] Start: 02-17-2023 Gender identity Identifies as male gender (finding) [facility] Start: 02-17-2023 Sexual orientation Heterosexual (finding) [facility] Has the [employer], [employer], or water [employer] threatened to shut off services in your home in past 12Mo No [facility] (I/We) worried wheth er (my/our) food would run out before (I/we) got money to buy more. Never true [facility] Start: 03-12-2024 Sex Male (finding) [facility] Clinical Notes 02-21-2023 to 03-21-2024 Telephone Encounter - Kaylah Davis RN - 03/15/2024 10:21 AM ESTTelephone Encounter - DavisKaylah RN - 03/15/2024 10:21 AM Delfin Farooq RN - 03/15/2024 9:46 AM EST Note Date & Type Note Facility 03-21-2024 Note Patient Education Nephrology Laser Therapy for Kidney Stones, Care After After laser therapy for kidney stones, it is common to have: ??? Pain. ??? A burning feeling when you pee (urinate). ??? Small amounts of blood in your pee (urine). ??? A need to pee a lot. ??? Parts of the kidney stone in your pee. ??? Mild discomfort in your back when you pee. You may have this if you had a small mesh tube (stent) placed during the procedure. Follow these instructions at home: Medicines ??? Take [id number]-[id number] and prescription medicines only as told by your health care provider. ??? If you were prescribed antibiotics, take them as told by your provider. Do not stop using the antibiotic even if you start to feel better. ??? Ask your provider if the medicine prescribed to you: ? Requires you to avoid driving or using machinery. ? Can cause constipation. You may need to take these actions to prevent or treat constipation: ? Drink enough fluid to keep your pee pale yellow. ? Take ptcn-acj-wtvzqbu or prescription medicines. ? Eat foods that are high in fiber, such as beans, whole grains, and fresh fruits and vegetables. ? Limit foods that are high in fat and processed sugars, such as fried or sweet foods. Activity ??? If you were given a sedative during the procedure, it can affect you for several hours. Do not drive or operate machinery until your provider says that it is safe. ??? Return to your normal activities as told by your provider. Ask your provider what activities are safe for you. General instructions ??? Your provider may recommend that you drink a lot of water for a few hours after your procedure. If you have heart or kidney disease, ask your provider how much you should drink. ??? You may be asked to strain your pee to collect any stone pieces that you pass. Your provider may have these pieces tested. ??? Do not take baths, swim, or use a hot tub until your provider approves. Ask your provider if you may take warm baths to soothe the burning. ??? Keep all follow-up visits. If you have a stent, you will need to go back to your provider to have it removed. Your provider may give you more instructions. Make sure you know what you can and cannot do. Contact a health care provider if: ??? You have pain or a burning feeling that lasts for more than 2 days. ??? You feel nauseous. ??? You vomit more and more often. ??? You have trouble peeing. ??? You have pain that gets worse or does not get better with medicine. ??? You have a fever or shaking chills. Get help right away if: ??? You cannot pee, even when your bladder feels full. ??? You faint. ??? You have chest pain, shortness of breath, or cough up blood. ??? You have: ? Bright red blood or blood clots in your pee. ? Severe pain or discomfort. ? Pain in your abdomen. ? Swelling in your legs. These symptoms may be an emergency. Get help right away. Call 911. ??? Do not wait to see if the symptoms will go away. ??? Do not drive yourself to the hospital. This information is not intended to replace advice given to you by your health care provider. Make sure you discuss any questions you have with your health care provider. Document Revised: 11/19/2022 Document Reviewed: 11/19/2022 [employer] Patient Education ? 2023 [employer] Laser Therapy for Kidney Stones Laser therapy for kidney stones is a procedure to break up rock-like masses that form inside the kidneys (kidney stones). It is done using a device that beams a strong light (laser) on the kidney stones. This breaks the stones up into small pieces. These small pieces may leave your body when you pee (urinate) or may be taken out during the procedure. You may need laser therapy if you have kidney stones that are painful or that are stopping you from being able to pee. Tell a health care provider about: ??? Any allergies you have. ??? All medicines you are taking, including vitamins, herbs, eye drops, creams, and ftrn-gkj-ljwqsbc medicines. ??? Any problems you or family members have had with anesthesia. ??? Any bleeding problems you have. ??? Any surgeries you have had. ??? Any medical conditions you have. ??? Whether you are or may be . What are the risks? Your health care provider will talk with you about risks. These may include: ??? Infection. ??? Bleeding. ??? Allergic reactions to medicines. ??? Damage to: ? The part of your body that drains pee (urine) from the bladder (urethra). ? The bladder. ? The tube that connects the bladder to the kidneys (ureter). ??? Urinary tract infection (UTI). ??? Urethral stricture. This is when the urethra is narrowed by scarring. ??? Trouble peeing. ??? Blockage of the kidney. This may be caused by a piece of kidney stone. What happens before the procedure? When to stop eating and drinking Follow instructions from your provider about what you may eat and drink. Thes (more content not included)... [facility] 03-15-2024 Telephone encounter Note Daughter calling with physician referral: Patient referred to urology Department. Daughter denies any new or worsening symptoms of which a provider is not aware:Yes Patient was at [facility] then was transferred to [facility]. Patient is currently admitted at [facility] with kidney stone. He will be discharged today from [facility] and would like to follow up with a [facility] urologist. Transferred to [facility] for appointment. [facility] 03-15-2024 Miscellaneous Notes Daughter calling with physician referral: Patient referred to urology Department. Daughter denies any new or worsening symptoms of which a provider is not aware:Yes Patient was at [facility] then was transferred to [facility]. Patient is currently admitted at [facility] with kidney stone. He will be discharged today from [facility] and would like to follow up with a [facility] urologist. Transferred to [facility] for appointment. documented in this encounter [facility] 03-15-2024 History of Present illness Narrative SW/CM has reviewed patient's chart and assessed that there are no discharge planning needs at this time. The following was reviewed to determine no SW/CM needs warranted. 1). PT/OT evaluations indicate pt can DC home with no needs or PT/OT evaluations are not warranted. 2). No wound care or IV Antibiotics indicated at this time. 3). No SW/CM consults placed through nursing admission screen 4). Pt does not meet the criteria of being a Medicare recipient that has a high or rising readmission rate. Patient will continue to be discussed in multi-disciplinary rounds and monitored daily. If any of the the above changes, SW/CM will complete appropriate assessments and interventions. Delfin JASSO, RN, CM Care Coordination department secure epic chat documented in this encounter [facility] 03-15-2024 Note Attestation signed by Gabriele Morin MD at 03/15/2024 12:28 PM Teaching Physician Note: I saw and evaluated the patient. I personally obtained the jacinto and critical portions of the history and physical exam. I reviewed the resident's documentation and discussed the patient with the resident. I agree with the resident's medical decision making as documented in the resident's note. Hospital Problems as of 03/15/2024 * (Principal) Nephrolithiasis Type 2 diabetes mellitus without complication, without long-term current use of insulin (HCC) Sensorineural hearing loss, bilateral More than 30 minutes spent by me in preparing this patient's discharge and in counseling the patient and/or family on the nature of the illness requiring hospital care. Gabriele Story MD DISCHARGE SUMMARY [facility] [address] [place] [address] Mimi Mcbride Date of : 1950 73 year old male Attending Gabriele Morin MD Date of Admission 03/14/2024 Date of Discharge 03/15/24 Final Diagnosis: Nephrolithiasis Hospital Problems as of 03/15/2024 * (Principal) Nephrolithiasis Type 2 diabetes mellitus without complication, without long-term current use of insulin (HCC) No discharge procedures on file. No future appointments. Click the Form Tab For addt'l facility discharge info click 'Facility Discharge' tab. Reason for Hospitalization NEPHROLITHIASIS Significant Findings 8-9 mm R distal renal stone, no hydronephrosis or obstruction Hospital Course Transfer from [facility] 8-9 mm R distal renal stone, no hydronephrosis or obstruction. R flank pain, poor PO tolerance, vitally and hemodynamically stable and afebrile. Managed conservatively with fluids, flomax and ceftriaxone. Transferred to [facility] for urology service. At [facility] vitally and hemodynamically stable and afebrile without pain or vomiting at time of admission. Urology review of CT 8-9 mm stone at the R UVJ with mild upstream hydronephrosis. Patient denied hematuria, urgency, frequency and has been urinating without issue.= No leukocytosis and no DARREN (WBC 5.6, Cr 0.86). UA at [facility] negative for infection. At time of discharge patient feels well denies nausea/vomiting and states he is not in any pain. No acute urologic intervention indicated. Urology to arrange follow up here at [facility] to discuss stone treatment. Alternatively, the patient can elect to follow up in [place], in which case, he should call to cancel the appointment at [facility]. Patient determined medically appropriate for discharge with close follow-up in the outpatient setting. I provided the patient and/or family/surrogate with the following information: Explanation of the primary diagnosis, and secondary diagnoses where applicable, including test results, Discussion of any new medications and treatments, including expected benefits and potential major side effects, Explanation of previous treatments or medications that are discontinued, Discussion of post-hospital day-to-day care needs, and Follow-up plans, and warning signs that should prompt more urgent follow-up Uyen Dos Santos MD Internal Medicine-Pediatrics Resident, PGY-1 [facility] 03-15-2024 Evaluation + Plan note Associated Problem(s): Nephrolithiasis 8-9 mm R renal stone per [facility] notes - history of kidney stones, he has always successfully passed them without intervention - no hydronephrosis or obstruction - getting images uploaded from [employer] with Progression - no concern for uti at this time Plan: - urology consulted, fu recs - Pain control: tylenol - flomax 04mg daily [facility] 03-15-2024 Evaluation + Plan note Associated Problem(s): Type 2 diabetes mellitus without complication, without long-term current use of insulin (HCC) Mar 2024 A1C 8.5 Metformin at home 24h gluc range 132-199 - [facility] 03-15-2024 Miscellaneous Notes Associated Problem(s): Nephrolithiasis 8-9 mm R renal stone per [facility] notes - history of kidney stones, he has always successfully passed them without intervention - no hydronephrosis or obstruction - getting images uploaded from [employer] with Progression - no concern for uti at this time Plan: - urology consulted, fu recs - Pain control: tylenol - flomax 04mg daily Associated Problem(s): Type 2 diabetes mellitus without complication, without long-term current use of insulin (HCC) Mar 2024 A1C 8.5 Metformin at home 24h gluc range 132-199 - Images from the original note were not included. [facility] Internal Medicine: Intermediate Plan Note Patient: Mimi Mcbride : 1950 Sex: male Admit Date: 03/14/2024 Length of stay: 1 day(s) No chief complaint on file. SUBJECTIVE: Mimi Mcbride is a 73 year old male admitted on 03/14/2024 for non-obstructing kidney stone with a PMH of HTN, HLD. Patient notes has history of kidney stones. Seen at hospital for pain related to kidney stone, however pain resolved and did not take medication he was prescribed out on. Pain began sudden and intense, re-presented to another outside hospital. OBJECTIVE: BP 170/78 (BP Location: right arm) Pulse 64 Temp 97.6 F (36.4 C) (Temporal) Resp 18 Ht 5' 9 (1.753 m) Wt 162 lb 4.8 oz (73.6 kg) SpO2 100% BMI 23.97 kg/m Pertinent Physical Exam Findings: Gen: Alert and oriented, in no apparent distress HEENT: Conjunctivae noninjected, neck supple, head NCAT Lungs: Comfortably oxygenating on RA Abd: Soft, NT, ND Ext: warm, no edema Skin: No rashes, no lesions Neuro: A/OX3, no focal deficits Pertinent Lab Findings: Cr 0.86 ASSESSMENT & PLAN: #Nephrolithiasis - 9 mm stone, transferred from OSH for urology -pain managed with morphine at outside hospital -patient without pain on exam, producing urine Plan: -urology consult -monitor urine output -NPO -start pain management with oxy and tylenol, advance as needed Code Status: Full Code Remainder of plan per medical intern note. Hollie Dyer DO Internal Medicine PGY-2 documented in this encounter [facility] 03-15-2024 Consult note Associated Order (s): IP SURGERY UROLOGY CONSULT Images from the original note were not included. Department of Urology CONSULT NOTE Referring Physician: Gabriele Morin MD Chief Complaint/Reason for Consultation R distal ureteral stone HPI Mimi Mcbride is a 73 year old male with history of nephrolithiasis, DM, HTN, presenting as a transfer from [facility] with R distal ureteral stone. Patient states that he has had intermittent R flank pain since Tuesday. Seen at [facility], discharged with pain medications. On my review, CT shows a 8-9 mm stone at the R UVJ with mild upstream hydronephrosis. Denies hematuria, urgency, frequency. Urinating without issue. Afebrile and HDS. No leukocytosis and no DARREN (WBC 5.6, Cr 0.86). UA at [facility] negative for infection. The patient currently feels well. Denies N/V. He is not in any pain. The patient states that he passed a 7 mm stone on the LEFT 3-4 years ago. Has never had to have a stone treated. Admits that he does not typically drink much water. No past medical history on file. No past surgical history on file. Social History Socioeconomic History Marital status: Social Drivers of Health Food Insecurity: Unknown (03/14/2024) Hunger Vital Sign Worried About Running Out of Food in the Last Year: Never true Transportation Needs: Unknown (03/14/2024) PRAPARE - Transportation Lack of Transportation (Medical): No Intimate Partner Violence: Unknown (03/14/2024) Humiliation, Afraid, Rape, and Kick questionnaire Emotionally Abused: No No family history on file. Allergies: Patient has no known allergies. Review of Systems: Denies N/V, fever, chills Denies hematuria, dysuria, urgency, frequency Denies abdominal pain PHYSICAL EXAMINATION BP 167/90 (BP Location: right arm) Pulse 61 Temp 97.3 F (36.3 C) (Temporal) Resp 18 Ht 5' 9 (1.753 m) Wt 162 lb 4.8 oz (73.6 kg) SpO2 98% BMI 23.97 kg/m Vital sign ranges over the past 24 hours (retrieved 03/15/2024 at 9:15 AM): Tmax (24 hours): 97.7 F (36.5 C) Pulse Av.8 Min: 61 Max: 73 Systolic (24hrs), Av , Min:143 , Max:170 Diastolic (24hrs), Av, Min:75, Max:93 MAP (mmHg) Av.3 mmHg Min: 91 mmHg Max: 113 mmHg Resp Av Min: 18 Max: 18 SpO2 Av.5 % Min: 97 % Max: 100 % General Appearance: Alert, NAD, well developed Skin: No rashes, warm and dry HEENT: Atraumatic, EOMI, no oral lesions, MM moist Neck: No lesions, supple Cardiovascular: RRR Lungs: nonlabored, no audible wheezing Breast/Chest: No chest wall deformities or tenderness Abdomen: Soft, nondistended, no guarding, nontender. No CVA tenderness. Genitourinary: Voids spontaneously MSK: Normal tone, moves all extremities Neurologic: Ox3, appropriate, follows commands Labs CBC (last 3 years, up to 8 values) 03/15/2024 3:22 AM WBC 5.7 RBC 4.17 Hgb 12.3 Hct 35.9 MCV 86 RDW 13.3 Plt 144 BMP (last 3 years, up to 8 values) 03/15/2024 3:22 AM Na 141 K 3.9 Cl 107 CO2 27 Gap 11 Glu 137 BUN 17 Cr 0.86 Ca 8.9 eGFR 93 Imaging CTAP from [facility] 03/12/24 (read only) IMPRESSION: There has been interval development of right-sided hydroureter with an 8 mm stone now at the right ureterovesical junction. There is interval resolution of the left-sided distal ureteral stone with left-sided hydroureter. Impression: Mimi Mcbride is a 73 year old male with history of nephrolithiasis, DM, HTN, presenting as a transfer from [facility] with 8 mm R distal ureteral stone. Afebrile and HDS. No leukocytosis and no DARREN (WBC 5.6, Cr 0.86). UA negative for infection. The patient currently feels well, pain is well controlled. Denies N/V. He is not in any pain. Recommendations: - No acute urologic intervention - ok for diet - Patient can be discharged if pain is controlled - We will arrange follow up here at [facility] to discuss stone treatment. Alternatively, the patient can elect to follow up in [place], in which case, he should call to cancel the appointment at [facility]. Please page if the patient's clinical status changes. If the patient's pain cannot be adequately controlled with medications, he may require interval stent placement. Coretta Marcos MD PhD Urologic Surgery PGY-5 Service Pager: [phone] Cosigned by Rustam Villa MD at 03/15/2024 11:32 AM EST [facility] Work Phone: 03-15-2024 Consult note Associated Order (s): IP SURGERY UROLOGY CONSULT Images from the original note were not included. Department of Urology CONSULT NOTE Referring Physician: Gabriele Morin MD Chief Complaint/Reason for Consultation R distal ureteral stone HPI Mimi Mcbride is a 73 year old male with history of nephrolithiasis, DM, HTN, presenting as a transfer from [facility] with R distal ureteral stone. Patient states that he has had intermittent R flank pain since Tuesday. Seen at [facility], discharged with pain medications. On my review, CT shows a 8-9 mm stone at the R UVJ with mild upstream hydronephrosis. Denies hematuria, urgency, frequency. Urinating without issue. Afebrile and HDS. No leukocytosis and no DARREN (WBC 5.6, Cr 0.86). UA at [facility] negative for infection. The patient currently feels well. Denies N/V. He is not in any pain. The patient states that he passed a 7 mm stone on the LEFT 3-4 years ago. Has never had to have a stone treated. Admits that he does not typically drink much water. No past medical history on file. No past surgical history on file. Social History Socioeconomic History Marital status: Social Drivers of Health Food Insecurity: Unknown (03/14/2024) Hunger Vital Sign Worried About Running Out of Food in the Last Year: Never true Transportation Needs: Unknown (03/14/2024) PRAPARE - Transportation Lack of Transportation (Medical): No Intimate Partner Violence: Unknown (03/14/2024) Humiliation, Afraid, Rape, and Kick questionnaire Emotionally Abused: No No family history on file. Allergies: Patient has no known allergies. Review of Systems: Denies N/V, fever, chills Denies hematuria, dysuria, urgency, frequency Denies abdominal pain PHYSICAL EXAMINATION BP 167/90 (BP Location: right arm) Pulse 61 Temp 97.3 F (36.3 C) (Temporal) Resp 18 Ht 5' 9 (1.753 m) Wt 162 lb 4.8 oz (73.6 kg) SpO2 98% BMI 23.97 kg/m Vital sign ranges over the past 24 hours (retrieved 03/15/2024 at 9:15 AM): Tmax (24 hours): 97.7 F (36.5 C) Pulse Av.8 Min: 61 Max: 73 Systolic (24hrs), Av , Min:143 , Max:170 Diastolic (24hrs), Av, Min:75, Max:93 MAP (mmHg) Av.3 mmHg Min: 91 mmHg Max: 113 mmHg Resp Av Min: 18 Max: 18 SpO2 Av.5 % Min: 97 % Max: 100 % General Appearance: Alert, NAD, well developed Skin: No rashes, warm and dry HEENT: Atraumatic, EOMI, no oral lesions, MM moist Neck: No lesions, supple Cardiovascular: RRR Lungs: nonlabored, no audible wheezing Breast/Chest: No chest wall deformities or tenderness Abdomen: Soft, nondistended, no guarding, nontender. No CVA tenderness. Genitourinary: Voids spontaneously MSK: Normal tone, moves all extremities Neurologic: Ox3, appropriate, follows commands Labs CBC (last 3 years, up to 8 values) 03/15/2024 3:22 AM WBC 5.7 RBC 4.17 Hgb 12.3 Hct 35.9 MCV 86 RDW 13.3 Plt 144 BMP (last 3 years, up to 8 values) 03/15/2024 3:22 AM Na 141 K 3.9 Cl 107 CO2 27 Gap 11 Glu 137 BUN 17 Cr 0.86 Ca 8.9 eGFR 93 Imaging CTAP from [facility] 03/12/24 (read only) IMPRESSION: There has been interval development of right-sided hydroureter with an 8 mm stone now at the right ureterovesical junction. There is interval resolution of the left-sided distal ureteral stone with left-sided hydroureter. Impression: Mimi Mcbride is a 73 year old male with history of nephrolithiasis, DM, HTN, presenting as a transfer from [facility] with 8 mm R distal ureteral stone. Afebrile and HDS. No leukocytosis and no DARREN (WBC 5.6, Cr 0.86). UA negative for infection. The patient currently feels well, pain is well controlled. Denies N/V. He is not in any pain. Recommendations: - No acute urologic intervention - ok for diet - Patient can be discharged if pain is controlled - We will arrange follow up here at [facility] to discuss stone treatment. Alternatively, the patient can elect to follow up in [place], in which case, he should call to cancel the appointment at [facility]. Please page if the patient's clinical status changes. If the patient's pain cannot be adequately controlled with medications, he may require interval stent placement. Coretta Marcos MD PhD Urologic Surgery PGY-5 Service Pager: [phone] Cosigned by Rustam Villa MD at 03/15/2024 11:32 AM EST documented in this encounter [facility] 03-15-2024 History and physical note Images from the original note were not included. [facility] Internal Medicine: H&P Note Patient: Mimi Mcbride : 1950 Sex: male Room: [place] [id number] Admit Date: 03/14/2024 Today's Date: 03/15/2024 Length of stay: 1 day(s) HISTORY OF PRESENT ILLNESS: CHIEF COMPLAINT: No chief complaint on file. Mimi Mcbride is a 73 year old male admitted on 03/14/2024 with a PMH of diabetes, HTN, HLD, hx of kidney stones presenting with concern of nephrolithiasis. At bedside, he says since last Tuesday he has had intermittent right flank pain. First went to [facility] for this pain, informed he had 9mm kidney stone got discharged with meds but was tolerating pain ok and then a few days later the right sided flank pain worsened. Represented to [facility] for this pain. Urinating fine. No hematuria. Tolerating PO fine. No nausea, vomiting. No fevers, chills. Active at home, runs 1 mile everyday when not sick. Has had kidney stones before but always able to pass them in 1 day or so. Transferred from [facility] after starting on ceftriaxone to see urology. Per paper chart, patient was actively vomiting during exam. No alcohol, tobacco or other drug use. - VS: Vitals: 03/14/24 2256 BP: 170/78 Pulse: 64 Resp: 18 Temp: 97.6 F (36.4 C) SpO2: 100% - Labs: *pending* - Imaging: no access [facility] paper chart: Right sided hydroureter with 8mm stone at right ureterovercal junction - Interventions: keflex, flomax, percocet, zofran, transferred here for urology, started on ceftriaxone ROS: As noted in HPI MEDICAL HISTORY: PMH: see hpi PSH: non contributory Outpatient meds: insulin, glyburide, statin, lisinopril-hydrochlorothiazide Social: see above Objective OBJECTIVE: Temperature: [97.6 F (36.4 C)-97.7 F (36.5 C)] 97.6 F (36.4 C) Heart Rate: [64-73] 64 Respiratory Rate: [18] 18 BP: (163-170)/(78-93) 170/78 I/Os: No intake or output data in the 24 hours ending 03/15/24 0207 LABS: CBC: (None found w/in last 24 hrs) WBC N/A \ Hgb N/A / Plt N/A / Hct N/A \ BMP: (None found w/in last 24 hrs) N/A N/A N/A Gluc N/A N/A N/A N/A Mg PO4 Ca N/A N/A N/A (1.6-2.8) (2.5-4.8) (8.4-10) PHYSICAL EXAM: General: NAD. Comfortable appearing in bed. Hard of hearing. Appears younger than stated age. Heart: RRR. No murmurs or rub. Lungs: CTAB. Abdomen: Soft. Non-tender. Slightly distended. No CVA tenderness on either side. Extremities: No LE edema. Neuro: No focal deficits. A&Ox3 Skin: Warm & dry. Active Meds: tamsulosin 0.4 mg Daily insulin regular 2-12 Units Every 6 hours Heparin Sodium (Porcine) PF 5,000 Units 2x Daily IMAGING No Chest x-ray found Echocardiogram date: Not Found CONSULTS: None ASSESSMENT AND PLAN: SUMMARY: Mimi Mcbride is a 73 year old male presenting with concern of nephrolithiasis. PROBLEM LIST: #Nephrolithiasis - 8-9 mm R renal stone per [facility] notes - history of kidney stones, he has always successfully passed them without intervention - no hydronephrosis - getting images uploaded from [facility] with Progression - no concern for uti at this time, will stop antibiotics and await urology input Plan - urology consulted, fu recs. They need images - Pain control: tylenol for now - NPO for now - flomax 04mg daily Chronic: #HTN - home: lisinopril-hydrochlorothiazide 20-25mg - unclear if patient has underlying DARREN, waiting for labs Plan - hold for now, monitor BP #DMII - glargine 20units QAM, glyburide Plan - sliding scale insulin #HLD - on statin, will hold for now. Patient not sure of medication name or dosage DVT Prophylaxis: Subcutaneous Heparin BID Analgesia: Tylenol prn Diet: NPO IVF: None Code Status: Full Code Emergency Contact: PATIENT: Home: Mobile: Not on file. EMERGENCY CONTACT #1: GRACIELA MCBRIDE (Spouse) home: [phone], work: EMERGENCY CONTACT #2: GUY FIELDS (Daughter) home: [phone], work: Dispo: Home when medically ready Outpatient followup: PCP, No primary care provider on file. Plan is preliminary until finalized by the attending physician. See attending note for final plan. Graciela Kearney MD PGY1 Internal Medicine [facility] 03-15-2024 History and physical note Images from the original note were not included. [facility] Internal Medicine: H&P Note Patient: Mimi Mcbride : 1950 Sex: male Room: [place] [address] Admit Date: 03/14/2024 Today's Date: 03/15/2024 Length of stay: 1 day(s) HISTORY OF PRESENT ILLNESS: CHIEF COMPLAINT: No chief complaint on file. Mimi Mcbride is a 73 year old male admitted on 03/14/2024 with a PMH of diabetes, HTN, HLD, hx of kidney stones presenting with concern of nephrolithiasis. At bedside, he says since last Tuesday he has had intermittent right flank pain. First went to [facility] for this pain, informed he had 9mm kidney stone got discharged with meds but was tolerating pain ok and then a few days later the right sided flank pain worsened. Represented to [facility] for this pain. Urinating fine. No hematuria. Tolerating PO fine. No nausea, vomiting. No fevers, chills. Active at home, runs 1 mile everyday when not sick. Has had kidney stones before but always able to pass them in 1 day or so. Transferred from [facility] after starting on ceftriaxone to see urology. Per paper chart, patient was actively vomiting during exam. No alcohol, tobacco or other drug use. - VS: Vitals: 03/14/24 2256 BP: 170/78 Pulse: 64 Resp: 18 Temp: 97.6 F (36.4 C) SpO2: 100% - Labs: *pending* - Imaging: no access [facility] paper chart: Right sided hydroureter with 8mm stone at right ureterovercal junction - Interventions: keflex, flomax, percocet, zofran, transferred here for urology, started on ceftriaxone ROS: As noted in HPI MEDICAL HISTORY: PMH: see hpi PSH: non contributory Outpatient meds: insulin, glyburide, statin, lisinopril-hydrochlorothiazide Social: see above Objective OBJECTIVE: Temperature: [97.6 F (36.4 C)-97.7 F (36.5 C)] 97.6 F (36.4 C) Heart Rate: [64-73] 64 Respiratory Rate: [18] 18 BP: (163-170)/(78-93) 170/78 I/Os: No intake or output data in the 24 hours ending 03/15/24 0207 LABS: CBC: (None found w/in last 24 hrs) WBC N/A \ Hgb N/A / Plt N/A / Hct N/A \ BMP: (None found w/in last 24 hrs) N/A N/A N/A Gluc N/A N/A N/A N/A Mg PO4 Ca N/A N/A N/A (1.6-2.8) (2.5-4.8) (8.4-10) PHYSICAL EXAM: General: NAD. Comfortable appearing in bed. Hard of hearing. Appears younger than stated age. Heart: RRR. No murmurs or rub. Lungs: CTAB. Abdomen: Soft. Non-tender. Slightly distended. No CVA tenderness on either side. Extremities: No LE edema. Neuro: No focal deficits. A&Ox3 Skin: Warm & dry. Active Meds: tamsulosin 0.4 mg Daily insulin regular 2-12 Units Every 6 hours Heparin Sodium (Porcine) PF 5,000 Units 2x Daily IMAGING No Chest x-ray found Echocardiogram date: Not Found CONSULTS: None ASSESSMENT AND PLAN: SUMMARY: Mimi Mcbride is a 73 year old male presenting with concern of nephrolithiasis. PROBLEM LIST: #Nephrolithiasis - 8-9 mm R renal stone per [facility] notes - history of kidney stones, he has always successfully passed them without intervention - no hydronephrosis - getting images uploaded from [facility] with Progression - no concern for uti at this time, will stop antibiotics and await urology input Plan - urology consulted, fu recs. They need images - Pain control: tylenol for now - NPO for now - flomax 04mg daily Chronic: #HTN - home: lisinopril-hydrochlorothiazide 20-25mg - unclear if patient has underlying DARREN, waiting for labs Plan - hold for now, monitor BP #DMII - glargine 20units QAM, glyburide Plan - sliding scale insulin #HLD - on statin, will hold for now. Patient not sure of medication name or dosage DVT Prophylaxis: Subcutaneous Heparin BID Analgesia: Tylenol prn Diet: NPO IVF: None Code Status: Full Code Emergency Contact: PATIENT: Home: Mobile: Not on file. EMERGENCY CONTACT #1: GRACIELA MCBRIDE (Spouse) home: [phone], work: EMERGENCY CONTACT #2: GUY FIELDS (Daughter) home: [phone], work: Dispo: Home when medically ready Outpatient followup: PCP, No primary care provider on file. Plan is preliminary until finalized by the attending physician. See attending note for final plan. Graciela Kearney MD PGY1 Internal Medicine documented in this encounter [facility] 03-14-2024 Plan of care note Images from the original note were not included. [facility] Internal Medicine: Intermediate Plan Note Patient: Mimi Mcbride : 1950 Sex: male Admit Date: 03/14/2024 Length of stay: 1 day(s) No chief complaint on file. SUBJECTIVE: Mimi Mcbride is a 73 year old male admitted on 03/14/2024 for non-obstructing kidney stone with a PMH of HTN, HLD. Patient notes has history of kidney stones. Seen at hospital for pain related to kidney stone, however pain resolved and did not take medication he was prescribed out on. Pain began sudden and intense, re-presented to another outside hospital. OBJECTIVE: BP 170/78 (BP Location: right arm) Pulse 64 Temp 97.6 F (36.4 C) (Temporal) Resp 18 Ht 5' 9 (1.753 m) Wt 162 lb 4.8 oz (73.6 kg) SpO2 100% BMI 23.97 kg/m Pertinent Physical Exam Findings: Gen: Alert and oriented, in no apparent distress HEENT: Conjunctivae noninjected, neck supple, head NCAT Lungs: Comfortably oxygenating on RA Abd: Soft, NT, ND Ext: warm, no edema Skin: No rashes, no lesions Neuro: A/OX3, no focal deficits Pertinent Lab Findings: Cr 0.86 ASSESSMENT & PLAN: #Nephrolithiasis - 9 mm stone, transferred from OSH for urology -pain managed with morphine at outside hospital -patient without pain on exam, producing urine Plan: -urology consult -monitor urine output -NPO -start pain management with oxy and tylenol, advance as needed Code Status: Full Code Remainder of plan per medical intern note. Hollie Dyer DO Internal Medicine PGY-2 [facility] 02-28-2023 Note HNO ID: [id number] Author: Noé Cervantes AUD Service: ? Author Type: Municipal Services Manager Type: Progress Notes Filed: 03/30/2023 4:53 PM Note Text: [facility] [place] [facility] Balance [facility] ADULT COCHLEAR IMPLANT CANDIDACY EVALUATION Audiometric Testing Name: Mimi Mcbride [facility]#: [id number] Date of Service: February 28, 2023 Date of : 1950 Age: [age] year old Referred by: Parvez Martínez III, MD This patient was referred for an evaluation to determine cochlear implant candidacy. Relevant case history includes the following: HISTORY: Audiologic Audiometric testing was completed at the [facility] on 02/21/2023. See results below. 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; feels left ear is better ear Tinnitus: Constant Dizziness: Denied Otalgia: Denied Otorrhea: Denied Aural Fullness: Denied Family History of Hearing loss: siblings with hearing loss and wear hearing aids History of noise exposure: Significant history (37 years) without use of hearing protection devices Otologic/medical Previous Otologic Surgeries: Denied Medical Conditions: Type 2 Diabetes History of chemotherapy/radiation: Denied Head trauma: Denied Amplification Current Make/Model: None History of amplification: Fit with binaural hearing aids at [employer] in 2018, but never wore devices consistently. He returned 3-4 times for adjustments, but never found they were beneficial. Communication limitations/participation restrictions Social: Withdrawing from social situations; often embarrassed due to hearing incorrectly; fakes it through conversations - Difficulty hearing 's voice (soft spoken) Occupational: Retired Phone: Limited phone use; uses Speaker Phone and holds phone against his ear Television: Uses Closed Captions QUESTIONNAIRE RESULTS The patient completed the following questionnaires based on their current experience and scored as follows: Hearing Handicap Inventory 02/27/2023 HHIE Total Score 92 Dizziness Handicap Inventory 02/27/2023 Dizziness or imbalance No Tinnitus Handicap Inventory 02/27/2023 Tinnitus Yes Total Score 68 Speech Spatial Qualities Questionaire 02/27/2023 Total Score 2.35 Speech Hearing Subscore 0.5 Spatial Hearing Subscore 5 Qualities of Hearing Subscore 1.28 PROMIS Global Health Scale 02/27/2023 02/27/2023 Physical Health Percentile 41 41 Mental Health Percentile 26* 26* AUDIOMETRIC TESTING HEARING AID TEST RESULTS Clinic Phonak Geeta L90-UP BTE hearing aids were programmed to the patient?s most recent audiogram. Devices were verified utilizing the Audioscan verifit equipment to NAL-NL 1 fitting methods. AIDED SII Meeting Target NAL-NL1 Gain RIGHT Ear CLINIC Device 54 Yes LEFT Ear CLINIC Device 60 Yes Testing proceeded using Clinic hearing aids. AIDED SPEECH TESTING The contralateral ear was Plugged and Muffed and Masked during testing. Speech perception testing was completed using recorded stimuli in quiet in the sound field at conversational level (60 social contact worker); results were: Pxmuyzxqw-Beawdjt-Geomhqice Words (CNC) Test Condition List # Phonemes Words Right Ear (Clinic WARNER) 7 80% 52% Left Ear (Clinic WARNER) 4 72% 56% Bilateral 10 87% 68% AZ BIO (quiet, -10 dB HL) Test Condition List # Score Right Ear 4 61% Left Ear 7 69% Bilateral 6 86% AZ BIO (+5 SNR) Test Condition List # Score Right Ear 8 20% Left Ear 2 33% Bilateral 3 63% INTERPRETATION OF RESULTS Speech perception testing suggests limited benefit in the right and left only conditions for CNC words. Patient performs best in the bilateral condition in quiet and in background noise. SUMMARY AND RECOMMENDATIONS Based on the audiometric testing: Not a Candidate Based on the audiometric testing, this patient does not meet Medicare criteria for cochlear implantation at this time. While the above speech perception measures identify areas of difficulty in everyday listening situations, there are additional technologies that could provide benefit to this patient. These include updated hearing aid technology, as well as remote microphone/Duane technology. Recommendations: 1) Schedule Hearing Aid Evaluation to discuss new amplification options. 2) Recommend re-evaluation of cochlear implantation annually, or sooner if changes arise. 3) Patient opted to cancel Otology appointment with Parvez Martínez MD as he is not yet a candidate for cochlear implantation. This case will be discussed at the next scheduled Hearing Implant Program (HIP) team meeting. The patient understands that determination of candidacy is an interdisciplinary process and final determination of candidacy will be communicated via certified mail following team review. TOTAL TIME: 90 minutes Evaluation of auditory status: 20 minutes programming/verifying hearing aids + 45 minutes aided testing = 65 minutes (more content not included)... [facility] 02-21-2023 History of Present illness Narrative [facility] [place] AUDIOLOGIC EVALUATION REPORT Name: Mimi Mcbride [facility]#: [id number] Date of Service: 02/21/2023 Date of : 1950 Age: [age] year old Referred by: Shantal Kim ([facility]) [address] [facility] [address] Referred for: Evaluation of suspected change in hearing, tinnitus, or balance. Referral documented: In an order in [facility] Patient's major complaints: Mimi Mcbride was seen for an initial audiologic evaluation. 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 Risk of Falls Documentation for over 65 years old: No history of falls reported so minimal to no risk IMPRESSIONS RIGHT EAR: Sensorineural hearing loss LEFT EAR: Sensorineural hearing loss AUDIOLOGIC EVALUATION Following is a brief interpretation of the obtained findings from the audiologic evaluation. Refer to the Auditory Test Record for complete audiometric results. The patient was counseled about the test findings and appropriate audiologic recommendations were made. SUMMARY: Audiogram can be viewed under Forms/Audiology/SmartForm. OTOSCOPY RIGHT EAR: Otoscopic inspection revealed ear canal was clear with an identifiable cone of light. LEFT EAR: Otoscopic inspection revealed ear canal was clear with an identifiable cone of light. TYMPANOMETRY Description of procedure: This test is an objective evaluation of middle ear function. CPT code: 33474 RIGHT EAR: Normal ME pressure with reduced TM compliance (mobility). LEFT EAR: Normal ME pressure with reduced TM compliance (mobility). PURE TONE AUDIOMETRY AND SPEECH TESTING Description of procedure: This test is an objective evaluation hearing sensitivity via air and bone conduction and speech recognition testing. CPT code: 70497 RIGHT EAR: Hearing Sensitivity: Normal hearing sensitivity through 750 Hz with mild sensorineural hearing loss at 1 kHz precipitously sloping to profound 4-8 kHz. Word Recognition Score: Very Poor (26%). WRS is poorer than expected given hearing sensitivity. Words were presented at 100 dB HL is above (greater than or equal to 60 dB HL) intensity level for average conversational speech. The NU-6 Ordered by Difficulty Word List (50 words) was used for testing. LEFT EAR: Hearing Sensitivity: Normal hearing sensitivity through 1 kHz with moderate sensorineural hearing loss at 1.5 kHz precipitously sloping to profound at 6 and 8 kHz. Word Recognition Score: Very Poor (52%). WRS is poorer than expected given hearing sensitivity. Words were presented at 95 dB HL which is above (greater than or equal to 60 dB HL) intensity level for average conversational speech. The NU-6 Ordered by Difficulty Word List (50 words) was used for testing. RECOMMENDATIONS * Continue medical follow-up with Parvez Martínez MD. *Continue with scheduled Cochlear Implant Evaluation 02/28/23. Dilcia Lang, CCC/A copied to: Shantal Kim ([facility]) [address] [facility] [address] [place] Abbrev- iation Definition Degree of hearing sensitivity dB range WNL within normal limits WNL 0 - 20 SNHL sensorineural hearing loss Mild 20-40 CHL conductive hearing loss Moderate 40-55 MHL mixed hearing loss Moderately-Severe 55-70 WRS word recognition score Severe 70-90 ME middle ear Profound 90 + TM tympanic membrane documented in this encounter [facility] 02-21-2023 Note HNO ID: [id number] Author: Corie Clark AUD Service: ? Author Type: Municipal Services Manager Type: Progress Notes Filed: 02/21/2023 1:47 PM Note Text: [facility] [place] AUDIOLOGIC EVALUATION REPORT Name: Mimi Mcbride [facility]#: [id number] Date of Service: 02/21/2023 Date of : 1950 Age: [age] year old Referred by: Shantal Fan) [address] [facility] [address] Referred for: Evaluation of suspected change in hearing, tinnitus, or balance. Referral documented: In an order in [facility] Patient's major complaints: Mimi Mcbride was seen for an initial audiologic evaluation. 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 Risk of Falls Documentation for over 65 years old: No history of falls reported so minimal to no risk IMPRESSIONS RIGHT EAR: Sensorineural hearing loss LEFT EAR: Sensorineural hearing loss AUDIOLOGIC EVALUATION Following is a brief interpretation of the obtained findings from the audiologic evaluation. Refer to the Auditory Test Record for complete audiometric results. The patient was counseled about the test findings and appropriate audiologic recommendations were made. SUMMARY: Audiogram can be viewed under Forms/Audiology/SmartForm. OTOSCOPY RIGHT EAR: Otoscopic inspection revealed ear canal was clear with an identifiable cone of light. LEFT EAR: Otoscopic inspection revealed ear canal was clear with an identifiable cone of light. TYMPANOMETRY Description of procedure: This test is an objective evaluation of middle ear function. CPT code: 62672 RIGHT EAR: Normal ME pressure with reduced TM compliance (mobility). LEFT EAR: Normal ME pressure with reduced TM compliance (mobility). PURE TONE AUDIOMETRY AND SPEECH TESTING Description of procedure: This test is an objective evaluation hearing sensitivity via air and bone conduction and speech recognition testing. CPT code: 00855 RIGHT EAR: Hearing Sensitivity: Normal hearing sensitivity through 750 Hz with mild sensorineural hearing loss at 1 kHz precipitously sloping to profound 4-8 kHz. Word Recognition Score: Very Poor (26%). WRS is poorer than expected given hearing sensitivity. Words were presented at 100 dB HL is above (greater than or equal to 60 dB HL) intensity level for average conversational speech. The NU-6 Ordered by Difficulty Word List (50 words) was used for testing. LEFT EAR: Hearing Sensitivity: Normal hearing sensitivity through 1 kHz with moderate sensorineural hearing loss at 1.5 kHz precipitously sloping to profound at 6 and 8 kHz. Word Recognition Score: Very Poor (52%). WRS is poorer than expected given hearing sensitivity. Words were presented at 95 dB HL which is above (greater than or equal to 60 dB HL) intensity level for average conversational speech. The NU-6 Ordered by Difficulty Word List (50 words) was used for testing. RECOMMENDATIONS * Continue medical follow-up with Parvez Martínez MD. *Continue with scheduled Cochlear Implant Evaluation 02/28/23. Corie Clark, Dilcia, CCC/A copied to: Shantal Kim ([facility]) [facility] [address] [place] Abbrev- iation Definition Degree of hearing sensitivity dB range WNL within normal limits WNL 0 - 20 SNHL sensorineural hearing loss Mild 20-40 CHL conductive hearing loss Moderate 40-55 MHL mixed hearing loss Moderately-Severe 55-70 WRS word recognition score Severe 70-90 ME middle ear Profound 90 + TM tympanic membrane [facility] Evaluation note No assessment inform ation available [facility] Work Phone: Evaluation note Diagnosis Other specified hearing loss, unspecified ear- Primary [facility] Diagnosis Sensorineural hearing loss, bilateral- Primary Tinnitus, bilateral Unspecified tinnitus [facility] Diagnosis Nephrolithiasis- Primary Calculus of kidney Nephrolithiasis Calculus of kidney Type 2 diabetes mellitus without complication, without long-term current use of insulin (HCC) [facility] N[facility]* Auth/Cert (Routine) Specialty Diagnoses / Procedures Referred By Contac t Referred To Contact Case Management Diagnoses DARREN, urethral lithiasis Procedures N/A Mikel Guajardo MD [address] [place] [address] Phone: tel: fax: [facility] [address] [place] [address] Phone: tel: Referral ID Status Reason Start Date Expiration Date Visits Re quested Visits Authorized [id number] 3 3 [facility] Summary Purpose Family History No Family History Records FoundNo Family History Records FoundNo Family History Records FoundNo Family History Records FoundNo Family History Records Found Advance Directives No Advanced Directives Records Found Advance Directive Response Recorded Date/ Time Advance Directives No June 22, 2 018 1:39pm Date Activated Date Inactivated Comments 03/14/2024 11:20 PM Question Answer Comments Documentation of decision pr ocess for this code status: Patient and surrogate unable or unavailable to discuss. Defaulting to the previously documented code status. Chief Complaint and Reason for Visit Chief Complaint Z13.296 E11.9 Z12.5 I10 E783.0 E03.9 Chief Complaint Z12.5 I10 E78.0 E11. 9 Z13.296 Chief Complaint Z12.5 I10 E78.00 E11 .9 Z13.296 Reason for Referral Specialty Diagnoses / Procedures Referred By Conthafsa t Referred To Contact Diagnoses Other specified hearing loss, unspecified ear Procedures HEARING TEST/AUDIOGRAM COMPRE AUDIOMETRY THRESHOLD EVAL SP RECOGNIJ Parvez Martínez MD [id number] [place] [address] Referral ID Status Reason Start Date Expiration Date Visits Requested Visits Authorized [id number] Authorized Auto-Generat ed Referral 12/17/2022 12/18/2023 1 1 Specialty Diagnoses / Procedures Referred By Mariah mark Referred To Contact Procedures HEARING TEST/AUDIOGRAM COMPRE AUDIOMETRY THRESHOLD EVAL SP RECOGNIJ Corie Clark, AUD [address] [place] [address] [place] [address] Referral ID Status Reason Start Date Expiration Date Visits Requested Visits Authorized [id number] Pending Review Auto-Generat ed Referral 3 02/22/2024 1 1 Additional Source Comments (unrecognized sect ion and content) No Status Records FoundNo Status Records FoundNo Status Records FoundNo Status Records FoundNo Status Records Found INFORMATION SOURCE (unrecogn ized section and content) DATE CREATED AUTHOR 12/13/2018 Kirstie Wu [facility] DATE CREATED AUTHOR AUTHOR'S ORGANIZ ATION 01/05/2024 [facility] DATE CREATED AUTHOR AUTHOR'S ORGANIZ ATION 03/17/2024 [facility] DATE CREATED AUTHOR AUTHOR'S ORGANIZ ATION 03/21/2024 [facility] DATE CREATED AUTHOR AUTHOR'S ORGANIZ ATION 03/22/2024 Eldon Torres [facility] Care Teams (unrecognized sec tion and content) Team Status: Active Member Role Status Dates Shantal Kim MD Primary Care Provider Active Team Status: Inactive Member Role Status Dates Shantal Kim MD Primary Care Provider, Attending Rudy raymond Active 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 Relationship Specialty Start Date End Date Shantal Kim MD [address] [place] [address] Referring Family Medicine 12/17/22 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 Relationship Specialty Start Date End Date Shantal Kim MD [address] [place] [address] Referring Family Medicine 12/17/22 Team Status: Inactive Member Role Status Dates Shantal Kim MD Primary Care Provide r, Attending Provider Active Start: January 18, 2024 End: January 18, 2024 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 Relationship Specialty Start Date End Date Shantal Kim MD [address] [place] [address] Referring Family Medicine 12/17/22 Goals (unrecognized section and content) Goals may be documented in a n alternate sectionGoals may be documented in an alternate sectionGoals may be documented in an alternate section Source Comments (unrecognize d section and content) In the event this informatio n is protected by the Federal Confidentiality of Alcohol and Drug Abuse Patient Records regulations: The Federal rules restrict any use of the information to criminally investigate or prosecute any alcohol or drug abuse patient.[facility] CenterIn the event this information is protected by the Federal Confidentiality of Alcohol and Drug Abuse Patient Records regulations: The Federal rules restrict any use of the information to criminally investigate or prosecute any alcohol or drug abuse patient.[facility] CenterIn the event this information is protected by the Federal Confidentiality of Alcohol and Drug Abuse Patient Records regulations: The Federal rules restrict any use of the information to criminally investigate or prosecute any alcohol or drug abuse patient.[facility] Reason for Visit (unrecogniz ed section and content) Specialty Diagnoses / Procedures Referred By Mariah mark Referred To Contact Diagnoses Other specified hearing loss, unspecified ear Procedures HEARING TEST/AUDIOGRAM COMPRE AUDIOMETRY THRESHOLD EVAL SP Parvez Rai MD [address] [place] [address] [place] [address] Referral ID Status Reason Start Date Expiration Date V isits Requested Visits Authorized [id number] Closed Auto-Generate d Referral 12/17/2022 12/18/2023 1 1 Reason Comments Referral Request Scheduled Active and Recently Administ ered Medications (unrecognized section and content) Medication Order 03/13/2024 03/14/2024 03/15/2024 Heparin Sodium (Porcine) PF 5000 UNIT/0.5ML injection 5,000 Units, Subcutaneous, 2 TIMES DAILY, First dose on Opal 12/12/24 at 0000, Until Discontinued 0000 (Hold/Not Given - Provider: Callie Morrison RN - Reason: Other - Comment: Not approved by pharmacy.)0900 (Hold/Not Given - Provider: Janice Bray RN - Reason: Patient refused)2100 (Due) insulin regular (HumuLIN R) 100 UNIT/ML injection 2-12 Units, Subcutaneous, EVERY 6 HOURS, First dose on Tue03/15/24 at 0200, Until Discontinued 0200 (Hold/Not Given - Provider: Callie Morrison RN - Reason: Not indicated - Comment: blood sugar 132)0800 (Hold/Not Given - Provider: Janice Bray RN - Reason: Not indicated)1400 (Due)2000 (Due) magnesium sulfate 4 GM/100ML in 100 mL ivpb (COMPLETED) 4,000 mg, Intravenous, ONCE, 1 dose, On Tue03/15/24 at 0600 0642 (IV New Bag - P rovider: Callie Morrison RN) tamsulosin (FLOMAX) capsule 0.4 mg, Oral, DAILY, First dose on Tue03/15/24 at 0900, Until Discontinued 0931 (Given - Provid er: Janice Bray RN) PRN Medication Order 03/13/2024 03/14/2024 03/15/2024 acetaminophen (TYLENOL) tablet 650 mg, Oral, EVERY 4 HOURS PRN, Starting on Tue03/14/24 at 2339, Until Discontinued, Moderate Pain (pain score 4,5,6), Mild Pain (pain score 1,2,3) dextrose (GLUTOSE) 40 % oral gel(Linked Group 1) 15 g of glucose, Buccal, PRN, Starting on Tue03/15/24 at 0113, Until Discontinued, blood glucose between 50 - 69 mg/dL, and with no IV access, alert and able to swallow. dextrose (GLUTOSE) 40 % oral gel(Linked Group 1) 30 g of glucose, Buccal, PRN, Starting on Tue03/15/24 at 0113, Until Discontinued, blood glucose of 49mg/dL or less, and with no IV access, alert and able to swallow. dextrose 10 % iv infusion(Linked Group 1) 125 mL, Intravenous, at 999 mL/hr, PRN, Starting on Tue24 at 0113, Until Discontinued, For blood glucose less than 70 mg/dL, with IV access and with loss of consciousness or unable to swallow or NPO glucagon (GLUCAGEN) 1 MG injection(Linked Group 1) 1 mg, Subcutaneous, PRN, Starting on Opal 24 at 0113, Until Discontinued, For blood glucose less than 70 mg/dL and with no IV access with loss of consciousness or alert and unable to swallow. Linked Groups Order Group 1: dextrose 10 % iv infusionJump to med 125 mL, Intravenous, at 999 mL/hr, PRN, Starting on Opal 03/15/24 at 0113, Until Discontinued, For blood glucose less than 70 mg/dL, with IV access and with loss of consciousness or unable to swallow or NPO Or glucagon (GLUCAGEN) 1 MG injectionJump to med 1 mg, Subcutaneous, PRN, Starting on Opal 24 at 0113, Until Discontinued, For blood glucose less than 70 mg/dL and with no IV access with loss of consciousness or alert and unable to swallow. Or dextrose (GLUTOSE) 40 % oral gelJump to med 15 g of glucose, Buccal, PRN, Starting on Opal 03/15/24 at 0113, Until Discontinued, blood glucose between 50 - 69 mg/dL, and with no IV access, alert and able to swallow. Or dextrose (GLUTOSE) 40 % oral gelJump to med 30 g of glucose, Buccal, PRN, Starting on Opal 03/15/24 at 0113, Until Discontinued, blood glucose of 49mg/dL or less, and with no IV access, alert and able to swallow. FOR RECORDS PERTAINING TO PATIENTS WHO ARE OR HAVE BEEN ENROLLED IN A CHEMICAL DEPENDENCY/SUBSTANCEABUSE PROGRAM, SOME INFORMATION MAY BE OMITTED. This clinical summary was aggregated from multiple sources. Caution should be exercised in using it in the provision of clinical care. This summary normalizes information from multiple sources, and as a consequence, information in this document may materially change the coding, format and clinical context of patient data. In addition, data may be omitted in some cases. CLINICAL DECISIONS SHOULD BE BASED ON THE PRIMARY CLINICAL RECORDS. [facility]. provides no warranty or guarantee of the accuracy or completeness of information in this document.
[2024-03-22 08:09] LABS: Glucometer 162 mg/dL (74-106)
[2024-03-22] MEDS: LACTATED RINGER'S SOLUTION 1,000 ML 50 ML IV ×2 (08:18→10:00)
[2024-03-22 08:21] LABS: INR 1.06; Partial Thromboplastin Time 27.2 sec (22.3-36.2); Prothrombin Time 11.2 sec (9.0-11.6)
[2024-03-22] MEDS: CEFAZOLIN SODIUM 2 GM/50 ML D5W PREMIX IV (09:15)
--- NOTE | 2024-03-22 10:19 | PM.URSON ---
Urology Surgery Operative Note Operative Note Procedure Date: 03/22/24 Time Out Performed: yes Pre-op Diagnosis: Obstructing right distal ureteral calculus Post-op Diagnosis: same as pre-op Procedures performed: 1. Cystoscopy. 2. Right rigid ureteral dilation. 3. Right ureteroscopy. 4. Holmium laser lithotripsy of large right ureteral calculus. 5. Stone fragment basket extraction. 6. Placement of 6 Bolivian variable length right ureteral stent Anesthesia: General-LMA Primary Surgeon: Kian Dan Complications: None Estimated blood loss (mL): 5 Findings: Large right distal ureteral calculus Specimens: Ureteral calculus fragments Drains: 6 Bolivian variable length right ureteral stent Indications for Procedures: This diabetic gentleman has an 8 mm distal right ureteral calculus that he is unable to pass. He has had pain nearly every day for 2 weeks. He is strongly desirous for ureteroscopic stone manipulation and probable right stent placement. He has signed an informed consent after risks were explained. Detailed description of Procedure: The patient was brought to the operating room and placed on the operating room table in the supine position. SCDs were placed on the lower extremities and turned on and functioning during the entire case. Timeout was done by all parties in the room. We all agreed upon the patient's identification and the planned procedures for this patient. Genn. anesthesia was then administered. The patient was then repositioned into the modified dorsal lithotomy position. All pressure points were satisfactorily padded. Genitalia were sterilely prepped and draped in usual fashion. I started by passing a 22 Bolivian Olympus cystoscope per urethra and into the bladder. The anterior urethra was normal. Prostatic urethra revealed by lobar obstruction. Panendoscopy in the bladder revealed moderate trabeculation. The right UO was very edematous and inflamed red. I then passed a Glidewire through the scope and cannulated the right ureter and got it beyond the stone and up into the kidney. I then used 10 Bolivian rigid dilator to dilate the distal ureter. The cystoscope was then removed. I then passed a semirigid ureteroscope adjacent to the wire through the urethra into the bladder and into the right ureter. I was able to get right to the stone. I then used a 270 Angstrom laser fiber and passed it through the scope and made contact with the stone. With the holmium laser on the fragment mode we started at 6 W and increased to a maximum of 10 W. We did get fragmentation. I then used a 0 tip nitinol basket and engaged pieces and brought them to the base of the bladder and dumped them there. I went up and down the ureter numerous times extracting pieces until the right ureter was free of stone. The ureteroscope was removed. I then backloaded the cystoscope over the wire and passed it into the bladder. I then slid a 6 Bolivian variable length ureteral stent over the wire up to the kidney. The wire was removed and there were good curls in the kidney and in the bladder. The Ilich evacuator was then used to get all of the stone pieces out of the bladder and these were all sent for stone analysis. The bladder was drained of its contents and the scope was then removed. He was then transferred to a rlamont bed and wheeled to PACU in stable condition.
[2024-03-22] MEDS: SOLIFENACIN SUCCINATE 10 MG TABLET PO (10:43)
[2024-03-29 13:07] LABS: Calcium Oxalate Monohydrate 50 % (.); Size 3x3 mm (.); Uric Acid 50 % (.)
== END 2024-03-22 11:51 | disposition home or self-care (01) ==
PROVIDERS: Family Provider Family Medicine; PCP Family Medicine; Visit Provider Urology
PROC: (CPT 52356; principal; 2024-03-22 09:00)
DX: N13.2 Hydronephrosis with renal and ureteral calculous obstruction (principal); N40.1 Benign prostatic hyperplasia with lower urinary tract symptoms; R35.0 Frequency of micturition; R39.15 Urgency of urination; R35.1 Nocturia; Z84.1 Family history of disorders of kidney and ureter; E11.9 Type 2 diabetes mellitus without complications; E78.5 Hyperlipidemia, unspecified; I10 Essential (primary) hypertension; N28.1 Cyst of kidney, acquired; Z79.84 Long term (current) use of oral hypoglycemic drugs; Z79.4 Long term (current) use of insulin; Z79.899 Other long term (current) drug therapy; Z87.442 Personal history of urinary calculi
CPT/HCPCS: 52356; 36415; 76000; 82365; 82948; 85610; 85730; 99999; J0690; J2250; J2371; J2405; J2704; J3010